=== PATIENT | male | born 1940 | race Caucasian/White ===

== ENCOUNTER 2020-04-08 06:21 | Day surgery (SDC) | payer MEDICARE ==
[2020-04-08] MEDS ORDERED: Sodium Chloride 0.9% 10 ML Syringe FLUSH PRN (07:30)
--- NOTE | 2020-04-08 09:39 | OR ---
DATE OF PROCEDURE: 04/08/2020 SURGEON: Taryn Reyes MD POSTOPERATIVE CARE: Postoperative care will be provided mainly at the [address] [place] [address] [facility] in conjunction with [facility] / [facility]. PREOPERATIVE DIAGNOSIS: Cataract, right eye. POSTOPERATIVE DIAGNOSIS: Cataract, right eye. PROCEDURE: Phacoemulsification with intraocular lens placement, right eye. ANESTHESIA: Topical and intracameral. ESTIMATED BLOOD LOSS: Minimal. COMPLICATIONS: None. PATHOLOGY SPECIMENS: None. SURGICAL FINDINGS: None. INDICATION FOR PROCEDURE: The patient is an 79-year-old male with history of a visually significant cataract in the right eye, which interfered with activities of daily living. This consisted of a nuclear sclerosis cataract. Following careful discussion of the risks, benefits and alternatives to cataract extraction with intraocular lens placement including blindness and , the patient elected to proceed, and informed, written consent was obtained prior to the procedure. DESCRIPTION OF THE PROCEDURE: The patient was previously identified, and a lincoln placed above the right eye. All sources, including the patient, indicated that the right eye was the correct eye. The patient was subsequently taken to the operating room where standard monitors were applied. The patient was then prepped and draped in the usual sterile fashion for ophthalmic surgery. Attention was first directed at the 12 o'clock position where a paracentesis port was fashioned. Shugar solution followed by Viscoat was instilled into the eye. Attention was then directed to the 8:30 position where a triplanar incision was made in a near-clear manner using a keratome. A continuous capsulorrhexis was then made using a combination of the cystotome and Utrata forceps. Hydrodissection was achieved using a balanced salt solution, and the lens rotated nicely. Phacoemulsification was then done using a modified [id number] technique without complication. Phaco time was 6.45 CDE. The remaining cortex was removed using the irrigation/aspiration handpiece. Provisc was then instilled into the eye. A Technis lens, model PCB00, at 25.0 Diopters was then placed in the capsular bag using an [place] injector. The remaining viscoelastic was removed using the irrigation/aspiration forceps. All wounds were then checked and found to be watertight. The lid speculum and drapes were removed. Maxitrol ointment was placed in the patient's right eye, and the eye was shielded. The patient tolerated the procedure well. The patient was instructed to follow up tomorrow. All needle and sponge counts were correct at the end of the procedure. Taryn Reyes MD /[id number]
== END 2020-04-08 08:41 | disposition home or self-care (01) ==
LOC: JP.SDS 06:21
PROVIDERS: ATTEND Ophthalmology
DX: E11.36 Type 2 diabetes mellitus with diabetic cataract (principal); I10 Essential (primary) hypertension

== ENCOUNTER 2020-04-22 06:17 | Day surgery (SDC) | payer MEDICARE ==
[2020-04-22] MEDS ORDERED: Sodium Chloride 0.9% 10 ML Syringe FLUSH PRN (07:00)
--- NOTE | 2020-04-22 11:22 | OR ---
DATE OF PROCEDURE: 04/22/2020 SURGEON: Taryn Reyes MD POSTOPERATIVE CARE: Postoperative care will be provided mainly at the [address] [place] [address] [facility] in conjunction with [facility] / [facility]. PREOPERATIVE DIAGNOSIS: Cataract, left eye. POSTOPERATIVE DIAGNOSIS: Cataract, left eye. PROCEDURE: Phacoemulsification with intraocular lens placement, left eye. ANESTHESIA: Topical and intracameral. ESTIMATED BLOOD LOSS: Minimal. COMPLICATIONS: None. PATHOLOGY SPECIMENS: None. SURGICAL FINDINGS: None. INDICATION FOR PROCEDURE: The patient is an 79-year-old male with history of a visually significant cataract in the left eye, which interfered with activities of daily living. This consisted of a nuclear sclerosis cataract. Following careful discussion of the risks, benefits and alternatives to cataract extraction with intraocular lens placement including blindness and , the patient elected to proceed, and informed, written consent was obtained prior to the procedure. DESCRIPTION OF THE PROCEDURE: The patient was previously identified, and a lincoln placed above the left eye. All sources, including the patient, indicated that the left eye was the correct eye. The patient was subsequently taken to the operating room where standard monitors were applied. The patient was then prepped and draped in the usual sterile fashion for ophthalmic surgery. Attention was first directed at the 12 o'clock position where a paracentesis port was fashioned. Shugar solution followed by Viscoat was instilled into the eye. Attention was then directed to the 8:30 position where a triplanar incision was made in a near-clear manner using a keratome. A continuous capsulorrhexis was then made using a combination of the cystotome and Utrata forceps. Hydrodissection was achieved using a balanced salt solution, and the lens rotated nicely. Phacoemulsification was then done using a modified [id number] technique without complication. Phaco time was 5.78 CDE. The remaining cortex was removed using the irrigation/aspiration handpiece. Provisc was then instilled into the eye. A Technis lens, model DCB00, at 24.5 diopters was then placed in the capsular bag using an [place] injector. The remaining viscoelastic was removed using the irrigation/aspiration forceps. All wounds were then checked and found to be watertight. The lid speculum and drapes were removed. Maxitrol ointment was placed in the patient's left eye, and the eye was shielded. The patient tolerated the procedure well. The patient was instructed to follow up tomorrow. All needle and sponge counts were correct at the end of the procedure. There were no surgical findings. Taryn Reyes MD /[id number]
== END 2020-04-22 08:32 | disposition home or self-care (01) ==
LOC: JP.SDS 06:17
PROVIDERS: ATTEND Ophthalmology
DX: H26.9 Unspecified cataract (principal)
CPT/HCPCS: 66984; V2632

== ENCOUNTER 2020-06-07 18:49 | Observation (INO) | payer MEDICARE ==
--- NOTE | 2020-06-07 19:31 | EDM.PDOC ---
ED HPI GENERAL MEDICAL PROBLEM - General Chief Complaint: Cardiovascular Problem Stated Complaint: LOW PULSE, MID BACK PAIN Time Seen by Provider: 06/07/20 19:30 Source of Information: Reports: Patient, Old Records, RN History Limitations: Reports: No Limitations - History of Present Illness INITIAL COMMENTS - FREE TEXT/NARRATIVE: 79 yo male was drinking a pop and developed pain between his shoulder blades. He tried a couple of different antacids at home without relief. Pain is not worse with movement or breathing. He noticed his HR is slower than normal. No nausea or SOB. No new medications. No black or bloody stools. No hx of the same. No relief with burping. Is already taking ASA daily. He thinks his normal HR is closer to 90/min. A review of his prior ER record shows a HR at that time of 85/min, but he was not on metoprolol then as he is now. Onset: Today, Sudden Onset Date: 06/07/20 Duration: Hour(s):, Constant Location: Reports: Back (mid) Quality: Reports: Ache Severity: Moderate Improves with: Reports: None Worsens with: Reports: None Context: Reports: Other (See HPI) Associated Symptoms: Denies: Chest Pain, Cough, Diaphoresis, Fever/Chills, Nausea/Vomiting, Shortness of Breath Treatments MONUMENT MASON: Reports: Other (see below) (See HPI) Posterior Back Pain Score (Numeric/FACES): 7 - Related Data Allergies Allergy/AdvReac Type Severity Reaction Status Date / Time No Known Allergies Allergy Verified 06/07/20 19:13 Home Meds: Home Meds Aspirin 81 mg PO DAILY 01/15/18 [History] Cetirizine HCl [Zyrtec] 10 mg PO BEDTIME PRN 01/15/18 [History] Lovastatin [Mevacor] 10 mg PO DAILY 01/15/18 [History] Multivitamin with Minerals [Multiple Vitamin] 1 tab PO DAILY 01/15/18 [History] lisinopriL [Prinivil] 10 mg PO DAILY 01/15/18 [History] metFORMIN HCl [Metformin HCl] 1,000 mg PO BID 01/15/18 [History] Albuterol/Ipratropium [Combivent Respimat] 1 puff IH Q4H PRN 04/06/20 [History] Levothyroxine Sodium [Euthyrox] 112 mcg PO DAILY 04/06/20 [History] glipiZIDE [Glucotrol XL] 2.5 mg PO BID 04/06/20 [History] Past Medical History HEENT History: Reports: Cataract, Impaired Vision, Other (See Below) Other HEENT History: wears glasses Cardiovascular History: Reports: High Cholesterol, Hypertension Gastrointestinal History: Reports: GERD Genitourinary History: Reports: Other (See Below) Other Genitourinary History: prostate CA Musculoskeletal History: Reports: Fracture Endocrine/Metabolic History: Reports: Diabetes, Type II, Hypothyroidism Oncologic (Cancer) History: Reports: Prostate Dermatologic History: Reports: Eczema - Infectious Disease History Infectious Disease History: Reports: Chicken Pox, Shingles - Past Surgical History HEENT Surgical History: Reports: Cataract Surgery, Tonsillectomy GI Surgical History: Reports: Colonoscopy Male Surgical History: Reports: Other (See Below) Other Male Surgeries/Procedures: enlarged prostate - "they froze it" Musculoskeletal Surgical History: Reports: Arthroscopic Knee Social & Family History - Family History Family Medical History: No Pertinent Family History - Tobacco Use Tobacco Use Status *Q: Never Tobacco User - Caffeine Use Caffeine Use: Reports: Coffee, Soda - Recreational Drug Use Recreational Drug Use: No ED ROS GENERAL - Review of Systems Review Of Systems: See Below Constitutional: Reports: No Symptoms HEENT: Reports: No Symptoms Respiratory: Reports: No Symptoms Cardiovascular: Reports: No Symptoms GI/Abdominal: Reports: No Symptoms : Reports: No Symptoms Musculoskeletal: Reports: Back Pain (mid thoracic) Skin: Reports: No Symptoms Neurological: Reports: No Symptoms ED EXAM, GENERAL - Physical Exam Exam: See Below Exam Limited By: No Limitations General Appearance: Alert, WD/WN, No Apparent Distress Eye Exam: Bilateral Eye: Normal Inspection Ears: Normal External Exam, Normal Canal, Hearing Grossly Normal, Normal TMs Ear Exam: Bilateral Ear: Auricle Normal, Canal Normal, TM normal Nose: Normal Inspection, No Blood Throat/Mouth: Normal Inspection, Normal Lips, Normal Oropharynx, Normal Voice, No Airway Compromise Head: Atraumatic, Normocephalic Neck: Normal Inspection Respiratory/Chest: No Respiratory Distress, Lungs Clear, Normal Breath Sounds, No Accessory Muscle Use, Chest Non-Tender Cardiovascular: Regular Rate, Rhythm, No Edema GI/Abdominal: Normal Bowel Sounds, Soft, Non-Tender, No Distention. No: Distended, Tender Back Exam: Normal Inspection. No: CVA Tenderness (R), CVA Tenderness (L), Paraspinal Tenderness (none), Vertebral Tenderness (none) Extremities: Normal Inspection, Normal Range of Motion, Non-Tender, No Pedal Edema Neurological: Alert, Oriented, CN II-XII Intact, Normal Cognition, No Motor /Sensory Deficits Psychiatric: Normal Affect, Normal Mood Skin Exam: Warm, Dry, Intact, Normal Color, No Rash #1 Interpretation EKG Date: 06/07/20 Time: 19:25 Rhythm: NSR Rate (Beats/Min): 59 [place]: Normal P-Wave: Present QRS: Normal ST-T: Normal QT: Normal Comparison: NA - No Prior EKG #2 Interpretation EKG Date: 06/07/20 Time: 20:15 Rhythm: NSR Rate (Beats/Min): 49 [place]: Normal P-Wave: Present QRS: Normal ST-T: Normal QT: Normal Comparison: Change From Previous EKG (Rate decrease only noted.) Course - Vital Signs Text/Narrative:: CXR-negative Raciel Otto called @ 0008h Last Recorded V/S: Last Vital Signs Temp 36.5 C 06/07/20 19:14 Pulse 54 L 06/07/20 23:00 Resp 13 06/07/20 23:00 BP 117/54 L 06/07/20 23:00 Pulse Ox 98 06/07/20 23:00 - Orders/Labs/Meds Orders: Active Orders 24 hr Category Date Time Status Cardiac Monitoring [RC] .As Directed Care 06/07/20 18:53 Active EKG Documentation Completion [RC] ASDIRECTED Care 06/07/20 19:20 Active EKG Documentation Completion [RC] ASDIRECTED Care 06/07/20 20:12 Active Oxygen Therapy Adult [Oxygen Therapy, ED] [RC] Care 06/07/20 20:12 Active ASDIRECTED Chest 2V [CR] Stat Exams 06/07/20 19:38 Taken Iopamidol [Isovue-300 (61%)] Med 06/07/20 22:15 Active 100 ml IV . DIRECTED Nitroglycerin [Nitrostat] Med 06/07/20 20:45 Active 0.4 mg SL Q5M PRN Sodium Chloride 0.9% [Normal Saline] 1,000 ml Med 06/07/20 20:15 Active IV ASDIRECTED Sodium Chloride 0.9% [Normal Saline] 80 ml Med 06/07/20 22:15 Active IV ASDIRECTED Sodium Chloride 0.9% [Saline Flush] Med 06/07/20 19:20 Active 10 ml FLUSH ASDIRECTED PRN Saline Lock Insert [OM.PC] Routine Oth 06/07/20 19:20 Ordered EKG 12 Lead [EK] Routine Ther 06/07/20 19:20 Ordered EKG 12 Lead [EK] Routine Ther 06/07/20 20:12 Ordered Medication Orders Sodium Chloride (Normal Saline) 1,000 mls @ 150 mls/hr IV ASDIRECTED JEYSON Last Admin: 06/07/20 20:13 Dose: 150 mls/hr Documented by: PANDA Sodium Chloride (Normal Saline) 80 mls @ 3 mls/sec IV ASDIRECTED [facility] Last Admin: 06/07/20 22:22 Dose: 3 mls/sec Documented by: MARCIO Iopamidol (Iopamidol 612 Mg/Ml 100 Ml Bottle) 100 ml IV . DIRECTED [facility] Last Admin: 06/07/20 22:22 Dose: 100 ml Documented by: MARCIO Nitroglycerin (Nitroglycerin 0.4 Mg Tab.Sl) 0.4 mg SL Q5M PRN PRN Reason: Chest Pain Last Admin: 06/07/20 21:20 Dose: 0.4 mg Documented by: Admin: 06/07/20 20:51 Dose: 0.4 mg Documented by: PANDA Sodium Chloride (Sodium Chloride 0.9% 10 Ml Syringe) 10 ml FLUSH ASDIRECTED PRN PRN Reason: Keep Vein Open Last Admin: 06/07/20 21:10 Dose: 10 ml Documented by: Admin: 06/07/20 19:47 Dose: 10 ml Documented by: PANDA Labs: Laboratory Tests 06/07/20 06/07/20 06/07/20 Range/Units 19:35 19:35 19:35 WBC 6.5 (4.5-11.0) K/uL RBC 4.62 (4.30-5.90) M/uL Hgb 13.1 (12.0-15.0) g/dL Hct 40.7 (40.0-54.0) % MCV 88 (80-98) fL MCH 28 (27-31) pg MCHC 32 (32-36) % Plt Count 268 (150-400) K/uL Sodium 142 (140-148) mmol/L Potassium 4.4 (3.6-5.2) mmol/L Chloride 103 (100-108) mmol/L Carbon Dioxide 27 (21-32) mmol/L Anion Gap 11.9 (5.0-14.0) mmol/L BUN 17 (7-18) mg/dL Creatinine 1.0 (0.8-1.3) mg/dL Est Cr Clr Drug Dosing 56.05 mL/min Estimated GFR (MDRD) > 60 (>60) Glucose 160 H (74-106) mg/dL Calcium 9.4 (8.5-10.1) mg/dL Total Bilirubin (0.2-1.0) mg/dL Direct Bilirubin (0.0-0.2) mg/dL Indirect Bilirubin AST (15-37) U/L ALT (12-78) U/L Alkaline Phosphatase (46-116) U/L Troponin I 0.027 (0.000-0.056) ng/mL C-Reactive Protein (0.0-0.3) mg/dL Total Protein (6.4-8.2) g/dL Albumin (3.4-5.0) g/dL Globulin (2.3-3.5) g/dL Albumin/Globulin Ratio (1.2-2.2) Lipase (73-393) U/L 06/07/20 06/07/20 06/07/20 Range/Units 19:35 19:35 21:26 WBC (4.5-11.0) K/uL RBC (4.30-5.90) M/uL Hgb (12.0-15.0) g/dL Hct (40.0-54.0) % MCV (80-98) fL MCH (27-31) pg MCHC (32-36) % Plt Count (150-400) K/uL Sodium (140-148) mmol/L Potassium (3.6-5.2) mmol/L Chloride (100-108) mmol/L Carbon Dioxide (21-32) mmol/L Anion Gap (5.0-14.0) mmol/L BUN (7-18) mg/dL Creatinine (0.8-1.3) mg/dL Est Cr Clr Drug Dosing mL/min Estimated GFR (MDRD) (>60) Glucose (74-106) mg/dL Calcium (8.5-10.1) mg/dL Total Bilirubin (0.2-1.0) mg/dL Direct Bilirubin (0.0-0.2) mg/dL Indirect Bilirubin AST (15-37) U/L ALT (12-78) U/L Alkaline Phosphatase (46-116) U/L Troponin I 0.027 (0.000-0.056) ng/mL C-Reactive Protein 0.69 H (0.0-0.3) mg/dL Total Protein (6.4-8.2) g/dL Albumin (3.4-5.0) g/dL Globulin (2.3-3.5) g/dL Albumin/Globulin Ratio (1.2-2.2) Lipase 69 L (73-393) U/L 06/07/20 Range/Units 23:30 WBC (4.5-11.0) K/uL RBC (4.30-5.90) M/uL Hgb (12.0-15.0) g/dL Hct (40.0-54.0) % MCV (80-98) fL MCH (27-31) pg MCHC (32-36) % Plt Count (150-400) K/uL Sodium (140-148) mmol/L Potassium (3.6-5.2) mmol/L Chloride (100-108) mmol/L Carbon Dioxide (21-32) mmol/L Anion Gap (5.0-14.0) mmol/L BUN (7-18) mg/dL Creatinine (0.8-1.3) mg/dL Est Cr Clr Drug Dosing mL/min Estimated GFR (MDRD) (>60) Glucose (74-106) mg/dL Calcium (8.5-10.1) mg/dL Total Bilirubin 0.2 (0.2-1.0) mg/dL Direct Bilirubin 0.05 (0.0-0.2) mg/dL Indirect Bilirubin TNP AST 21 (15-37) U/L ALT 27 (12-78) U/L Alkaline Phosphatase 105 (46-116) U/L Troponin I (0.000-0.056) ng/mL C-Reactive Protein (0.0-0.3) mg/dL Total Protein 6.7 (6.4-8.2) g/dL Albumin 3.6 (3.4-5.0) g/dL Globulin 3.1 (2.3-3.5) g/dL Albumin/Globulin Ratio 1.2 (1.2-2.2) Lipase (73-393) U/L Meds: Medications Generic Name Dose Route Start Last Admin Trade Name Jose Manuelq PRN Reason Stop Dose Admin Sodium Chloride 1,000 mls @ 150 mls/hr 06/07/20 20:15 06/07/20 20:13 Normal Saline IV 150 mls/hr ASDIRECTED JEYSON Administration Sodium Chloride 80 mls @ 3 mls/sec 06/07/20 22:15 06/07/20 22:22 Normal Saline IV 3 mls/sec ASDIRECTED JEYSON Administration Iopamidol 100 ml 06/07/20 22:15 06/07/20 22:22 Iopamidol 612 Mg/Ml 100 Ml Bottle IV 100 ml . DIRECTED JEYSON Administration Nitroglycerin 0.4 mg 06/07/20 20:45 06/07/20 21:20 Nitroglycerin 0.4 Mg Tab.Sl SL 0.4 mg Q5M PRN Administration Chest Pain Sodium Chloride 10 ml 06/07/20 19:20 06/07/20 21:10 Sodium Chloride 0.9% 10 Ml Syringe FLUSH 10 ml ASDIRECTED PRN Administration Keep Vein Open Discontinued Medications Generic Name Dose Route Start Last Admin Trade Name Galileo PRN Reason Stop Dose Admin Al Hydroxide/Mg Hydroxide 15 0 ml 06/07/20 19:38 06/07/20 19:50 ml/ Lidocaine HCl 15 ml PO 06/07/20 19:39 30 ml ONETIME ONE Administration Hydromorphone HCl 0.5 mg 06/07/20 22:05 06/07/20 22:10 Hydromorphone 0.5 Mg/0.5 Ml Syringe IVPUSH 06/07/20 22:06 0.5 mg ONETIME ONE Administration Ondansetron HCl 4 mg 06/07/20 21:04 06/07/20 21:09 Ondansetron 4 Mg/2 Ml Sdv IV 06/07/20 21:05 4 mg ONETIME ONE Administration Simethicone 160 mg 06/07/20 19:58 06/07/20 20:08 Simethicone 80 Mg Tab.Chew PO 06/07/20 19:59 160 mg ONETIME ONE Administration - Radiology Interpretation Free Text/Narrative:: CXR-neg CT chest with IV contrast- IMPRESSION: 1. Mild bibasilar discoid atelectasis. 2. 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 3. Coronary atherosclerosis with some prominent plaque noted at the proximal left anterior descending artery. Please note that all CT scans at this facility use dose modulation, iterative reconstruction, and/or weight-based dosing when appropriate to reduce radiation dose to as low as reasonably achievable. Dictated by Manuel Wilkinson MD @ Jun 07 2020 11:05PM CT Results Date: 06/07/20 - Re-Assessments/Exams Free Text/Narrative Re-Assessment/Exam: 06/07/20 20:06 Got some relief he thinks with the GI cocktail. Free Text/Narrative Re-Assessment/Exam: 06/07/20 20:14 Feeling a little clammy. Free Text/Narrative Re-Assessment/Exam: 06/07/20 21:01 Back pain gone after NTG x one 06/07/20 21:05 Now complains of nausea, will give Zofran IV 2105h 06/07/20 21:30 2130h, No change in pain with 2nd NTG, BP dropped to 107 this time whereas it did not change with the last dose. Departure - Departure Time of Disposition: 00:20 Disposition: Refer to Observation Condition: Fair Clinical Impression: Upper back pain, Nausea Referrals: Suri Maynard PA-C [Primary Care Provider] - Forms: ED Department Discharge Sepsis Event Note (ED) - Evaluation Sepsis Screening Result: No Definite Risk - Focused Exam Vital Signs: Vital Signs Temp Pulse Resp BP BP Pulse Ox 06/07/20 23:00 54 L 13 117/54 L 98 06/07/20 22:40 53 L 12 133/56 L 98 06/07/20 22:06 52 L 16 123/48 L 99 06/07/20 21:33 59 L 15 107/35 L 97 06/07/20 21:20 142/60 H 06/07/20 21:01 53 L 18 140/72 98 06/07/20 20:56 52 L 141/69 H 06/07/20 20:51 140/59 L 06/07/20 19:47 60 13 152/67 H 99 06/07/20 19:14 36.5 C 57 L 14 143/59 H 97 - My Orders Last 24 Hours: My Active Orders 06/07/20 18:53 Cardiac Monitoring [RC] .As Directed 06/07/20 19:20 EKG Documentation Completion [RC] ASDIRECTED Sodium Chloride 0.9% [Saline Flush] 10 ml FLUSH ASDIRECTED PRN Saline Lock Insert [OM.PC] Routine EKG 12 Lead [EK] Routine 06/07/20 19:38 Chest 2V [CR] Stat 06/07/20 20:12 EKG Documentation Completion [RC] ASDIRECTED Oxygen Therapy Adult [Oxygen Therapy, ED] [RC] ASDIRECTED EKG 12 Lead [EK] Routine 06/07/20 20:15 Sodium Chloride 0.9% [Normal Saline] 1,000 ml IV ASDIRECTED 06/07/20 20:45 Nitroglycerin [Nitrostat] 0.4 mg SL Q5M PRN 06/07/20 22:15 Iopamidol [Isovue-300 (61%)] 100 ml IV . DIRECTED Sodium Chloride 0.9% [Normal Saline] 80 ml IV ASDIRECTED - Assessment/Plan Last 24 Hours: My Active Orders 06/07/20 18:53 Cardiac Monitoring [RC] .As Directed 06/07/20 19:20 EKG Documentation Completion [RC] ASDIRECTED Sodium Chloride 0.9% [Saline Flush] 10 ml FLUSH ASDIRECTED PRN Saline Lock Insert [OM.PC] Routine EKG 12 Lead [EK] Routine 06/07/20 19:38 Chest 2V [CR] Stat 06/07/20 20:12 EKG Documentation Completion [RC] ASDIRECTED Oxygen Therapy Adult [Oxygen Therapy, ED] [RC] ASDIRECTED EKG 12 Lead [EK] Routine 06/07/20 20:15 Sodium Chloride 0.9% [Normal Saline] 1,000 ml IV ASDIRECTED 06/07/20 20:45 Nitroglycerin [Nitrostat] 0.4 mg SL Q5M PRN 06/07/20 22:15 Iopamidol [Isovue-300 (61%)] 100 ml IV . DIRECTED Sodium Chloride 0.9% [Normal Saline] 80 ml IV ASDIRECTED
[2020-06-07] MEDS ORDERED: Alum Hydrox/Mag Hydrox/Simeth 15 ML, Lidocaine 2% 15 ML PO ONE ×2 (19:38)
[2020-06-07] MEDS: Sodium Chloride 0.9% 10 ML Syringe FLUSH PRN ×2 (19:47→21:10)
[2020-06-07] MEDS ORDERED: Simethicone 80 MG Tab.Chew PO ONE (19:58)
[2020-06-07] MEDS ORDERED: Sodium Chloride 0.9% 1,000 ML IV SCH (20:15)
[2020-06-07] MEDS: Nitroglycerin 0.4 MG Tab.SL SL PRN ×2 (20:51→21:20)
[2020-06-07] MEDS ORDERED: Ondansetron 4 MG/2 ML SDV IV ONE (21:04)
[2020-06-07] MEDS ORDERED: HYDROmorphone 0.5 MG/0.5 ML Syringe IVPUSH ONE (22:05)
[2020-06-07] MEDS ORDERED: Iopamidol 612 MG/ML 100 ML Bottle IV SCH (22:15)
[2020-06-07] MEDS ORDERED: Sodium Chloride 0.9% 80 ML IV SCH (22:15)
--- NOTE | 2020-06-07 23:29 | CRLCT ---
INDICATION: Back pain through scapulas TECHNIQUE: Axial images were obtained from the thoracic inlet to the diaphragm. Reformats: Coronal and sagittal IV Contrast: 100 cc Isovue-300 COMPARISON: None. FINDINGS: Mediastinum: No pericardial effusion. Coronary atherosclerosis with prominent LAD plaque. Thoracic aorta is normal in caliber. Mild atherosclerotic calcification. Lungs and Pleural Space: No pleural effusion or pneumothorax. Basilar discoid atelectasis. Chest wall: No masses. Upper abdomen: Mild stenosis of the celiac artery with some poststenotic dilatation. Bones: Unremarkable for age. IMPRESSION: 1. Mild bibasilar discoid atelectasis. 2. 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 3. Coronary atherosclerosis with some prominent plaque noted at the proximal left anterior descending artery. Please note that all CT scans at this facility use dose modulation, iterative reconstruction, and/or weight-based dosing when appropriate to reduce radiation dose to as low as reasonably achievable. Dictated by Manuel Wilkinson MD @ Jun 07 2020 11:05PM Signed by Dr. Manuel Wilkinson @ Jun 07 2020 11:27PM
[2020-06-08] MEDS ORDERED: Cetirizine 10 MG Tab PO PRN (01:55)
[2020-06-08] MEDS ORDERED: Albuterol 0.083% 2.5 MG/3 ML Neb Soln NEB PRN (01:55)
[2020-06-08] MEDS ORDERED: Albuterol/Ipratropium 4 GM Inhalation Spray INH PRN (01:55)
[2020-06-08] MEDS ORDERED: oxyCODONE 5 MG Tab PO PRN (01:55)
[2020-06-08] MEDS ORDERED: Ondansetron 4 MG/2 ML SDV IV PRN (01:55)
[2020-06-08] MEDS ORDERED: LORazepam 2 MG/ML SDV IV PRN (01:55)
[2020-06-08] MEDS ORDERED: Docusate Sodium 100 MG Cap PO PRN (01:55)
[2020-06-08] MEDS ORDERED: Morphine 2 MG/ML SYRINGE IVPUSH PRN (01:55)
[2020-06-08] MEDS ORDERED: Ondansetron 4 MG Tab.DIS PO PRN (01:55)
[2020-06-08] MEDS ORDERED: Bisacodyl 5 MG Tab PO PRN (01:55)
[2020-06-08] MEDS ORDERED: Acetaminophen 325 MG Tab PO PRN (01:55)
--- NOTE | 2020-06-08 02:35 | PCM.HP.2 ---
H&P History of Present Illness - General Date of Service: 06/07/20 Admit Problem/Dx: Admission Diagnosis/Problem Admission Diagnosis/Problem Back pain Source of Information: Patient, Provider, RN History Limitations: Reports: No Limitations - History of Present Illness Initial Comments - Free Text/Narative: chief complaint: back pain radiates to chest. 79 yo male was drinking a pop and developed pain between his shoulder blades. He tried a couple of different antacids at home without relief. Pain is not worse with movement or breathing. He noticed his HR is slower than normal. No nausea or SOB. No new medications. No black or bloody stools. No hx of the same. No relief with burping. Is already taking ASA daily. He thinks his normal HR is closer to 90/min. A review of his prior ER record shows a HR at that time of 85/min, but he was not on metoprolol then as he is now. Onset: Today, Sudden at noon. Onset of Symptoms: Reports: Today Symptom Onset Date: 06/07/20 Symptom Onset Time: 12:00 Duration of Symptoms: Reports: Waxing/Waning Location: Reports: Chest Quality: Reports: Pressure Severity: Moderate (now resolved at time of admission) Improves with: Reports: Medication Worsens with: Reports: None Associated Symptoms: Reports: Chest Pain, Nausea/Vomiting Posterior Back Pain Score (Numeric/FACES): 7 - Related Data Allergies/Adverse Reactions: Allergies Allergy/AdvReac Type Severity Reaction Status Date / Time No Known Allergies Allergy Verified 06/08/20 02:09 Home Medications: Home Meds Aspirin 81 mg PO DAILY 01/15/18 [History] Cetirizine HCl [Zyrtec] 10 mg PO BEDTIME PRN 01/15/18 [History] Lovastatin [Mevacor] 10 mg PO DAILY 01/15/18 [History] Multivitamin with Minerals [Multiple Vitamin] 1 tab PO DAILY 01/15/18 [History] lisinopriL [Prinivil] 10 mg PO DAILY 01/15/18 [History] metFORMIN HCl [Metformin HCl] 1,000 mg PO BID 01/15/18 [History] Albuterol/Ipratropium [Combivent Respimat] 1 puff IH Q4H PRN 04/06/20 [History] Levothyroxine Sodium [Euthyrox] 112 mcg PO DAILY 04/06/20 [History] glipiZIDE [Glucotrol XL] 2.5 mg PO BID 04/06/20 [History] Past Medical History HEENT History: Reports: Cataract, Impaired Vision, Other (See Below) Other HEENT History: wears glasses Cardiovascular History: Reports: High Cholesterol, Hypertension Gastrointestinal History: Reports: GERD Genitourinary History: Reports: Other (See Below) Other Genitourinary History: prostate CA Musculoskeletal History: Reports: Fracture Neurological History: Reports: Headaches, Chronic Endocrine/Metabolic History: Reports: Diabetes, Type II, Hypothyroidism Oncologic (Cancer) History: Reports: Prostate Dermatologic History: Reports: Eczema - Infectious Disease History Infectious Disease History: Reports: Chicken Pox, Measles, Mumps, Novel Coronavirus, Shingles - Past Surgical History HEENT Surgical History: Reports: Cataract Surgery, Tonsillectomy GI Surgical History: Reports: Colonoscopy Male Surgical History: Reports: Other (See Below) Other Male Surgeries/Procedures: enlarged prostate - "they froze it" Musculoskeletal Surgical History: Reports: Arthroscopic Knee Social & Family History - Family History Family Medical History: No Pertinent Family History - Tobacco Use Tobacco Use Status *Q: Never Tobacco User - Caffeine Use Caffeine Use: Reports: Coffee - Recreational Drug Use Recreational Drug Use: No - Living Situation & Occupation Living situation: Reports: Occupation: Retired (lives with 3 blocks from the hospital.) H&P Review of Systems - Review of Systems: Review Of Systems: See Below General: Reports: No Symptoms, Other (symtoms have resolved with medication given in ER.) HEENT: Reports: Glasses Pulmonary: Reports: No Symptoms Cardiovascular: Reports: No Symptoms Gastrointestinal: Reports: No Symptoms Genitourinary: Reports: No Symptoms Musculoskeletal: Reports: Back Pain (upper back pain between the shoulder blades, now resolved.) Skin: Reports: No Symptoms Psychiatric: Reports: No Symptoms Neurological: Reports: No Symptoms Hematologic/Lymphatic: Reports: No Symptoms Immunologic: Reports: No Symptoms Exam - Exam Exam: See Below - Vital Signs Vital Signs: Last Vital Signs Temp 96.7 F L 06/08/20 02:00 Pulse 70 06/08/20 00:30 Resp 14 06/08/20 02:00 BP 140/65 06/08/20 02:00 Pulse Ox 95 06/08/20 02:00 Weight: 361 lb 8.929 oz - Exam General: Alert, Oriented, Cooperative, Other (pleasant, talkative male in no distress. denies any pain or discomfort) HEENT: PERRLA, Hearing Intact, Mucosa Moist & [place], Nares Patent, Normal Nasal Septum, Posterior Pharynx Clear, Conjunctiva Clear, EOMI, EACs Clear, TMs Clear Neck: Supple, Trachea Midline, 2 Lungs: Clear to Auscultation, Normal Respiratory Effort Cardiovascular: Regular Rate, Regular Rhythm, Normal S1, Normal S2 GI/Abdominal Exam: Normal Bowel Sounds, Soft, Non-Tender, No Organomegaly, No Distention, No Abnormal Bruit, No Mass, Pelvis Stable (Male) Exam: Deferred Rectal (Males) Exam: Deferred Back Exam: Normal Inspection, Full Range of Motion Extremities: Normal Inspection, Normal Range of Motion, Non-Tender, No Pedal Edema, Normal Capillary Refill Peripheral Pulses: 2+: Radial (L), Radial (R), Dorsalis Pedis (L), Dorsalis Pedis (R) Skin: Warm, Dry, Intact Neurological: Cranial Nerves Intact, Strength Equal Bilateral Neuro Extensive - Mental Status: Alert, Oriented x3, Normal Mood/Affect, Normal Cognition Neuro Extensive - Motor, Sensory, Reflexes: CN II-XII Intact, Normal Reflexes Psychiatric: Alert, Normal Affect, Normal Mood - Patient Data Lab Results Last 24 hrs: Laboratory Results - last 24 hr 06/07/20 06/07/20 06/07/20 Range/Units 19:35 19:35 19:35 WBC 6.5 (4.5-11.0) K/uL RBC 4.62 (4.30-5.90) M/uL Hgb 13.1 (12.0-15.0) g/dL Hct 40.7 (40.0-54.0) % MCV 88 (80-98) fL MCH 28 (27-31) pg MCHC 32 (32-36) % Plt Count 268 (150-400) K/uL Sodium 142 (140-148) mmol/L Potassium 4.4 (3.6-5.2) mmol/L Chloride 103 (100-108) mmol/L Carbon Dioxide 27 (21-32) mmol/L Anion Gap 11.9 (5.0-14.0) mmol/L BUN 17 (7-18) mg/dL Creatinine 1.0 (0.8-1.3) mg/dL Est Cr Clr Drug Dosing 56.05 mL/min Estimated GFR (MDRD) > 60 (>60) Glucose 160 H (74-106) mg/dL Calcium 9.4 (8.5-10.1) mg/dL Total Bilirubin (0.2-1.0) mg/dL Direct Bilirubin (0.0-0.2) mg/dL Indirect Bilirubin AST (15-37) U/L ALT (12-78) U/L Alkaline Phosphatase (46-116) U/L Troponin I 0.027 (0.000-0.056) ng/mL C-Reactive Protein (0.0-0.3) mg/dL Total Protein (6.4-8.2) g/dL Albumin (3.4-5.0) g/dL Globulin (2.3-3.5) g/dL Albumin/Globulin Ratio (1.2-2.2) Lipase (73-393) U/L TSH, Ultra Sensitive (0.358-3.740) uIU/mL Urine Color (YELLOW) Urine Appearance (CLEAR) Urine pH (5.0-8.0) Ur Specific [place] (1.008-1.030) Urine Protein (NEGATIVE) mg/dL Urine Glucose (UA) (NEGATIVE) mg/dL Urine Ketones (NEGATIVE) mg/dL Urine Occult Blood (NEGATIVE) Urine Nitrite (NEGATIVE) Urine Bilirubin (NEGATIVE) Urine Urobilinogen (0.2-1.0) EU/dL Ur Leukocyte Esterase (NEGATIVE) Urine RBC (0-5) Urine WBC (0-5) Ur Epithelial Cells Amorphous Sediment Urine Bacteria Urine Mucus 06/07/20 06/07/20 06/07/20 Range/Units 19:35 19:35 21:26 WBC (4.5-11.0) K/uL RBC (4.30-5.90) M/uL Hgb (12.0-15.0) g/dL Hct (40.0-54.0) % MCV (80-98) fL MCH (27-31) pg MCHC (32-36) % Plt Count (150-400) K/uL Sodium (140-148) mmol/L Potassium (3.6-5.2) mmol/L Chloride (100-108) mmol/L Carbon Dioxide (21-32) mmol/L Anion Gap (5.0-14.0) mmol/L BUN (7-18) mg/dL Creatinine (0.8-1.3) mg/dL Est Cr Clr Drug Dosing mL/min Estimated GFR (MDRD) (>60) Glucose (74-106) mg/dL Calcium (8.5-10.1) mg/dL Total Bilirubin (0.2-1.0) mg/dL Direct Bilirubin (0.0-0.2) mg/dL Indirect Bilirubin AST (15-37) U/L ALT (12-78) U/L Alkaline Phosphatase (46-116) U/L Troponin I 0.027 (0.000-0.056) ng/mL C-Reactive Protein 0.69 H (0.0-0.3) mg/dL Total Protein (6.4-8.2) g/dL Albumin (3.4-5.0) g/dL Globulin (2.3-3.5) g/dL Albumin/Globulin Ratio (1.2-2.2) Lipase 69 L (73-393) U/L TSH, Ultra Sensitive (0.358-3.740) uIU/mL Urine Color (YELLOW) Urine Appearance (CLEAR) Urine pH (5.0-8.0) Ur Specific [place] (1.008-1.030) Urine Protein (NEGATIVE) mg/dL Urine Glucose (UA) (NEGATIVE) mg/dL Urine Ketones (NEGATIVE) mg/dL Urine Occult Blood (NEGATIVE) Urine Nitrite (NEGATIVE) Urine Bilirubin (NEGATIVE) Urine Urobilinogen (0.2-1.0) EU/dL Ur Leukocyte Esterase (NEGATIVE) Urine RBC (0-5) Urine WBC (0-5) Ur Epithelial Cells Amorphous Sediment Urine Bacteria Urine Mucus 06/07/20 06/08/20 06/08/20 Range/Units 23:30 00:35 01:03 WBC (4.5-11.0) K/uL RBC (4.30-5.90) M/uL Hgb (12.0-15.0) g/dL Hct (40.0-54.0) % MCV (80-98) fL MCH (27-31) pg MCHC (32-36) % Plt Count (150-400) K/uL Sodium (140-148) mmol/L Potassium (3.6-5.2) mmol/L Chloride (100-108) mmol/L Carbon Dioxide (21-32) mmol/L Anion Gap (5.0-14.0) mmol/L BUN (7-18) mg/dL Creatinine (0.8-1.3) mg/dL Est Cr Clr Drug Dosing mL/min Estimated GFR (MDRD) (>60) Glucose (74-106) mg/dL Calcium (8.5-10.1) mg/dL Total Bilirubin 0.2 (0.2-1.0) mg/dL Direct Bilirubin 0.05 (0.0-0.2) mg/dL Indirect Bilirubin TNP AST 21 (15-37) U/L ALT 27 (12-78) U/L Alkaline Phosphatase 105 (46-116) U/L Troponin I (0.000-0.056) ng/mL C-Reactive Protein (0.0-0.3) mg/dL Total Protein 6.7 (6.4-8.2) g/dL Albumin 3.6 (3.4-5.0) g/dL Globulin 3.1 (2.3-3.5) g/dL Albumin/Globulin Ratio 1.2 (1.2-2.2) Lipase (73-393) U/L TSH, Ultra Sensitive 1.113 (0.358-3.740) uIU/mL Urine Color Yellow (YELLOW) Urine Appearance Clear (CLEAR) Urine pH 6.0 (5.0-8.0) Ur Specific [place] 1.015 (1.008-1.030) Urine Protein Negative (NEGATIVE) mg/dL Urine Glucose (UA) 500 H (NEGATIVE) mg/dL Urine Ketones Negative (NEGATIVE) mg/dL Urine Occult Blood Trace-intact H (NEGATIVE) Urine Nitrite Negative (NEGATIVE) Urine Bilirubin Negative (NEGATIVE) Urine Urobilinogen 1.0 (0.2-1.0) EU/dL Ur Leukocyte Esterase Negative (NEGATIVE) Urine RBC 0-5 (0-5) Urine WBC 0-5 (0-5) Ur Epithelial Cells Rare Amorphous Sediment Not seen Urine Bacteria Few Urine Mucus Not seen Result Diagrams: 06/07/20 19:35 06/07/20 19:35 Sepsis Event Note - Evaluation Sepsis Screening Result: No Definite Risk - Focused Exam Vital Signs: Vital Signs Temp Pulse Resp BP BP Pulse Ox 06/08/20 02:00 96.7 F L 14 140/65 95 06/08/20 00:30 70 14 140/63 98 06/08/20 00:00 58 L 14 129/48 L 97 06/07/20 23:30 50 L 126/43 L 06/07/20 23:00 54 L 13 117/54 L 98 06/07/20 22:40 53 L 12 133/56 L 98 06/07/20 22:06 52 L 16 123/48 L 99 06/07/20 21:33 59 L 15 107/35 L 97 06/07/20 21:20 142/60 H 06/07/20 21:01 53 L 18 140/72 98 06/07/20 20:56 52 L 141/69 H 06/07/20 20:51 140/59 L 06/07/20 19:47 60 13 152/67 H 99 06/07/20 19:14 97.7 F 57 L 14 143/59 H 97 - Problem List (1) Upper back pain SNOMED Code(s): 112063391 ICD Code: M54.9 - DORSALGIA, UNSPECIFIED Status: Acute Priority: High Current Visit: Yes (2) Type 2 diabetes mellitus SNOMED Code(s): 31019804 ICD Code: E11.9 - TYPE 2 DIABETES MELLITUS WITHOUT COMPLICATIONS Status: Chronic Priority: Low Current Visit: Yes Qualifiers: Diabetes mellitus long term acute care registered nurse insulin use: without longterm use Diabetes mellitus complication status: without complication Qualified Code(s): E11.9 - Type 2 diabetes mellitus without complications Problem List Initiated/Reviewed/Updated: Yes Orders Last 24hrs: Active Orders 24 hr Category Date Time Status Ambulate [RC] QID Care 06/08/20 01:55 Active Cardiac Monitoring [RC] .As Directed Care 06/07/20 18:53 Active Cardiac Monitoring [RC] CONTINUOUS Care 06/08/20 01:55 Active Intake and Output [RC] QSHIFT Care 06/08/20 01:55 Active Notify Provider Vital Signs [RC] ASDIRECTED Care 06/08/20 01:55 Active Oxygen Therapy Adult [Oxygen Therapy, ED] [RC] Care 06/07/20 20:12 Active ASDIRECTED Oxygen Therapy [RC] PRN Care 06/08/20 01:55 Active Pulse Oximetry [RC] PRN Care 06/08/20 01:55 Active RT Aerosol Therapy [RC] ASDIRECTED Care 06/08/20 01:55 Active RT Post Treatment Assessment [RC] Click to Edit Care 06/08/20 01:55 Active Up ad [place] [RC] ASDIRECTED Care 06/08/20 01:55 Active VTE/DVT Education [RC] Per Unit Routine Care 06/08/20 01:55 Active Vital Signs [RC] Q4H Care 06/08/20 01:55 Active Consistent Carbohydrate Diet [DIET] Diet 06/08/20 Breakfast Active Chest 2V [CR] Stat Exams 06/07/20 19:38 Taken BASIC METABOLIC PANEL,BMP [CHEM] AM Lab 06/08/20 05:11 Ordered CBC WITH AUTO DIFF [HEME] AM Lab 06/08/20 05:11 Ordered TROPONIN I [CHEM] AM Lab 06/08/20 05:11 Ordered Acetaminophen [TylenoL] Med 06/08/20 01:55 Active 650 mg PO Q4H PRN Albuterol [Proventil Neb Soln] Med 06/08/20 01:55 Active 2.5 mg NEB Q4H PRN Albuterol/Ipratropium [Combivent Respimat] Med 06/08/20 01:55 Active 0 gm INH Q4H PRN Aspirin Med 06/08/20 09:00 Active 81 mg PO DAILY Cetirizine [ZyrTEC] Med 06/08/20 01:55 Active 10 mg PO BEDTIME PRN Docusate Sodium [Colace] Med 06/08/20 01:55 Active 100 mg PO BID PRN LORazepam [Ativan] Med 06/08/20 01:55 Active 1 mg IV Q6H PRN Levothyroxine Med 06/08/20 07:30 Active 112 mcg PO ACBREAKFAST Lovastatin [Mevacor] Med 06/08/20 09:00 Active 10 mg PO DAILY Morphine Med 06/08/20 01:55 Active 2 mg IVPUSH Q2H PRN Nitroglycerin [Nitrostat] Med 06/07/20 20:45 Active 0.4 mg SL Q5M PRN Ondansetron [Zofran ODT] Med 06/08/20 01:55 Active 4 mg PO Q6H PRN Ondansetron [Zofran] Med 06/08/20 01:55 Active 4 mg IV Q4H PRN Sodium Chloride 0.9% [Normal Saline] 80 ml Med 06/07/20 22:15 Active IV ASDIRECTED bisacodyL [Dulcolax] Med 06/08/20 01:55 Active 5 mg PO DAILY PRN glipiZIDE [Glucotrol XL] Med 06/08/20 09:00 Pending 2.5 mg PO BID lisinopriL [Prinivil] Med 06/08/20 09:00 Active 10 mg PO DAILY oxyCODONE Med 06/08/20 01:55 Active 5 mg PO Q4H PRN Resuscitation Status Routine Resus Stat 06/08/20 01:20 Ordered EKG 12 Lead [EK] Routine Ther 06/07/20 19:20 Stop Req EKG 12 Lead [EK] Routine Ther 06/07/20 20:12 Stop Req Medication Orders Acetaminophen (Acetaminophen 325 Mg Tab) 650 mg PO Q4H PRN PRN Reason: Pain (Mild 1-3)/fever Albuterol (Albuterol 0.083% 2.5 Mg/3 Ml Neb Soln) 2.5 mg NEB Q4H PRN PRN Reason: Shortness Of Breath/wheezing Albuterol/Ipratropium (Albuterol/Ipratropium 4 Gm Inhalation [place]) 0 gm INH Q4H PRN PRN Reason: Shortness of Breath Aspirin (Aspirin 81 Mg Tab.Chew) 81 mg PO DAILY JEYSON Bisacodyl (Bisacodyl 5 Mg Tab) 5 mg PO DAILY PRN PRN Reason: Constipation Cetirizine HCl (Cetirizine 10 Mg Tab) 10 mg PO BEDTIME PRN PRN Reason: Allergies Docusate Sodium (Docusate Sodium 100 Mg Cap) 100 mg PO BID PRN PRN Reason: Constipation Glipizide (Glipizide 5 Mg Tab.Er) 2.5 mg PO BID [facility] Sodium Chloride (Normal Saline) 80 mls @ 3 mls/sec IV ASDIRECTED JEYSON Last Admin: 06/07/20 22:22 Dose: 3 mls/sec Documented by: MARCIO Levothyroxine Sodium (Levothyroxine 112 Mcg Tab) 112 mcg PO ACBREAKFAST [facility] Lisinopril (Lisinopril 10 Mg Tab) 10 mg PO DAILY [facility] Lorazepam (Lorazepam 2 Mg/Ml Sdv) 1 mg IV Q6H PRN PRN Reason: Nausea/Vomiting Lovastatin (Lovastatin 20 Mg Tab) 10 mg PO DAILY [facility] Morphine Sulfate (Morphine 2 Mg/Ml Syringe) 2 mg IVPUSH Q2H PRN PRN Reason: Pain (severe 7-10) Nitroglycerin (Nitroglycerin 0.4 Mg Tab.Sl) 0.4 mg SL Q5M PRN PRN Reason: Chest Pain Last Admin: 06/07/20 21:20 Dose: 0.4 mg Documented by: Admin: 06/07/20 20:51 Dose: 0.4 mg Documented by: PANDA Ondansetron HCl (Ondansetron 4 Mg Tab.Dis) 4 mg PO Q6H PRN PRN Reason: Nausea able to take PO Ondansetron HCl (Ondansetron 4 Mg/2 Ml Sdv) 4 mg IV Q4H PRN PRN Reason: Nausea/Vomiting Oxycodone HCl (Oxycodone 5 Mg Tab) 5 mg PO Q4H PRN PRN Reason: Pain (moderate 4-6) Assessment/Plan Comment:: ASSESSMENT AND PLAN: UPPER BACK PAIN AND DIABETES TYPE 2 Back pain upper with intermittent nausea. CT of chest, Chest xray are negative. Labs within normal range except blood glucose elevated. Mr. Baldwin ER work up didn't reveal any life threatening events, and at this time Mr. Baldwin reports all symptoms have resolved and he is feeling great. Advise admission to hospital to monitor overnight. He agrees with plan of care. -admit observation status to ICU Med-Surg overflow. -IV Normal Saline at 125 ml/hr for one liter then saline lock. -IV Morphine 2 mg every 2 hours prn pain -Percocet 5mg po every 4 hours prn pain -Telemetry -pulse oximetry -am labs repeat Troponin, CBC, BMP Diabetes Type 2 -reports follow low sugar diet and takes his medications as prescribed. has been Diabetic for over 30 years. -Continue oral medications -consistent carb diet -Blood glucose testing before meals and at bedtime MAINTENANCE ISSUES -DVT prophylaxis; ambulate -GI prophylaxis; not indicated -[place] catheter; not indicated -Nutrition -consistent carb diet -Nicotine dependence; not required CODE STATUS-FULL ADMISSION STATUS-this patient will be admitted to observation status, expect no more than a one night hospital stay for evaluation and management of problems as outlined above. DISPOSITION-anticipate discharge to home after the hospital stay. PRIMARY CARE PROVIDER- Allison Maynard, [facility] HOSPITALIST- Dr. Olmedo - Mortality Measure Prognosis:: Good
[2020-06-08] MEDS ORDERED: LEVOTHYROXINE 112 MCG PO SCH (07:30)
--- NOTE | 2020-06-08 08:57 | CR ---
CHEST: 2 view CLINICAL HISTORY:Back pain, bradycardia COMPARISON:None FINDINGS: The heart size, pulmonary vascularity and hilar structures are normal. No infiltrate effusion or pneumothorax is seen. IMPRESSION: No acute cardiopulmonary process.
[2020-06-08] MEDS ORDERED: glipiZIDE 5 MG Tab.ER PO SCH (09:00)
[2020-06-08] MEDS ORDERED: LOVASTATIN 10 MG PO SCH (09:00)
[2020-06-08] MEDS ORDERED: Aspirin 81 MG EC **PTOM PO SCH (09:00)
[2020-06-08] MEDS ORDERED: Aspirin 81 MG Tab.Chew PO SCH (09:00)
[2020-06-08] MEDS ORDERED: GLIPIZIDE 5 MG PO SCH (09:00)
[2020-06-08] MEDS ORDERED: LISINOPRIL 10 MG PO SCH (09:00)
--- NOTE | 2020-06-08 10:21 | PCM.DCSUM1 ---
Discharge Summary - Hospital Course Brief History: Mr. Baldwin is an 79-year-old gentleman who was admitted through the emergency department with mid back and epigastric abdominal pain associated with nausea. - Discharge Data Discharge Date: 06/08/20 Discharge Disposition: Home, Self-Care 01 Condition: Good - Referral to Home Health Primary Care Physician: Suri Maynard PA-C - Discharge Diagnosis/Problem(s) (1) Upper back pain SNOMED Code(s): 359470223 ICD Code: M54.9 - DORSALGIA, UNSPECIFIED Status: Acute Priority: High Current Visit: Yes (2) Nausea SNOMED Code(s): 743990121 ICD Code: R11.0 - NAUSEA Status: Acute Current Visit: Yes (3) Type 2 diabetes mellitus SNOMED Code(s): 17263996 ICD Code: E11.9 - TYPE 2 DIABETES MELLITUS WITHOUT COMPLICATIONS Status: Chronic Priority: Low Current Visit: Yes 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 Baldwin is an 79-year-old gentleman who was admitted to observation status through the emergency department with epigastric pain mid back pain and nausea. He was feeling well through the day yesterday in the late afternoon developed pain in his mid to upper back associated with some nausea and then epigastric pain. He did take some antacids at home without significant relief and then presented to the emergency department because of his symptoms. Chest x-ray was unremarkable and EKG showed no acute ST segment changes CT scan of the chest was obtained which did document some coronary artery atherosclerosis but no other significant abnormalities. Troponin level was within normal range. He was admitted to the hospital and serial troponin levels were obtained that remain normal. He denies any other recent symptoms of chest pain or pressure and does remain fairly active walking on almost a daily basis. Diabetes was monitored through his hospital stay and he was treated with sliding scale Humalog. Pain resolved while in the emergency department and did not recur during his hospital stay. On the morning of discharge she tolerated a regular meal without difficulty and was up and moving about without significant symptoms. He will be placed on Protonix twice daily for 2 weeks and then once daily thereafter. Outpatient exercise Myoview scan study will be scheduled as well as a follow-up appointment with his primary care provider. Activity will be as tolerated and he will resume his usual diabetic diet. - Patient Instructions Diet: Diabetic Diet Activity: As Tolerated Other/Special Instructions: Please schedule follow-up appointment with primary care provider within 1 week. Please arrange for exercise Myoview study prior to seeing primary care. - Discharge Plan *PRESCRIPTION DRUG MONITORING PROGRAM REVIEWED*: Not Applicable *COPY OF PRESCRIPTION DRUG MONITORING REPORT IN PATIENT [place]: Not Applicable Prescriptions/Med Rec: Pantoprazole Sodium [Protonix] 40 mg PO BID #60 tablet. Home Medications: Home Meds Aspirin 81 mg PO DAILY 01/15/18 [History] Cetirizine HCl [Zyrtec] 10 mg PO BEDTIME PRN 01/15/18 [History] Lovastatin [Mevacor] 10 mg PO DAILY 01/15/18 [History] Multivitamin with Minerals [Multiple Vitamin] 1 tab PO DAILY 01/15/18 [History] lisinopriL [Prinivil] 10 mg PO DAILY 01/15/18 [History] metFORMIN HCl [Metformin HCl] 1,000 mg PO BID 01/15/18 [History] Albuterol/Ipratropium [Combivent Respimat] 1 puff IH Q4H PRN 04/06/20 [History] Levothyroxine Sodium [Euthyrox] 112 mcg PO DAILY 04/06/20 [History] Pantoprazole Sodium [Protonix] 40 mg PO BID #60 tablet. 06/08/20 [Rx] glipiZIDE [Glucotrol] 2.5 mg PO BID 06/08/20 [History] Referrals: Suri Maynard PA-C [Primary Care Provider] - 06/15/20 11:00 am (Please arrive 15 minutes early to register for your appointment.) - Discharge Summary/Plan Comment DC Time >30 min.: No - Patient Data Vitals - Most Recent: Last Vital Signs Temp 98.2 F 06/08/20 10:00 Pulse 102 H 06/08/20 10:00 Resp 12 06/08/20 10:00 BP 124/67 06/08/20 10:00 Pulse Ox 94 L 06/08/20 10:00 Weight - Most Recent: 361 lb 8.929 oz I&O - Last 24 hours: Intake & Output 06/07/20 06/08/20 06/08/20 22:59 06:59 14:59 Intake Total 400 Output Total 450 575 Balance -450 -175 Lab Results - Last 24 hrs: Laboratory Results - last 24 hr 06/07/20 06/07/20 06/07/20 Range/Units 19:35 19:35 19:35 WBC 6.5 (4.5-11.0) K/uL RBC 4.62 (4.30-5.90) M/uL Hgb 13.1 (12.0-15.0) g/dL Hct 40.7 (40.0-54.0) % MCV 88 (80-98) fL MCH 28 (27-31) pg MCHC 32 (32-36) % Plt Count 268 (150-400) K/uL Neut % (Auto) (36-66) % Lymph % (Auto) (24-44) % [place] % (Auto) (2-6) % Eos % (Auto) (2-4) % Baso % (Auto) (0-1) % Sodium 142 (140-148) mmol/L Potassium 4.4 (3.6-5.2) mmol/L Chloride 103 (100-108) mmol/L Carbon Dioxide 27 (21-32) mmol/L Anion Gap 11.9 (5.0-14.0) mmol/L BUN 17 (7-18) mg/dL Creatinine 1.0 (0.8-1.3) mg/dL Est Cr Clr Drug Dosing 56.05 mL/min Estimated GFR (MDRD) > 60 (>60) Glucose 160 H (74-106) mg/dL Calcium 9.4 (8.5-10.1) mg/dL Total Bilirubin (0.2-1.0) mg/dL Direct Bilirubin (0.0-0.2) mg/dL Indirect Bilirubin AST (15-37) U/L ALT (12-78) U/L Alkaline Phosphatase (46-116) U/L Troponin I 0.027 (0.000-0.056) ng/mL C-Reactive Protein (0.0-0.3) mg/dL Total Protein (6.4-8.2) g/dL Albumin (3.4-5.0) g/dL Globulin (2.3-3.5) g/dL Albumin/Globulin Ratio (1.2-2.2) Lipase (73-393) U/L TSH, Ultra Sensitive (0.358-3.740) uIU/mL Urine Color (YELLOW) Urine Appearance (CLEAR) Urine pH (5.0-8.0) Ur Specific [place] (1.008-1.030) Urine Protein (NEGATIVE) mg/dL Urine Glucose (UA) (NEGATIVE) mg/dL Urine Ketones (NEGATIVE) mg/dL Urine Occult Blood (NEGATIVE) Urine Nitrite (NEGATIVE) Urine Bilirubin (NEGATIVE) Urine Urobilinogen (0.2-1.0) EU/dL Ur Leukocyte Esterase (NEGATIVE) Urine RBC (0-5) Urine WBC (0-5) Ur Epithelial Cells Amorphous Sediment Urine Bacteria Urine Mucus 06/07/20 06/07/20 06/07/20 Range/Units 19:35 19:35 21:26 WBC (4.5-11.0) K/uL RBC (4.30-5.90) M/uL Hgb (12.0-15.0) g/dL Hct (40.0-54.0) % MCV (80-98) fL MCH (27-31) pg MCHC (32-36) % Plt Count (150-400) K/uL Neut % (Auto) (36-66) % Lymph % (Auto) (24-44) % [place] % (Auto) (2-6) % Eos % (Auto) (2-4) % Baso % (Auto) (0-1) % Sodium (140-148) mmol/L Potassium (3.6-5.2) mmol/L Chloride (100-108) mmol/L Carbon Dioxide (21-32) mmol/L Anion Gap (5.0-14.0) mmol/L BUN (7-18) mg/dL Creatinine (0.8-1.3) mg/dL Est Cr Clr Drug Dosing mL/min Estimated GFR (MDRD) (>60) Glucose (74-106) mg/dL Calcium (8.5-10.1) mg/dL Total Bilirubin (0.2-1.0) mg/dL Direct Bilirubin (0.0-0.2) mg/dL Indirect Bilirubin AST (15-37) U/L ALT (12-78) U/L Alkaline Phosphatase (46-116) U/L Troponin I 0.027 (0.000-0.056) ng/mL C-Reactive Protein 0.69 H (0.0-0.3) mg/dL Total Protein (6.4-8.2) g/dL Albumin (3.4-5.0) g/dL Globulin (2.3-3.5) g/dL Albumin/Globulin Ratio (1.2-2.2) Lipase 69 L (73-393) U/L TSH, Ultra Sensitive (0.358-3.740) uIU/mL Urine Color (YELLOW) Urine Appearance (CLEAR) Urine pH (5.0-8.0) Ur Specific [place] (1.008-1.030) Urine Protein (NEGATIVE) mg/dL Urine Glucose (UA) (NEGATIVE) mg/dL Urine Ketones (NEGATIVE) mg/dL Urine Occult Blood (NEGATIVE) Urine Nitrite (NEGATIVE) Urine Bilirubin (NEGATIVE) Urine Urobilinogen (0.2-1.0) EU/dL Ur Leukocyte Esterase (NEGATIVE) Urine RBC (0-5) Urine WBC (0-5) Ur Epithelial Cells Amorphous Sediment Urine Bacteria Urine Mucus 06/07/20 06/08/20 06/08/20 Range/Units 23:30 00:35 01:03 WBC (4.5-11.0) K/uL RBC (4.30-5.90) M/uL Hgb (12.0-15.0) g/dL Hct (40.0-54.0) % MCV (80-98) fL MCH (27-31) pg MCHC (32-36) % Plt Count (150-400) K/uL Neut % (Auto) (36-66) % Lymph % (Auto) (24-44) % [place] % (Auto) (2-6) % Eos % (Auto) (2-4) % Baso % (Auto) (0-1) % Sodium (140-148) mmol/L Potassium (3.6-5.2) mmol/L Chloride (100-108) mmol/L Carbon Dioxide (21-32) mmol/L Anion Gap (5.0-14.0) mmol/L BUN (7-18) mg/dL Creatinine (0.8-1.3) mg/dL Est Cr Clr Drug Dosing mL/min Estimated GFR (MDRD) (>60) Glucose (74-106) mg/dL Calcium (8.5-10.1) mg/dL Total Bilirubin 0.2 (0.2-1.0) mg/dL Direct Bilirubin 0.05 (0.0-0.2) mg/dL Indirect Bilirubin TNP AST 21 (15-37) U/L ALT 27 (12-78) U/L Alkaline Phosphatase 105 (46-116) U/L Troponin I (0.000-0.056) ng/mL C-Reactive Protein (0.0-0.3) mg/dL Total Protein 6.7 (6.4-8.2) g/dL Albumin 3.6 (3.4-5.0) g/dL Globulin 3.1 (2.3-3.5) g/dL Albumin/Globulin Ratio 1.2 (1.2-2.2) Lipase (73-393) U/L TSH, Ultra Sensitive 1.113 (0.358-3.740) uIU/mL Urine Color Yellow (YELLOW) Urine Appearance Clear (CLEAR) Urine pH 6.0 (5.0-8.0) Ur Specific [place] 1.015 (1.008-1.030) Urine Protein Negative (NEGATIVE) mg/dL Urine Glucose (UA) 500 H (NEGATIVE) mg/dL Urine Ketones Negative (NEGATIVE) mg/dL Urine Occult Blood Trace-intact H (NEGATIVE) Urine Nitrite Negative (NEGATIVE) Urine Bilirubin Negative (NEGATIVE) Urine Urobilinogen 1.0 (0.2-1.0) EU/dL Ur Leukocyte Esterase Negative (NEGATIVE) Urine RBC 0-5 (0-5) Urine WBC 0-5 (0-5) Ur Epithelial Cells Rare Amorphous Sediment Not seen Urine Bacteria Few Urine Mucus Not seen 06/08/20 06/08/20 Range/Units 04:15 04:15 WBC 9.8 (4.5-11.0) K/uL RBC 4.40 (4.30-5.90) M/uL Hgb 12.8 (12.0-15.0) g/dL Hct 38.5 L (40.0-54.0) % MCV 88 (80-98) fL MCH 29 (27-31) pg MCHC 33 (32-36) % Plt Count 246 (150-400) K/uL Neut % (Auto) 70 H (36-66) % Lymph % (Auto) 19 L (24-44) % [place] % (Auto) 10 H (2-6) % Eos % (Auto) 0 L (2-4) % Baso % (Auto) 0 (0-1) % Sodium 142 (140-148) mmol/L Potassium 4.1 (3.6-5.2) mmol/L Chloride 104 (100-108) mmol/L Carbon Dioxide 28 (21-32) mmol/L Anion Gap 10.2 (5.0-14.0) mmol/L BUN 17 (7-18) mg/dL Creatinine 0.9 (0.8-1.3) mg/dL Est Cr Clr Drug Dosing 64.37 mL/min Estimated GFR (MDRD) > 60 (>60) Glucose 131 H (74-106) mg/dL Calcium 9.1 (8.5-10.1) mg/dL Total Bilirubin (0.2-1.0) mg/dL Direct Bilirubin (0.0-0.2) mg/dL Indirect Bilirubin AST (15-37) U/L ALT (12-78) U/L Alkaline Phosphatase (46-116) U/L Troponin I 0.026 (0.000-0.056) ng/mL C-Reactive Protein (0.0-0.3) mg/dL Total Protein (6.4-8.2) g/dL Albumin (3.4-5.0) g/dL Globulin (2.3-3.5) g/dL Albumin/Globulin Ratio (1.2-2.2) Lipase (73-393) U/L TSH, Ultra Sensitive (0.358-3.740) uIU/mL Urine Color (YELLOW) Urine Appearance (CLEAR) Urine pH (5.0-8.0) Ur Specific [place] (1.008-1.030) Urine Protein (NEGATIVE) mg/dL Urine Glucose (UA) (NEGATIVE) mg/dL Urine Ketones (NEGATIVE) mg/dL Urine Occult Blood (NEGATIVE) Urine Nitrite (NEGATIVE) Urine Bilirubin (NEGATIVE) Urine Urobilinogen (0.2-1.0) EU/dL Ur Leukocyte Esterase (NEGATIVE) Urine RBC (0-5) Urine WBC (0-5) Ur Epithelial Cells Amorphous Sediment Urine Bacteria Urine Mucus Med Orders - Current: Current Medications Acetaminophen (Acetaminophen 325 Mg Tab) 650 mg PO Q4H PRN PRN Reason: Pain (Mild 1-3)/fever Albuterol (Albuterol 0.083% 2.5 Mg/3 Ml Neb Soln) 2.5 mg NEB Q4H PRN PRN Reason: Shortness Of Breath/wheezing Albuterol/Ipratropium (Albuterol/Ipratropium 4 Gm Inhalation [place]) 0 gm INH Q4H PRN PRN Reason: Shortness of Breath Aspirin (Aspirin 81 Mg Ec Ptom) 81 mg PO DAILY [facility] Last Admin: 06/08/20 08:11 Dose: 81 mg Documented by: Bisacodyl (Bisacodyl 5 Mg Tab) 5 mg PO DAILY PRN PRN Reason: Constipation Cetirizine HCl (Cetirizine 10 Mg Tab) 10 mg PO BEDTIME PRN PRN Reason: Allergies Docusate Sodium (Docusate Sodium 100 Mg Cap) 100 mg PO BID PRN PRN Reason: Constipation Glipizide (Glipizide 5 Mg Ptom) 2.5 mg PO BID [facility] Last Admin: 06/08/20 08:12 Dose: 2.5 mg Documented by: Levothyroxine Sodium (Levothyroxine 112 Mcg Ptom) 112 mcg PO ACBREAKFAST [facility] Last Admin: 06/08/20 08:10 Dose: 112 mcg Documented by: Lisinopril (Lisinopril 10 Mg Ptom) 10 mg PO DAILY [facility] Last Admin: 06/08/20 08:12 Dose: 10 mg Documented by: Lorazepam (Lorazepam 2 Mg/Ml Sdv) 1 mg IV Q6H PRN PRN Reason: Nausea/Vomiting Morphine Sulfate (Morphine 2 Mg/Ml Syringe) 2 mg IVPUSH Q2H PRN PRN Reason: Pain (severe 7-10) Nitroglycerin (Nitroglycerin 0.4 Mg Tab.Sl) 0.4 mg SL Q5M PRN PRN Reason: Chest Pain Last Admin: 06/07/20 21:20 Dose: 0.4 mg Documented by: Ondansetron HCl (Ondansetron 4 Mg Tab.Dis) 4 mg PO Q6H PRN PRN Reason: Nausea able to take PO Ondansetron HCl (Ondansetron 4 Mg/2 Ml Sdv) 4 mg IV Q4H PRN PRN Reason: Nausea/Vomiting Oxycodone HCl (Oxycodone 5 Mg Tab) 5 mg PO Q4H PRN PRN Reason: Pain (moderate 4-6) Lovastatin 10mg (Ptom) 0 each PO DAILY [facility] Last Admin: 06/08/20 08:13 Dose: 1 each Documented by: Discontinued Medications Al Hydroxide/Mg Hydroxide 15 (ml/ Lidocaine HCl 15 ml) 0 ml PO ONETIME ONE Stop: 06/07/20 19:39 Last Admin: 06/07/20 19:50 Dose: 30 ml Documented by: Hydromorphone HCl (Hydromorphone 0.5 Mg/0.5 Ml Syringe) 0.5 mg IVPUSH ONETIME ONE Stop: 06/07/20 22:06 Last Admin: 06/07/20 22:10 Dose: 0.5 mg Documented by: Sodium Chloride (Normal Saline) 1,000 mls @ 150 mls/hr IV ASDIRECTED [facility] Last Admin: 06/07/20 20:13 Dose: 150 mls/hr Documented by: Sodium Chloride (Normal Saline) 80 mls @ 3 mls/sec IV ASDIRECTED [facility] Last Admin: 06/07/20 22:22 Dose: 3 mls/sec Documented by: Iopamidol (Iopamidol 612 Mg/Ml 100 Ml Bottle) 100 ml IV . DIRECTED [facility] Last Admin: 06/07/20 22:22 Dose: 100 ml Documented by: Ondansetron HCl (Ondansetron 4 Mg/2 Ml Sdv) 4 mg IV ONETIME ONE Stop: 06/07/20 21:05 Last Admin: 06/07/20 21:09 Dose: 4 mg Documented by: Simethicone (Simethicone 80 Mg Tab.Chew) 160 mg PO ONETIME ONE Stop: 06/07/20 19:59 Last Admin: 06/07/20 20:08 Dose: 160 mg Documented by: Sodium Chloride (Sodium Chloride 0.9% 10 Ml Syringe) 10 ml FLUSH ASDIRECTED PRN PRN Reason: Keep Vein Open Last Admin: 06/07/20 21:10 Dose: 10 ml Documented by: - Exam General: Reports: Alert, Oriented, Cooperative, No Acute Distress Lungs: Reports: Clear to Auscultation, Normal Respiratory Effort Cardiovascular: Reports: Regular Rate, Regular Rhythm, No Murmurs GI/Abdominal Exam: Soft, Non-Tender, No Organomegaly, No Distention Extremities: Non-Tender, No Pedal Edema
== END 2020-06-08 10:35 | disposition home or self-care (01) ==
LOC: JP.ED 18:49 → JP.ICU 06-08 01:18
PROVIDERS: ADMIT Hospitalist; ATTEND Hospitalist
DX: M54.6 Pain in thoracic spine (principal); E11.9 Type 2 diabetes mellitus without complications; R10.13 Epigastric pain; J98.11 Atelectasis; I77.4 Celiac artery compression syndrome; R11.0 Nausea; I25.10 Atherosclerotic heart disease of native coronary artery without angina pectoris; E03.9 Hypothyroidism, unspecified; E78.00 Pure hypercholesterolemia, unspecified; I10 Essential (primary) hypertension; Z86.16 Personal history of COVID-19; Z79.82 Long term (current) use of aspirin; Z79.84 Long term (current) use of oral hypoglycemic drugs; Z79.899 Other long term (current) drug therapy; Z79.890 Hormone replacement therapy; Z85.46 Personal history of malignant neoplasm of prostate; Z98.890 Other specified postprocedural states
CPT/HCPCS: 36415; 71046; 71260; 80048; 80076; 81001; 83690; 84443; 84484; 85025; 85027; 86140; 93005; 99284; A9270; J1170; J2405; J7030; Q9967

== ENCOUNTER 2020-06-09 17:12 | Inpatient (IN) | payer MEDICARE ==
[2020-06-09] MEDS ORDERED: Sodium Chloride 0.9% 10 ML Syringe FLUSH PRN (17:17)
[2020-06-09] MEDS ORDERED: HYDROmorphone 0.5 MG/0.5 ML Syringe IVPUSH ONE (17:19)
[2020-06-09] MEDS ORDERED: Ondansetron 4 MG/2 ML SDV IV ONE (17:24)
--- NOTE | 2020-06-09 17:24 | EDM.PDOC ---
ED HPI GENERAL MEDICAL PROBLEM - General Chief Complaint: Abdominal Pain Stated Complaint: FROM CLINIC, SAID THEY CALLED WITH REPORT Time Seen by Provider: 06/09/20 17:20 Source of Information: Reports: Patient, Old Records, Provider History Limitations: Reports: No Limitations - History of Present Illness INITIAL COMMENTS - FREE TEXT/NARRATIVE: 79 yo male was seen here Sunday evening for pain between his shoulder blades and also later developed some epigastric pain. His CXR, CT chest, and lab work work including EKG x 2 didn't reveal any definite pathology. He was observed in the hospital overnight and his sx's completely resolved. He was asked to f/u in the clinic today and there they noted that he was tachycardic, but not febrile. His pain was now epigastric and RUQ and an US showed thickened GB wall with fluid. Patient reports bloating today with nausea and vomiting. Rocephin 1 gm IM was given in the clinic. He tells me now that his pain was not completely gone when he went home and has moved more to the RUQ since then. He has not had a fever. He is not aware of his heart beating fast. Thinks he noticed constipation on after getting home from the hospital that responded to a second dose of a laxative/stool softener. Onset: Gradual Onset Date: 06/07/20 Duration: Day(s):, Getting Worse Location: Reports: Abdomen Quality: Reports: Ache Severity: Moderate Improves with: Reports: Rest Worsens with: Reports: Movement Context: Reports: Other (See HPI) Associated Symptoms: Reports: Nausea/Vomiting. 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 below) (Rocephin IM) Right Upper Abdomen Pain Score (Numeric/FACES): 4 - Related Data Allergies Allergy/AdvReac Type Severity Reaction Status Date / Time No Known Allergies Allergy Verified 06/09/20 17:42 Home Meds: Home Meds Aspirin 81 mg PO DAILY 01/15/18 [History] Cetirizine HCl [Zyrtec] 10 mg PO BEDTIME PRN 01/15/18 [History] Lovastatin [Mevacor] 10 mg PO DAILY 01/15/18 [History] Multivitamin with Minerals [Multiple Vitamin] 1 tab PO DAILY 01/15/18 [History] lisinopriL [Prinivil] 10 mg PO DAILY 01/15/18 [History] metFORMIN HCl [Metformin HCl] 1,000 mg PO BID 01/15/18 [History] Albuterol/Ipratropium [Combivent Respimat] 1 puff IH Q4H PRN 04/06/20 [History] Levothyroxine Sodium [Euthyrox] 112 mcg PO DAILY 04/06/20 [History] Pantoprazole Sodium [Protonix] 40 mg PO BID #60 tablet. 06/08/20 [Rx] glipiZIDE [Glucotrol] 2.5 mg PO BID 06/08/20 [History] Past Medical History HEENT History: Reports: Cataract, Impaired Vision, Other (See Below) Other HEENT History: wears glasses Cardiovascular History: Reports: High Cholesterol, Hypertension Gastrointestinal History: Reports: GERD Genitourinary History: Reports: Other (See Below) Other Genitourinary History: prostate CA Musculoskeletal History: Reports: Fracture Neurological History: Reports: Headaches, Chronic Endocrine/Metabolic History: Reports: Diabetes, Type II, Hypothyroidism Oncologic (Cancer) History: Reports: Prostate Dermatologic History: Reports: Eczema - Infectious Disease History Infectious Disease History: Reports: Chicken Pox, Measles, Mumps, Novel Coronavirus, Shingles - Past Surgical History HEENT Surgical History: Reports: Cataract Surgery, Tonsillectomy GI Surgical History: Reports: Colonoscopy Male Surgical History: Reports: Other (See Below) Other Male Surgeries/Procedures: enlarged prostate - "they froze it" Musculoskeletal Surgical History: Reports: Arthroscopic Knee Social & Family History - Family History Family Medical History: No Pertinent Family History - Caffeine Use Caffeine Use: Reports: Coffee - Living Situation & Occupation Living situation: Reports: Occupation: Retired (lives with 3 blocks from the hospital.) ED ROS GENERAL - Review of Systems Review Of Systems: See Below Constitutional: Reports: No Symptoms HEENT: Reports: No Symptoms Respiratory: Reports: No Symptoms Cardiovascular: Reports: No Symptoms GI/Abdominal: Reports: Abdominal Pain, Constipation, Distension (feels a little bloated), Nausea, Vomiting. Denies: Black Stool, Bloody Stool, Diarrhea, Flatus, Hematemesis, Hematochezia, Melena Musculoskeletal: Reports: No Symptoms Skin: Reports: No Symptoms Neurological: Reports: No Symptoms Psychiatric: Reports: No Symptoms ED EXAM, GI/ABD - Physical Exam Exam: See Below Exam Limited By: No Limitations General Appearance: Alert, WD/WN, No Apparent Distress Eyes: Bilateral: Normal Appearance Ears: Normal External Exam, Normal Canal, Hearing Grossly Normal Nose: Normal Inspection, No Blood Throat/Mouth: Normal Inspection, Normal Lips, Normal Oropharynx, Normal Voice, No Airway Compromise Head: Atraumatic, Normocephalic Neck: Normal Inspection Respiratory/Chest: No Respiratory Distress, Lungs Clear, Normal Breath Sounds, No Accessory Muscle Use Cardiovascular: Regular Rate, Rhythm, No Edema, Tachycardia GI/Abdominal Exam: Soft, No Distention, Tender (RUQ), Other (increased pain with coughing). No: Non-Tender, Distended, Rigid, Rebound Back Exam: Normal Inspection. No: CVA Tenderness (R), CVA Tenderness (L) Extremities: Normal Inspection, Normal Range of Motion, Non-Tender, No Pedal Edema Neurological: Alert, Oriented, CN II-XII Intact, Normal Cognition, No Motor/Sensory Deficits Psychiatric: Normal Affect, Normal Mood Skin Exam: Warm, Dry, Intact, Normal Color, No Rash Course - Vital Signs Text/Narrative:: Dr. Abbott and Raciel Otto both aware @ 1750h Last Recorded V/S: Last Vital Signs Temp 36.8 C 06/09/20 17:41 Pulse 119 H 06/09/20 17:41 Resp 16 06/09/20 17:41 BP 155/80 H 06/09/20 17:41 Pulse Ox 97 06/09/20 17:41 - Orders/Labs/Meds Orders: Active Orders 24 hr Category Date Time Status COMPREHENSIVE METABOLIC PN,CMP [CHEM] Stat Lab 06/09/20 17:28 Received CRP [C-REACTIVE PROTEIN] [CHEM] Stat Lab 06/09/20 17:28 Received LACTIC ACID [CHEM] Stat Lab 06/09/20 17:28 Received LIPASE [CHEM] Stat Lab 06/09/20 17:28 Received Sodium Chloride 0.9% [Saline Flush] Med 06/09/20 17:17 Active 10 ml FLUSH ASDIRECTED PRN Saline Lock Insert [OM.PC] Routine Oth 06/09/20 17:17 Ordered Medication Orders Sodium Chloride (Sodium Chloride 0.9% 10 Ml Syringe) 10 ml FLUSH ASDIRECTED PRN PRN Reason: Keep Vein Open Labs: Laboratory Tests 06/09/20 Range/Units 17:28 WBC 17.4 H (4.5-11.0) K/uL RBC 5.09 (4.30-5.90) M/uL Hgb 14.3 (12.0-15.0) g/dL Hct 44.1 (40.0-54.0) % MCV 87 (80-98) fL MCH 28 (27-31) pg MCHC 32 (32-36) % Plt Count 317 (150-400) K/uL Meds: Medications Generic Name Dose Route Start Last Admin Trade Name Freq PRN Reason Stop Dose Admin Sodium Chloride 10 ml 06/09/20 17:17 Sodium Chloride 0.9% 10 Ml Syringe FLUSH ASDIRECTED PRN Keep Vein Open Discontinued Medications Generic Name Dose Route Start Last Admin Trade Name Freq PRN Reason Stop Dose Admin Hydromorphone HCl 0.5 mg 06/09/20 17:19 Hydromorphone 0.5 Mg/0.5 Ml Syringe IVPUSH 06/09/20 17:20 ONETIME ONE Ondansetron HCl 4 mg 06/09/20 17:24 Ondansetron 4 Mg/2 Ml Sdv IV 06/09/20 17:25 ONETIME ONE Departure - Departure Time of Disposition: 18:00 Disposition: Admitted As Inpatient 64 Condition: Fair Clinical Impression: Acute cholecystitis - Discharge Information *PRESCRIPTION DRUG MONITORING PROGRAM REVIEWED*: Not Applicable *COPY OF PRESCRIPTION DRUG MONITORING REPORT IN PATIENT [place]: Not Applicable Referrals: Suri Maynard PA-C [Primary Care Provider] - Forms: ED Department Discharge Sepsis Event Note (ED) - Focused Exam Vital Signs: Vital Signs Temp Pulse Resp BP Pulse Ox 06/09/20 17:41 36.8 C 119 H 16 155/80 H 97 06/09/20 17:28 36.8 C 119 H 16 155/80 H 97 - My Orders Last 24 Hours: My Active Orders 06/09/20 17:17 Sodium Chloride 0.9% [Saline Flush] 10 ml FLUSH ASDIRECTED PRN Saline Lock Insert [OM.PC] Routine 06/09/20 17:28 COMPREHENSIVE METABOLIC PN,CMP [CHEM] Stat CRP [C-REACTIVE PROTEIN] [CHEM] Stat LACTIC ACID [CHEM] Stat LIPASE [CHEM] Stat - Assessment/Plan Last 24 Hours: My Active Orders 06/09/20 17:17 Sodium Chloride 0.9% [Saline Flush] 10 ml FLUSH ASDIRECTED PRN Saline Lock Insert [OM.PC] Routine 06/09/20 17:28 COMPREHENSIVE METABOLIC PN,CMP [CHEM] Stat CRP [C-REACTIVE PROTEIN] [CHEM] Stat LACTIC ACID [CHEM] Stat LIPASE [CHEM] Stat
[2020-06-09] MEDS ORDERED: metroNIDAZOLE/Normal Saline 500 MG in Premix Bag 1 BAG IV ONE (17:52)
[2020-06-09] MEDS ORDERED: Acetaminophen 325 MG Tab PO PRN (19:19)
[2020-06-09] MEDS ORDERED: Docusate Sodium 100 MG Cap PO PRN (19:19)
[2020-06-09] MEDS ORDERED: Bisacodyl 5 MG Tab PO PRN (19:19)
[2020-06-09] MEDS ORDERED: Ondansetron 4 MG Tab.DIS PO PRN (19:19)
[2020-06-09] MEDS ORDERED: Sodium Chloride 0.9% 1,000 ML IV SCH (19:19)
[2020-06-09] MEDS ORDERED: Pantoprazole 40 MG Vial IV SCH (19:19)
[2020-06-09] MEDS ORDERED: Albuterol 0.083% 2.5 MG/3 ML Neb Soln NEB PRN (19:19)
--- NOTE | 2020-06-09 19:45 | PCM.HP.2 ---
H&P History of Present Illness - General Date of Service: 06/09/20 Admit Problem/Dx: Admission Diagnosis/Problem Admission Diagnosis/Problem Acute cholecystitis Source of Information: Patient, Provider, RN History Limitations: Reports: No Limitations - History of Present Illness Initial Comments - Free Text/Narative: chief complaint: acute cholecystitis 79 yo male was seen here Sunday evening for pain between his shoulder blades and also later developed some epigastric pain. His CXR, CT chest, and lab work work including EKG x 2 didn't reveal any definite pathology. He was observed in the hospital overnight and his sx's completely resolved. He was asked to f/u in the clinic today and there they noted that he was tachycardic, but not febrile. His pain was now epigastric and RUQ and an US showed thickened GB wall with fluid. Patient reports bloating today with nausea and vomiting. Rocephin 1 gm IM was given in the clinic. Onset of Symptoms: Reports: Gradual Symptom Onset Date: 06/05/20 Duration of Symptoms: Reports: Getting Worse, Waxing/Waning Location: Reports: Abdomen Quality: Reports: Same as Previous Episode Severity: Moderate (pain now resolved after IV Dilaudid) Improves with: Reports: Medication Worsens with: Reports: Eating Associated Symptoms: Reports: Loss of Appetite, Malaise, Nausea/Vomiting Right Upper Abdomen Pain Score (Numeric/FACES): 4 - Related Data Allergies/Adverse Reactions: Allergies Allergy/AdvReac Type Severity Reaction Status Date / Time No Known Allergies Allergy Verified 06/09/20 17:42 Home Medications: Home Meds Aspirin 81 mg PO DAILY 01/15/18 [History] Cetirizine HCl [Zyrtec] 10 mg PO BEDTIME PRN 01/15/18 [History] Lovastatin [Mevacor] 10 mg PO DAILY 01/15/18 [History] Multivitamin with Minerals [Multiple Vitamin] 1 tab PO DAILY 01/15/18 [History] lisinopriL [Prinivil] 10 mg PO DAILY 01/15/18 [History] metFORMIN HCl [Metformin HCl] 1,000 mg PO BID 01/15/18 [History] Albuterol/Ipratropium [Combivent Respimat] 1 puff IH Q4H PRN 04/06/20 [History] Levothyroxine Sodium [Euthyrox] 112 mcg PO DAILY 04/06/20 [History] Pantoprazole Sodium [Protonix] 40 mg PO BID #60 tablet. 06/08/20 [Rx] glipiZIDE [Glucotrol] 2.5 mg PO BID 06/08/20 [History] Past Medical History HEENT History: Reports: Cataract, Impaired Vision, Other (See Below) Other HEENT History: wears glasses Cardiovascular History: Reports: High Cholesterol, Hypertension Gastrointestinal History: Reports: GERD Genitourinary History: Reports: Other (See Below) Other Genitourinary History: prostate CA Musculoskeletal History: Reports: Fracture Neurological History: Reports: Headaches, Chronic Endocrine/Metabolic History: Reports: Diabetes, Type II, Hypothyroidism Oncologic (Cancer) History: Reports: Prostate Dermatologic History: Reports: Eczema - Infectious Disease History Infectious Disease History: Reports: Chicken Pox, Measles, Mumps, Novel Coronavirus, Shingles - Past Surgical History HEENT Surgical History: Reports: Cataract Surgery, Tonsillectomy GI Surgical History: Reports: Colonoscopy Male Surgical History: Reports: Other (See Below) Other Male Surgeries/Procedures: enlarged prostate - "they froze it" Musculoskeletal Surgical History: Reports: Arthroscopic Knee Social & Family History - Family History Family Medical History: No Pertinent Family History - Tobacco Use Tobacco Use Status *Q: Never Tobacco User Second Hand Smoke Exposure: No - Caffeine Use Caffeine Use: Reports: Coffee, Soda - Recreational Drug Use Recreational Drug Use: No - Living Situation & Occupation Living situation: Reports: Occupation: Retired (lives with Dodie at [facility] - [address] [place] [facility] [id number]) H&P Review of Systems - Review of Systems: Review Of Systems: See Below General: Reports: Malaise, Decreased Appetite, Other (abdominal pain) HEENT: Reports: No Symptoms Pulmonary: Reports: No Symptoms Cardiovascular: Reports: Other (feels heart is beating faster than normal) Gastrointestinal: Reports: Abdominal Pain, Anorexia, Constipation, Decreased Ap petite, Nausea, Vomiting Genitourinary: Reports: Incontinence (wears a pad for leaking) Musculoskeletal: Reports: Back Pain Skin: Reports: Rash (right ankle) Psychiatric: Reports: No Symptoms Neurological: Reports: No Symptoms Hematologic/Lymphatic: Reports: No Symptoms Immunologic: Reports: No Symptoms Exam - Exam Exam: See Below - Vital Signs Vital Signs: Last Vital Signs Temp 98.7 F 06/09/20 19:19 Pulse 103 H 06/09/20 19:19 Resp 16 06/09/20 19:19 BP 122/68 06/09/20 19:19 Pulse Ox 95 06/09/20 19:19 Weight: 73 lb 8 oz - Exam Quality Assessment: DVT Prophylaxis General: Alert, Oriented, Cooperative, Mild Distress HEENT: PERRLA, Hearing Intact, Mucosa Moist & [place], Nares Patent, Normal Nasal Septum, Posterior Pharynx Clear, Conjunctiva Clear, EOMI, EACs Clear, TMs Clear Neck: Supple, Trachea Midline, 2 Lungs: Clear to Auscultation, Normal Respiratory Effort Cardiovascular: Regular Rhythm, Normal S1, Normal S2, Tachycardia GI/Abdominal Exam: Normal Bowel Sounds, Soft, Guarding (Byers sign positive), Tender (right upper quadrant + Byers sign) (Male) Exam: Deferred Rectal (Males) Exam: Deferred Back Exam: Normal Inspection, Full Range of Motion Extremities: Normal Inspection, Normal Range of Motion, Non-Tender, No Pedal Edema, Normal Capillary Refill Peripheral Pulses: 2+: Radial (L), Radial (R), Dorsalis Pedis (L), Dorsalis Ped is (R) Skin: Warm, Dry, Intact, Other (dry discolored rash noted to right ankle) Neurological: Reflexes Equal Bilateral, Strength Equal Bilateral Neuro Extensive - Motor, Sensory, Reflexes: CN II-XII Intact, Normal Gait, Norm al Reflexes Psychiatric: Alert, Normal Affect, Normal Mood - Patient Data Lab Results Last 24 hrs: Laboratory Results - last 24 hr 06/09/20 06/09/20 06/09/20 Range/Units 17:28 17:28 17:28 WBC 17.4 H (4.5-11.0) K/uL RBC 5.09 (4.30-5.90) M/uL Hgb 14.3 (12.0-15.0) g/dL Hct 44.1 (40.0-54.0) % MCV 87 (80-98) fL MCH 28 (27-31) pg MCHC 32 (32-36) % Plt Count 317 (150-400) K/uL Sodium 139 L (140-148) mmol/L Potassium 3.8 (3.6-5.2) mmol/L Chloride 99 L (100-108) mmol/L Carbon Dioxide 28 (21-32) mmol/L Anion Gap 15.8 H (5.0-14.0) mmol/L BUN 19 H (7-18) mg/dL Creatinine 1.4 H D (0.8-1.3) mg/dL Est Cr Clr Drug Dosing 40.04 mL/min Estimated GFR (MDRD) 49 L (>60) Glucose 186 H (74-106) mg/dL Lactic Acid 2.1 H (0.4-2.0) mmol/L Calcium 9.2 (8.5-10.1) mg/dL Total Bilirubin 0.5 D (0.2-1.0) mg/dL AST 10 L (15-37) U/L ALT 19 (12-78) U/L Alkaline Phosphatase 105 (46-116) U/L C-Reactive Protein (0.0-0.3) mg/dL Total Protein 7.4 (6.4-8.2) g/dL Albumin 3.5 (3.4-5.0) g/dL Globulin 3.9 H (2.3-3.5) g/dL Albumin/Globulin Ratio 0.9 L (1.2-2.2) Lipase 30 L (73-393) U/L / Range/Units 17:28 WBC (4.5-11.0) K/uL RBC (4.30-5.90) M/uL Hgb (12.0-15.0) g/dL Hct (40.0-54.0) % MCV (80-98) fL MCH (27-31) pg MCHC (32-36) % Plt Count (150-400) K/uL Sodium (140-148) mmol/L Potassium (3.6-5.2) mmol/L Chloride (100-108) mmol/L Carbon Dioxide (21-32) mmol/L Anion Gap (5.0-14.0) mmol/L BUN (7-18) mg/dL Creatinine (0.8-1.3) mg/dL Est Cr Clr Drug Dosing mL/min Estimated GFR (MDRD) (>60) Glucose (74-106) mg/dL Lactic Acid (0.4-2.0) mmol/L Calcium (8.5-10.1) mg/dL Total Bilirubin (0.2-1.0) mg/dL AST (15-37) U/L ALT (12-78) U/L Alkaline Phosphatase (46-116) U/L C-Reactive Protein 20.46 H (0.0-0.3) mg/dL Total Protein (6.4-8.2) g/dL Albumin (3.4-5.0) g/dL Globulin (2.3-3.5) g/dL Albumin/Globulin Ratio (1.2-2.2) Lipase (73-393) U/L Result Diagrams: 06/09/20 17:28 06/09/20 17:28 Sepsis Event Note - Evaluation Sepsis Screening Result: No Definite Risk - Focused Exam Vital Signs: Vital Signs Temp Pulse Resp BP Pulse Ox 06/09/20 19:19 98.7 F 103 H 16 122/68 95 06/09/20 18:47 108 H 115/62 94 L 06/09/20 17:41 98.2 F 119 H 16 155/80 H 97 06/09/20 17:28 98.2 F 119 H 16 155/80 H 97 - Problem List (1) Acute cholecystitis SNOMED Code(s): 08181945 ICD Code: K81.0 - ACUTE CHOLECYSTITIS Status: Acute Priority: High Current Visit: Yes (2) Essential hypertension SNOMED Code(s): 34685773 ICD Code: I10 - ESSENTIAL (PRIMARY) HYPERTENSION Status: Chronic Priority: Low Current Visit: No (3) Type 2 diabetes mellitus SNOMED Code(s): 05978430 ICD Code: E11.9 - TYPE 2 DIABETES MELLITUS WITHOUT COMPLICATIONS Status: Chronic Priority: Low Current Visit: Yes Qualifiers: Diabetes mellitus emt intermediate insulin use: without residential use Diabetes mellitus complication status: without complication Qualified Code(s): E11.9 - Type 2 diabetes mellitus without complications Problem List Initiated/Reviewed/Updated: Yes Orders Last 24hrs: Active Orders 24 hr Category Date Time Status Cardiac Monitoring [RC] CONTINUOUS Care 06/09/20 19:19 Active Diabetes Education [RC] Click to Edit Care 06/09/20 19:19 Active Intake and Output [RC] QSHIFT Care 06/09/20 19:19 Active Notify Provider Consults [RC] ASDIRECTED Care 06/09/20 19:19 Active Notify Provider Vital Signs [RC] ASDIRECTED Care 06/09/20 19:19 Active Notify Provider [RC] PRN Care 06/09/20 19:19 Active Oxygen Therapy [RC] PRN Care 06/09/20 19:19 Active Pulse Oximetry [RC] CONTINUOUS Care 06/09/20 19:19 Active RT Aerosol Therapy [RC] ASDIRECTED Care 06/09/20 19:19 Active Up With Assistance [RC] ASDIRECTED Care 06/09/20 19:19 Active VTE/DVT Education [RC] Per Unit Routine Care 06/09/20 19:19 Active Vital Signs [RC] Q4H Care 06/09/20 19:19 Active Consult to Physician [CONS] Urgent Cons 06/09/20 19:19 Ordered Clear Liquid Diet [DIET] Diet 06/09/20 Dinner Active Nothing per Oral After Midnight Diet [DIET] Diet 06/09/20 Breakfast Active BASIC METABOLIC PANEL,BMP [CHEM] AM Lab 06/10/20 05:11 Ordered CBC WITH AUTO DIFF [HEME] AM Lab 06/10/20 05:11 Ordered GLUCOSE POC LAB TO COLLECT JPM [POC] QIDACANDBED Lab 06/09/20 21:00 Ordered LACTIC ACID [CHEM] Routine Lab 06/09/20 22:10 Ordered Acetaminophen [TylenoL] Med 06/09/20 19:19 Active 650 mg PO Q4H PRN Albuterol [Proventil Neb Soln] Med 06/09/20 19:19 Active 2.5 mg NEB Q4H PRN Ampicillin/Sulbactam Na [Unasyn] 3 gm Med 06/09/20 20:00 Active Sodium Chloride 0.9% [Normal Saline] 100 ml IV Q6H Docusate Sodium [Colace] Med 06/09/20 19:19 Active 100 mg PO BID PRN Insulin Lispro [HumaLOG] Med 06/09/20 20:00 Active See Protocol SUBCUT QIDACANDBED Lactated Ringers [Ringers, Lactated] 1,000 ml Med 06/09/20 19:19 Ordered IV ASDIRECTED Ondansetron [Zofran ODT] Med 06/09/20 19:19 Ordered 4 mg PO Q6H PRN Pantoprazole [ProTONIX IV] Med 06/09/20 19:19 Ordered 40 mg IV DAILY Sodium Chloride 0.9% [Normal Saline] 1,000 ml Med 06/09/20 19:19 Ordered IV ASDIRECTED Sodium Chloride 0.9% [Saline Flush] Med 06/09/20 17:17 Active 10 ml FLUSH ASDIRECTED PRN bisacodyL [Dulcolax] Med 06/09/20 19:19 Active 5 mg PO DAILY PRN diphenhydrAMINE [Benadryl] Med 06/09/20 21:00 Active 25 mg PO BEDTIME oxyCODONE Med 06/09/20 19:19 Ordered 5 mg PO Q4H PRN Saline Lock Insert [OM.PC] Routine Oth 06/09/20 17:17 Ordered Sequential Compression Device [OM.PC] Per Unit Routine Oth 06/09/20 19:19 Ordered Resuscitation Status Routine Resus Stat 06/09/20 18:53 Ordered Medication Orders Acetaminophen (Acetaminophen 325 Mg Tab) 650 mg PO Q4H PRN PRN Reason: Pain (Mild 1-3)/fever Albuterol (Albuterol 0.083% 2.5 Mg/3 Ml Neb Soln) 2.5 mg NEB Q4H PRN PRN Reason: Shortness Of Breath/wheezing Bisacodyl (Bisacodyl 5 Mg Tab) 5 mg PO DAILY PRN PRN Reason: Constipation Diphenhydramine HCl (Diphenhydramine 25 Mg Cap) 25 mg PO BEDTIME JEYSON Docusate Sodium (Docusate Sodium 100 Mg Cap) 100 mg PO BID PRN PRN Reason: Constipation Ampicillin Sodium/Sulbactam (Sodium 3 gm/ Sodium Chloride) 100 mls @ 200 mls/hr IV Q6H [facility] Lactated Ringer's (Ringers, Lactated) 1,000 mls @ 100 mls/hr IV ASDIRECTED [facility] Sodium Chloride (Normal Saline) 1,000 mls @ 250 mls/hr IV ASDIRECTED [facility] Insulin Human Lispro (Insulin Lispro 100 Unit/Ml 3 Ml Kwikpen) 0 unit SUBCUT QIDACANDBED [facility]; Protocol Ondansetron HCl (Ondansetron 4 Mg Tab.Dis) 4 mg PO Q6H PRN PRN Reason: Nausea able to take PO Oxycodone HCl (Oxycodone 5 Mg Tab) 5 mg PO Q4H PRN PRN Reason: Pain (moderate 4-6) Pantoprazole Sodium (Pantoprazole 40 Mg Vial) 40 mg IV DAILY JEYSON Sodium Chloride (Sodium Chloride 0.9% 10 Ml Syringe) 10 ml FLUSH ASDIRECTED PRN PRN Reason: Keep Vein Open Assessment/Plan Comment:: ASSESSMENT AND PLAN : Acute Cholecystitis This is a 79 year old male present to the ER from the Clinic with acute cholecystitis. Mr. Baldwin reports he has been sick for about 5 days. He was in the hospital on 06/07/2020 with similar concerns. He was discharge to home- pain free and feeling well, while at home he experienced intermittent back pain, he tried to eat today became nauseated and vomited. He went to the Clinic where he had a ultrasound which showed acute cholecystitis. He was given Rocephin 1 gram IM in clinic and referred to the ER and consulted to Dr. Abbott, who will do surgery in am. Acute Cholecystitis with early sepsis: vital signs 98.2-119-109 resp rate 16 B/P 115/62 O2 sat 94% ER workup shows WBC 17.4 hgb 14.3 hct 44.1 plt 78, Chemistry Na+ 139. K+ 3.8, anion gap 15.8, BUN 19, Cr 1.4 (baseline 0.9), GFR 49, glucose 186, CRP. 20.46, lactic acid 2.1 Acute Ciera -Admit to [address] [place] [address] for further monitoring- consulted with Internal Medicine Hospitalist for direction of care. -IV Normal Saline fluid bolus 1 liter- give at rate of 250ml/hr over 4 hours, 2nd liter Lactated Ringers 100ml/hr. -IV Antibiotic; Unasyn 3 gm IV every 6 hours -oxygen to keep saturations greater than 95% -Advise to notify nurses of any chest pain or other symptoms -blood cultures x2 pending -And a.m. labs: CBC, BMP -clear liquids now, NPO after midnight -medication for pain or nausea -repeat lab lactic acid recheck at 10 pm and 0400 Diabetes Type 2 -not insulin dependent -hold Metformin -Insulin short acting low dose sliding scale coverage -Blood glucose testing before meals and at bedtime Hypertension -continue outpatient therapy Maintenance issues -Nutrition: clear liquids, NPO after midnight -[place] catheter -not indicated at this time -DVT: SCD -GI-PPI CODE STATUS: FULL ADMISSION STATUS-this patient will be admitted to observation status, expect no more than a one night hospital stay for evaluation and management of problems as outlined above. DISPOSITION-anticipate discharge to home after the hospital stay. PRIMARY CARE PROVIDER-Dr. Allison Maynard, [facility] - Mortality Measure Prognosis:: Good
[2020-06-09] MEDS: Ampicillin/Sulbactam Na 3 GM in Sodium Chloride 0.9% 100 ML IV SCH (19:57)
[2020-06-09] MEDS: diphenhydrAMINE 25 MG Cap PO SCH (21:10)
[2020-06-09] MEDS: Insulin Lispro 100 Unit/ML 3 ML KwikPen SUBCUT SCH (21:20)
[2020-06-09] MEDS: Lactated Ringers 1,000 ML IV SCH (23:59)
[2020-06-10] MEDS: Ampicillin/Sulbactam Na 3 GM in Sodium Chloride 0.9% 100 ML IV SCH ×4 (02:19→22:05)
[2020-06-10 04:25] LABS: CORONAVIRUS COVID-19 NAA NEGATIVE (NEGATIVE)
[2020-06-10] MEDS: oxyCODONE 5 MG Tab PO PRN ×3 (06:10→17:49)
[2020-06-10] MEDS ORDERED: Propofol 200 MG/20 ML SDV ONE ×2 (07:42→12:30)
[2020-06-10] MEDS ORDERED: fentaNYL 100 MCG/2 ML SDV ONE ×2 (07:42→14:24)
[2020-06-10] MEDS ORDERED: Midazolam 1 MG/ML 2 ML SDV ONE (07:42)
[2020-06-10] MEDS: Insulin Lispro 100 Unit/ML 3 ML KwikPen SUBCUT SCH ×4 (07:52→22:07)
[2020-06-10] MEDS ORDERED: Lidocaine 1% with EPINEPHrine 1:100,000 50 ML MDV ONE (08:43)
[2020-06-10] MEDS ORDERED: Bupivacaine 0.5% 50 ML MDV ONE (08:43)
--- NOTE | 2020-06-10 10:27 | PCM.PN ---
- General Info Date of Service: 06/10/20 Subjective Update: Mr. Baldwin has been stable since admission last night. There has been improvement in white count and his heart rate has come down to normal range with improvement in blood pressure as well. There was a very slight elevation in lactic acid which has normalized. Is feeling improved with less abdominal pain and no nausea at the present time. Functional Status: Reports: Ambulating, Urinating - Review of Systems General: Reports: No Symptoms Pulmonary: Reports: No Symptoms Cardiovascular: Reports: No Symptoms Gastrointestinal: Reports: Abdominal Pain, Nausea. Denies: Diarrhea, Difficulty Swallowing, Hematochezia, Melena, Vomiting Genitourinary: Reports: No Symptoms - Patient Data Vitals - Most Recent: Last Vital Signs Temp 98.6 F 06/10/20 07:00 Pulse 98 06/10/20 07:00 Resp 18 06/10/20 07:00 BP 138/61 06/10/20 07:00 Pulse Ox 94 L 06/10/20 07:48 Weight - Most Recent: 164 lb 3.2 oz I&O - Last 24 Hours: Intake & Output 06/09/20 06/10/20 06/10/20 22:59 06:59 14:59 Intake Total 150 1330 100 Balance 150 1330 100 Lab Results Last 24 Hours: Laboratory Results - last 24 hr 06/09/20 06/09/20 06/09/20 Range/Units 17:28 17:28 17:28 WBC 17.4 H (4.5-11.0) K/uL RBC 5.09 (4.30-5.90) M/uL Hgb 14.3 (12.0-15.0) g/dL Hct 44.1 (40.0-54.0) % MCV 87 (80-98) fL MCH 28 (27-31) pg MCHC 32 (32-36) % Plt Count 317 (150-400) K/uL Neut % (Auto) (36-66) % Lymph % (Auto) (24-44) % Fannin % (Auto) (2-6) % Eos % (Auto) (2-4) % Baso % (Auto) (0-1) % Sodium 139 L (140-148) mmol/L Potassium 3.8 (3.6-5.2) mmol/L Chloride 99 L (100-108) mmol/L Carbon Dioxide 28 (21-32) mmol/L Anion Gap 15.8 H (5.0-14.0) mmol/L BUN 19 H (7-18) mg/dL Creatinine 1.4 H D (0.8-1.3) mg/dL Est Cr Clr Drug Dosing 40.04 mL/min Estimated GFR (MDRD) 49 L (>60) Glucose 186 H (74-106) mg/dL POC Glucose (74-106) MG/DL Lactic Acid 2.1 H (0.4-2.0) mmol/L Calcium 9.2 (8.5-10.1) mg/dL Total Bilirubin 0.5 D (0.2-1.0) mg/dL AST 10 L (15-37) U/L ALT 19 (12-78) U/L Alkaline Phosphatase 105 (46-116) U/L C-Reactive Protein (0.0-0.3) mg/dL Total Protein 7.4 (6.4-8.2) g/dL Albumin 3.5 (3.4-5.0) g/dL Globulin 3.9 H (2.3-3.5) g/dL Albumin/Globulin Ratio 0.9 L (1.2-2.2) Lipase 30 L (73-393) U/L Influenza Type A RNA (NEGATIVE) RSV RNA (INAAT) (NEGATIVE) Influenza Type B RNA (NEGATIVE) SARS-CoV-2 RNA (MIKHAIL) (NEGATIVE) 06/09/20 06/09/20 06/09/20 Range/Units 17:28 20:56 21:55 WBC (4.5-11.0) K/uL RBC (4.30-5.90) M/uL Hgb (12.0-15.0) g/dL Hct (40.0-54.0) % MCV (80-98) fL MCH (27-31) pg MCHC (32-36) % Plt Count (150-400) K/uL Neut % (Auto) (36-66) % Lymph % (Auto) (24-44) % Fannin % (Auto) (2-6) % Eos % (Auto) (2-4) % Baso % (Auto) (0-1) % Sodium (140-148) mmol/L Potassium (3.6-5.2) mmol/L Chloride (100-108) mmol/L Carbon Dioxide (21-32) mmol/L Anion Gap (5.0-14.0) mmol/L BUN (7-18) mg/dL Creatinine (0.8-1.3) mg/dL Est Cr Clr Drug Dosing mL/min Estimated GFR (MDRD) (>60) Glucose (74-106) mg/dL POC Glucose 234 H (74-106) MG/DL Lactic Acid 1.0 (0.4-2.0) mmol/L Calcium (8.5-10.1) mg/dL Total Bilirubin (0.2-1.0) mg/dL AST (15-37) U/L ALT (12-78) U/L Alkaline Phosphatase (46-116) U/L C-Reactive Protein 20.46 H (0.0-0.3) mg/dL Total Protein (6.4-8.2) g/dL Albumin (3.4-5.0) g/dL Globulin (2.3-3.5) g/dL Albumin/Globulin Ratio (1.2-2.2) Lipase (73-393) U/L Influenza Type A RNA (NEGATIVE) RSV RNA (INAAT) (NEGATIVE) Influenza Type B RNA (NEGATIVE) SARS-CoV-2 RNA (MIKHAIL) (NEGATIVE) 06/10/20 06/10/20 06/10/20 Range/Units 03:33 04:24 04:24 WBC 14.1 H (4.5-11.0) K/uL RBC 4.42 (4.30-5.90) M/uL Hgb 12.9 (12.0-15.0) g/dL Hct 38.3 L (40.0-54.0) % MCV 87 (80-98) fL MCH 29 (27-31) pg MCHC 34 (32-36) % Plt Count 257 (150-400) K/uL Neut % (Auto) 82 H (36-66) % Lymph % (Auto) 8 L (24-44) % Fannin % (Auto) 10 H (2-6) % Eos % (Auto) 0 L (2-4) % Baso % (Auto) 0 (0-1) % Sodium 140 (140-148) mmol/L Potassium 4.2 (3.6-5.2) mmol/L Chloride 101 (100-108) mmol/L Carbon Dioxide 27 (21-32) mmol/L Anion Gap 11.8 (5.0-14.0) mmol/L BUN 13 (7-18) mg/dL Creatinine 1.1 (0.8-1.3) mg/dL Est Cr Clr Drug Dosing 24.84 mL/min Estimated GFR (MDRD) > 60 (>60) Glucose 186 H (74-106) mg/dL POC Glucose (74-106) MG/DL Lactic Acid (0.4-2.0) mmol/L Calcium 9.1 (8.5-10.1) mg/dL Total Bilirubin (0.2-1.0) mg/dL AST (15-37) U/L ALT (12-78) U/L Alkaline Phosphatase (46-116) U/L C-Reactive Protein (0.0-0.3) mg/dL Total Protein (6.4-8.2) g/dL Albumin (3.4-5.0) g/dL Globulin (2.3-3.5) g/dL Albumin/Globulin Ratio (1.2-2.2) Lipase (73-393) U/L Influenza Type A RNA Negative (NEGATIVE) RSV RNA (INAAT) Negative (NEGATIVE) Influenza Type B RNA Negative (NEGATIVE) SARS-CoV-2 RNA (MIKHAIL) Negative (NEGATIVE) 06/10/20 Range/Units 07:30 WBC (4.5-11.0) K/uL RBC (4.30-5.90) M/uL Hgb (12.0-15.0) g/dL Hct (40.0-54.0) % MCV (80-98) fL MCH (27-31) pg MCHC (32-36) % Plt Count (150-400) K/uL Neut % (Auto) (36-66) % Lymph % (Auto) (24-44) % Fannin % (Auto) (2-6) % Eos % (Auto) (2-4) % Baso % (Auto) (0-1) % Sodium (140-148) mmol/L Potassium (3.6-5.2) mmol/L Chloride (100-108) mmol/L Carbon Dioxide (21-32) mmol/L Anion Gap (5.0-14.0) mmol/L BUN (7-18) mg/dL Creatinine (0.8-1.3) mg/dL Est Cr Clr Drug Dosing mL/min Estimated GFR (MDRD) (>60) Glucose (74-106) mg/dL POC Glucose 196 H (74-106) MG/DL Lactic Acid (0.4-2.0) mmol/L Calcium (8.5-10.1) mg/dL Total Bilirubin (0.2-1.0) mg/dL AST (15-37) U/L ALT (12-78) U/L Alkaline Phosphatase (46-116) U/L C-Reactive Protein (0.0-0.3) mg/dL Total Protein (6.4-8.2) g/dL Albumin (3.4-5.0) g/dL Globulin (2.3-3.5) g/dL Albumin/Globulin Ratio (1.2-2.2) Lipase (73-393) U/L Influenza Type A RNA (NEGATIVE) RSV RNA (INAAT) (NEGATIVE) Influenza Type B RNA (NEGATIVE) SARS-CoV-2 RNA (MIKHAIL) (NEGATIVE) Med Orders - Current: Current Medications Acetaminophen (Acetaminophen 325 Mg Tab) 650 mg PO Q4H PRN PRN Reason: Pain (Mild 1-3)/fever Albuterol (Albuterol 0.083% 2.5 Mg/3 Ml Neb Soln) 2.5 mg NEB Q4H PRN PRN Reason: Shortness Of Breath/wheezing Bisacodyl (Bisacodyl 5 Mg Tab) 5 mg PO DAILY PRN PRN Reason: Constipation Ropivacaine 37 ml/Dexamethasone 8 mg/Epinephrine HCl 0.4 mg/ Sodium Chloride 40.6 ml 0 ml NERVRT ASDIRECTED [facility] Diphenhydramine HCl (Diphenhydramine 25 Mg Cap) 25 mg PO BEDTIME [facility] Last Admin: 06/09/20 21:10 Dose: 25 mg Documented by: Docusate Sodium (Docusate Sodium 100 Mg Cap) 100 mg PO BID PRN PRN Reason: Constipation Ampicillin Sodium/Sulbactam (Sodium 3 gm/ Sodium Chloride) 100 mls @ 200 mls/hr IV Q6H [facility] Last Admin: 06/10/20 07:52 Dose: 200 mls/hr Documented by: Lactated Ringer's (Ringers, Lactated) 1,000 mls @ 100 mls/hr IV ASDIRECTED [facility] Last Admin: 06/09/20 23:59 Dose: 100 mls/hr Documented by: Sodium Chloride (Normal Saline) 1,000 mls @ 250 mls/hr IV ASDIRECTED [facility] Last Admin: 06/09/20 19:56 Dose: 250 mls/hr Documented by: Insulin Human Lispro (Insulin Lispro 100 Unit/Ml 3 Ml Kwikpen) 0 unit SUBCUT QIDACANDBED [facility]; Protocol Last Admin: 06/10/20 07:52 Dose: 1 unit Documented by: Ondansetron HCl (Ondansetron 4 Mg Tab.Dis) 4 mg PO Q6H PRN PRN Reason: Nausea able to take PO Oxycodone HCl (Oxycodone 5 Mg Tab) 5 mg PO Q4H PRN PRN Reason: Pain (moderate 4-6) Last Admin: 06/10/20 06:10 Dose: 5 mg Documented by: Pantoprazole Sodium (Pantoprazole 40 Mg Vial) 40 mg IV BEDTIME [facility] Sodium Chloride (Sodium Chloride 0.9% 10 Ml Syringe) 10 ml FLUSH ASDIRECTED PRN PRN Reason: Keep Vein Open Discontinued Medications Bupivacaine HCl (Bupivacaine 0.5% 50 Ml Mdv) Confirm Administered Dose 50 ml .ROUTE .STK-MED ONE Stop: 06/10/20 08:44 Fentanyl (Fentanyl 100 Mcg/2 Ml Sdv) Confirm Administered Dose 100 mcg .ROUTE .STK-MED ONE Stop: 06/10/20 07:43 Hydromorphone HCl (Hydromorphone 0.5 Mg/0.5 Ml Syringe) 0.5 mg IVPUSH ONETIME ONE Stop: 06/09/20 17:20 Last Admin: 06/09/20 18:11 Dose: 0.5 mg Documented by: Metronidazole 500 mg/ Premix 100 mls @ 100 mls/hr IV ONETIME ONE Stop: 06/09/20 18:51 Last Admin: 06/09/20 18:12 Dose: 100 mls/hr Documented by: Lidocaine/Epinephrine (Lidocaine 1% With Epinephrine 1:100,000 50 Ml Mdv) Confirm Administered Dose 50 ml .ROUTE .STK-MED ONE Stop: 06/10/20 08:44 Midazolam HCl (Midazolam 1 Mg/Ml 2 Ml Sdv) Confirm Administered Dose 2 mg .ROUTE .STK-MED ONE Stop: 06/10/20 07:43 Ondansetron HCl (Ondansetron 4 Mg/2 Ml Sdv) 4 mg IV ONETIME ONE Stop: 06/09/20 17:25 Last Admin: 06/09/20 18:10 Dose: 4 mg Documented by: Pantoprazole Sodium (Pantoprazole 40 Mg Vial) 40 mg IV DAILY [facility] Last Admin: 06/09/20 21:10 Dose: 40 mg Documented by: Propofol (Propofol 200 Mg/20 Ml Sdv) Confirm Administered Dose 200 mg .ROUTE .STK-MED ONE Stop: 06/10/20 07:43 - Exam General: Alert, Oriented, Cooperative, Mild Distress Lungs: Clear to Auscultation, Normal Respiratory Effort Cardiovascular: Regular Rate, Regular Rhythm, No Murmurs GI/Abdominal Exam: Soft, No Organomegaly, No Distention, Tender. No: Guarding, Rigid, Rebound Extremities: Non-Tender, No Pedal Edema - Patient Data Lab Results Last 24 hrs: Laboratory Results - last 24 hr 06/09/20 06/09/20 06/09/20 Range/Units 17:28 17:28 17:28 WBC 17.4 H (4.5-11.0) K/uL RBC 5.09 (4.30-5.90) M/uL Hgb 14.3 (12.0-15.0) g/dL Hct 44.1 (40.0-54.0) % MCV 87 (80-98) fL MCH 28 (27-31) pg MCHC 32 (32-36) % Plt Count 317 (150-400) K/uL Neut % (Auto) (36-66) % Lymph % (Auto) (24-44) % Fannin % (Auto) (2-6) % Eos % (Auto) (2-4) % Baso % (Auto) (0-1) % Sodium 139 L (140-148) mmol/L Potassium 3.8 (3.6-5.2) mmol/L Chloride 99 L (100-108) mmol/L Carbon Dioxide 28 (21-32) mmol/L Anion Gap 15.8 H (5.0-14.0) mmol/L BUN 19 H (7-18) mg/dL Creatinine 1.4 H D (0.8-1.3) mg/dL Est Cr Clr Drug Dosing 40.04 mL/min Estimated GFR (MDRD) 49 L (>60) Glucose 186 H (74-106) mg/dL POC Glucose (74-106) MG/DL Lactic Acid 2.1 H (0.4-2.0) mmol/L Calcium 9.2 (8.5-10.1) mg/dL Total Bilirubin 0.5 D (0.2-1.0) mg/dL AST 10 L (15-37) U/L ALT 19 (12-78) U/L Alkaline Phosphatase 105 (46-116) U/L C-Reactive Protein (0.0-0.3) mg/dL Total Protein 7.4 (6.4-8.2) g/dL Albumin 3.5 (3.4-5.0) g/dL Globulin 3.9 H (2.3-3.5) g/dL Albumin/Globulin Ratio 0.9 L (1.2-2.2) Lipase 30 L (73-393) U/L Influenza Type A RNA (NEGATIVE) RSV RNA (INAAT) (NEGATIVE) Influenza Type B RNA (NEGATIVE) SARS-CoV-2 RNA (MIKHAIL) (NEGATIVE) 06/09/20 06/09/20 06/09/20 Range/Units 17:28 20:56 21:55 WBC (4.5-11.0) K/uL RBC (4.30-5.90) M/uL Hgb (12.0-15.0) g/dL Hct (40.0-54.0) % MCV (80-98) fL MCH (27-31) pg MCHC (32-36) % Plt Count (150-400) K/uL Neut % (Auto) (36-66) % Lymph % (Auto) (24-44) % Fannin % (Auto) (2-6) % Eos % (Auto) (2-4) % Baso % (Auto) (0-1) % Sodium (140-148) mmol/L Potassium (3.6-5.2) mmol/L Chloride (100-108) mmol/L Carbon Dioxide (21-32) mmol/L Anion Gap (5.0-14.0) mmol/L BUN (7-18) mg/dL Creatinine (0.8-1.3) mg/dL Est Cr Clr Drug Dosing mL/min Estimated GFR (MDRD) (>60) Glucose (74-106) mg/dL POC Glucose 234 H (74-106) MG/DL Lactic Acid 1.0 (0.4-2.0) mmol/L Calcium (8.5-10.1) mg/dL Total Bilirubin (0.2-1.0) mg/dL AST (15-37) U/L ALT (12-78) U/L Alkaline Phosphatase (46-116) U/L C-Reactive Protein 20.46 H (0.0-0.3) mg/dL Total Protein (6.4-8.2) g/dL Albumin (3.4-5.0) g/dL Globulin (2.3-3.5) g/dL Albumin/Globulin Ratio (1.2-2.2) Lipase (73-393) U/L Influenza Type A RNA (NEGATIVE) RSV RNA (INAAT) (NEGATIVE) Influenza Type B RNA (NEGATIVE) SARS-CoV-2 RNA (MIKHAIL) (NEGATIVE) 06/10/20 06/10/20 06/10/20 Range/Units 03:33 04:24 04:24 WBC 14.1 H (4.5-11.0) K/uL RBC 4.42 (4.30-5.90) M/uL Hgb 12.9 (12.0-15.0) g/dL Hct 38.3 L (40.0-54.0) % MCV 87 (80-98) fL MCH 29 (27-31) pg MCHC 34 (32-36) % Plt Count 257 (150-400) K/uL Neut % (Auto) 82 H (36-66) % Lymph % (Auto) 8 L (24-44) % Fannin % (Auto) 10 H (2-6) % Eos % (Auto) 0 L (2-4) % Baso % (Auto) 0 (0-1) % Sodium 140 (140-148) mmol/L Potassium 4.2 (3.6-5.2) mmol/L Chloride 101 (100-108) mmol/L Carbon Dioxide 27 (21-32) mmol/L Anion Gap 11.8 (5.0-14.0) mmol/L BUN 13 (7-18) mg/dL Creatinine 1.1 (0.8-1.3) mg/dL Est Cr Clr Drug Dosing 24.84 mL/min Estimated GFR (MDRD) > 60 (>60) Glucose 186 H (74-106) mg/dL POC Glucose (74-106) MG/DL Lactic Acid (0.4-2.0) mmol/L Calcium 9.1 (8.5-10.1) mg/dL Total Bilirubin (0.2-1.0) mg/dL AST (15-37) U/L ALT (12-78) U/L Alkaline Phosphatase (46-116) U/L C-Reactive Protein (0.0-0.3) mg/dL Total Protein (6.4-8.2) g/dL Albumin (3.4-5.0) g/dL Globulin (2.3-3.5) g/dL Albumin/Globulin Ratio (1.2-2.2) Lipase (73-393) U/L Influenza Type A RNA Negative (NEGATIVE) RSV RNA (INAAT) Negative (NEGATIVE) Influenza Type B RNA Negative (NEGATIVE) SARS-CoV-2 RNA (MIKHAIL) Negative (NEGATIVE) 06/10/20 Range/Units 07:30 WBC (4.5-11.0) K/uL RBC (4.30-5.90) M/uL Hgb (12.0-15.0) g/dL Hct (40.0-54.0) % MCV (80-98) fL MCH (27-31) pg MCHC (32-36) % Plt Count (150-400) K/uL Neut % (Auto) (36-66) % Lymph % (Auto) (24-44) % Fannin % (Auto) (2-6) % Eos % (Auto) (2-4) % Baso % (Auto) (0-1) % Sodium (140-148) mmol/L Potassium (3.6-5.2) mmol/L Chloride (100-108) mmol/L Carbon Dioxide (21-32) mmol/L Anion Gap (5.0-14.0) mmol/L BUN (7-18) mg/dL Creatinine (0.8-1.3) mg/dL Est Cr Clr Drug Dosing mL/min Estimated GFR (MDRD) (>60) Glucose (74-106) mg/dL POC Glucose 196 H (74-106) MG/DL Lactic Acid (0.4-2.0) mmol/L Calcium (8.5-10.1) mg/dL Total Bilirubin (0.2-1.0) mg/dL AST (15-37) U/L ALT (12-78) U/L Alkaline Phosphatase (46-116) U/L C-Reactive Protein (0.0-0.3) mg/dL Total Protein (6.4-8.2) g/dL Albumin (3.4-5.0) g/dL Globulin (2.3-3.5) g/dL Albumin/Globulin Ratio (1.2-2.2) Lipase (73-393) U/L Influenza Type A RNA (NEGATIVE) RSV RNA (INAAT) (NEGATIVE) Influenza Type B RNA (NEGATIVE) SARS-CoV-2 RNA (MIKHAIL) (NEGATIVE) Result Diagrams: 06/10/20 04:24 06/10/20 04:24 Sepsis Event Note - Evaluation Sepsis Screening Result: Sepsis Risk - Focused Exam Vital Signs: Vital Signs Temp Pulse Resp BP Pulse Ox 06/10/20 07:48 94 L 06/10/20 07:00 98.6 F 98 18 138/61 96 06/10/20 02:22 100.4 F 102 H 16 131/61 93 L 06/10/20 01:00 92 L 06/09/20 23:56 99.3 F 95 16 137/64 99 - Problem List Review Problem List Initiated/Reviewed/Updated: Yes - My Orders Last 24 Hours: My Active Orders 06/11/20 05:00 BASIC METABOLIC PANEL,BMP [CHEM] Timed CBC WITH AUTO DIFF [HEME] Timed - Plan Plan:: ASSESSMENT AND PLAN Acute Cholecystitis-. That he had developed early sepsis and significant infection on admission. He has been more stable since admission following IV f luids and IV antibiotic therapy -IV Lactated Ringers 100ml/hr. -IV Antibiotic; Unasyn 3 gm IV every 6 hours -oxygen to keep saturations greater than 95% -blood cultures x2 pending -And a.m. labs: CBC, BMP -NPO -medication for pain or nausea -Consult Dr. Cervantes for surgical management Diabetes Type 2 -not insulin dependent -hold Metformin -Insulin short acting low dose sliding scale coverage -Blood glucose testing before meals and at bedtime Hypertension -continue outpatient therapy Maintenance issues -Nutrition-NPO -Rutherford catheter -not indicated at this time -DVT: SCD -GI-PPI CODE STATUS: FULL ADMISSION STATUS-this patient will be admitted to observation status, expect no more than a one night hospital stay for evaluation and management of problems as outlined above. DISPOSITION-anticipate discharge to home after the hospital stay. PRIMARY CARE PROVIDER-Dr. Allison Maynard, [facility]
[2020-06-10] MEDS: Lactated Ringers 1,000 ML IV SCH (11:31)
[2020-06-10] MEDS ORDERED: Rocuronium 50 MG/5 ML Vial ONE (12:30)
[2020-06-10] MEDS ORDERED: Neostigmine Methylsulfate 1 MG/ML 5 ML Syringe ONE (12:30)
[2020-06-10] MEDS ORDERED: Succinylcholine 200 MG/10 ML MDV ONE (12:30)
[2020-06-10] MEDS ORDERED: Glycopyrrolate 0.2 MG/ML 5 ML MDV ONE (12:30)
[2020-06-10] MEDS ORDERED: Ondansetron 4 MG/2 ML SDV ONE (12:30)
[2020-06-10] MEDS ORDERED: Dexamethasone 4 MG/ML SDV ONE (12:30)
[2020-06-10] MEDS ORDERED: Sodium Chloride 0.9% 10 ML ONE (14:14)
[2020-06-10] MEDS ORDERED: ePHEDrine 50 MG/ML SDV ONE (14:14)
[2020-06-10] MEDS ORDERED: Lactated Ringers 1,000 ML ONE (14:42)
[2020-06-10] MEDS ORDERED: metFORMIN 500 MG Tab PO SCH (20:13)
[2020-06-10] MEDS ORDERED: Cetirizine 10 MG Tab PO PRN (20:18)
[2020-06-10] MEDS ORDERED: Albuterol/Ipratropium 4 GM Inhalation Spray INH PRN (20:19)
[2020-06-10] MEDS ORDERED: glipiZIDE 5 MG Tab PO SCH (21:00)
[2020-06-10] MEDS ORDERED: Pantoprazole 40 MG Vial IV SCH (21:00)
[2020-06-10] MEDS: diphenhydrAMINE 25 MG Cap PO SCH (22:15)
[2020-06-11] MEDS: oxyCODONE 5 MG Tab PO PRN ×4 (00:34→20:59)
[2020-06-11] MEDS: Ampicillin/Sulbactam Na 3 GM in Sodium Chloride 0.9% 100 ML IV SCH ×4 (02:54→20:59)
--- NOTE | 2020-06-11 07:29 | OR ---
DATE OF PROCEDURE: 06/10/2020 SURGEON: Stephan Cervantes MD PROCEDURE: 1. Transversus abdominis plane block bilaterally. 2. Rectus sheath block, bilaterally. COMPLICATION: None. RISKS: Risks, benefits, alternatives, limitations, including, but not limited to, infection, bleeding, injury to abdominal structures were explained to the patient, who wished to proceed. PROCEDURE IN DETAIL: The patient was placed in the supine position. Using a 13 megahertz ultrasound probe, the left rectus sheath was addressed first. This was then accessed using a 21-gauge needle and 20% solution was injected. This was performed on the right side and then on bilateral rectus sheath, all under ultrasound guidance. With respect to the rectus sheath, this was injected in the inferior aspect, and no time during any of the 4 injections was perineum entered. The patient tolerated the procedure well. Stephan Cervantes MD /[id number]
[2020-06-11] MEDS ORDERED: Pantoprazole 40 MG **PTOM PO SCH (07:30)
[2020-06-11] MEDS: Insulin Lispro 100 Unit/ML 3 ML KwikPen SUBCUT SCH ×4 (07:45→21:08)
[2020-06-11] MEDS ORDERED: GLIPIZIDE 5 MG PO SCH (08:00)
[2020-06-11] MEDS ORDERED: METFORMIN 1000MG **PTOM PO SCH (08:00)
[2020-06-11] MEDS ORDERED: MULTIVITAMINS PO SCH (09:00)
[2020-06-11] MEDS ORDERED: Aspirin 81 MG EC **PTOM PO SCH (09:00)
[2020-06-11] MEDS ORDERED: LISINOPRIL 10 MG PO SCH (09:00)
--- NOTE | 2020-06-11 10:58 | PN ---
DATE OF SERVICE: 06/11/2020 SUBJECTIVE: The patient is doing significantly better today. Pain is well controlled. No nausea, vomiting, shortness of breath, or chest pain. OBJECTIVE: VITAL SIGNS: Stable. He is afebrile per nursing report. CARDIOVASCULAR: Regular rhythm and rate. RESPIRATORY: Lungs are clear to auscultation bilaterally. SKIN: Incisions healing well. Drain output is serosanguineous. ASSESSMENT: Status post laparoscopic cholecystectomy. PLAN: We will continue antibiotics at this time. Anticipate discharge in the next 24 to 48 hours. Stephan Cervantes MD /[id number]
[2020-06-11] MEDS: Levothyroxine 112 MCG Tab PO SCH (11:46)
--- NOTE | 2020-06-11 13:42 | OR ---
DATE OF PROCEDURE: 06/10/2020 SURGEON: Stephan Cervantes MD PROCEDURE: Laparoscopic cholecystectomy. FINDINGS: Necrotic, infected gallbladder consistent with cholelithiasis and cholecystitis. PREOPERATIVE DIAGNOSIS: Gallbladder disease with cholelithiasis and cholecystitis. POSTOPERATIVE DIAGNOSIS: Gallbladder disease with cholelithiasis and cholecystitis. RISKS: Risks, benefits, alternatives, and limitations including, but not limited to, infection, bleeding, injury to cystic duct, common bile duct, leaks, open surgery, sepsis, hematoma, seroma, and other risks not listed here were explained to the patient who wished to proceed. PROCEDURE IN DETAIL: The patient was placed in supine position. A supraumbilical curvilinear incision was made. A Veress needle was used to enter the abdomen without abnormality. A drop test was performed without abnormality. The abdomen was subsequently insufflated. An additional 10 and two 5 mm ports were entered under direct visualization. The gallbladder was found to be wrapped with omentum. After wrapping this, the gallbladder itself and associated wall were noted to be necrotic. There was a fluid collection around this. This would be cultured. Using blunt dissection, the inflammatory tissue was fully and carefully removed. Eventually, a single pulsatile structure was noted entering the gallbladder and a single non-pulsatile structure entering the gallbladder. These were subsequently stapled and clips respectively. The remaining 1/3rd of the gallbladder was removed off the gallbladder bed without difficulty. In fact, the gallbladder itself was essentially not attached to the liver anymore due to necrosis. This was delivered through the superior port. The gallbladder bed was then irrigated and bleeding was addressed with electrocautery. Due to the necrotic and probable infected nature of the gallbladder, a single 10 flat Wellington-Valerio drain was placed in the gallbladder fossa. The air was removed. The wounds were closed with 3-0 Vicryl and 4-0 Vicryl in interrupted running fashion. The patient tolerated the procedure well. Stephan Cervantes MD /[id number]
--- NOTE | 2020-06-11 13:49 | PCM.PN ---
- General Info Date of Service: 06/11/20 Subjective Update: Mr. Baldwin has been stable since surgery yesterday. Reports abdominal wall pain as would be expected following recent surgical procedure. He has tolerated diet thus far and has remained afebrile as well as hemodynamically stable. White blood cell count does remain elevated. Functional Status: Reports: Tolerating Diet, Ambulating, Urinating - Review of Systems General: Reports: No Symptoms Pulmonary: Reports: No Symptoms Cardiovascular: Reports: No Symptoms Gastrointestinal: Reports: Abdominal Pain. Denies: Difficulty Swallowing, Hematochezia, Melena, Nausea, Vomiting Genitourinary: Reports: No Symptoms - Patient Data Vitals - Most Recent: Last Vital Signs Temp 96.5 F L 06/11/20 07:00 Pulse 87 06/11/20 11:00 Resp 16 06/11/20 02:55 BP 149/69 H 06/11/20 11:00 Pulse Ox 94 L 06/11/20 11:00 Weight - Most Recent: 164 lb 3.205 oz I&O - Last 24 Hours: Intake & Output 06/10/20 06/11/20 06/11/20 22:59 06:59 14:59 Intake Total 160 800 Output Total 325 730 Balance -165 70 Lab Results Last 24 Hours: Laboratory Results - last 24 hr 06/10/20 06/10/20 06/11/20 Range/Units 16:30 20:56 04:34 WBC (4.5-11.0) K/uL RBC (4.30-5.90) M/uL Hgb (12.0-15.0) g/dL Hct (40.0-54.0) % MCV (80-98) fL MCH (27-31) pg MCHC (32-36) % Plt Count (150-400) K/uL Neut % (Auto) (36-66) % Lymph % (Auto) (24-44) % Gregg % (Auto) (2-6) % Eos % (Auto) (2-4) % Baso % (Auto) (0-1) % Sodium (140-148) mmol/L Potassium (3.6-5.2) mmol/L Chloride (100-108) mmol/L Carbon Dioxide (21-32) mmol/L Anion Gap (5.0-14.0) mmol/L BUN (7-18) mg/dL Creatinine (0.8-1.3) mg/dL Est Cr Clr Drug Dosing mL/min Estimated GFR (MDRD) (>60) Glucose (74-106) mg/dL POC Glucose 238 H 310 H (74-106) MG/DL Calcium (8.5-10.1) mg/dL Total Bilirubin 0.4 (0.2-1.0) mg/dL Direct Bilirubin 0.14 (0.0-0.2) mg/dL Indirect Bilirubin 0.26 AST 61 H D (15-37) U/L ALT 65 D (12-78) U/L Alkaline Phosphatase 101 (46-116) U/L Total Protein 6.4 (6.4-8.2) g/dL Albumin 2.6 L (3.4-5.0) g/dL Globulin 3.8 H (2.3-3.5) g/dL Albumin/Globulin Ratio 0.7 L (1.2-2.2) 06/11/20 06/11/20 06/11/20 Range/Units 04:44 04:44 07:22 WBC 16.5 H (4.5-11.0) K/uL RBC 4.21 L (4.30-5.90) M/uL Hgb 12.3 (12.0-15.0) g/dL Hct 36.3 L (40.0-54.0) % MCV 86 (80-98) fL MCH 29 (27-31) pg MCHC 34 (32-36) % Plt Count 281 (150-400) K/uL Neut % (Auto) 90 H (36-66) % Lymph % (Auto) 5 L (24-44) % Gregg % (Auto) 5 (2-6) % Eos % (Auto) 0 L (2-4) % Baso % (Auto) 0 (0-1) % Sodium 140 (140-148) mmol/L Potassium 4.6 (3.6-5.2) mmol/L Chloride 101 (100-108) mmol/L Carbon Dioxide 28 (21-32) mmol/L Anion Gap 11.1 (5.0-14.0) mmol/L BUN 12 (7-18) mg/dL Creatinine 1.0 (0.8-1.3) mg/dL Est Cr Clr Drug Dosing 57.00 mL/min Estimated GFR (MDRD) > 60 (>60) Glucose 246 H (74-106) mg/dL POC Glucose 219 H (74-106) MG/DL Calcium 9.5 (8.5-10.1) mg/dL Total Bilirubin (0.2-1.0) mg/dL Direct Bilirubin (0.0-0.2) mg/dL Indirect Bilirubin AST (15-37) U/L ALT (12-78) U/L Alkaline Phosphatase (46-116) U/L Total Protein (6.4-8.2) g/dL Albumin (3.4-5.0) g/dL Globulin (2.3-3.5) g/dL Albumin/Globulin Ratio (1.2-2.2) 06/11/20 Range/Units 11:25 WBC (4.5-11.0) K/uL RBC (4.30-5.90) M/uL Hgb (12.0-15.0) g/dL Hct (40.0-54.0) % MCV (80-98) fL MCH (27-31) pg MCHC (32-36) % Plt Count (150-400) K/uL Neut % (Auto) (36-66) % Lymph % (Auto) (24-44) % Gregg % (Auto) (2-6) % Eos % (Auto) (2-4) % Baso % (Auto) (0-1) % Sodium (140-148) mmol/L Potassium (3.6-5.2) mmol/L Chloride (100-108) mmol/L Carbon Dioxide (21-32) mmol/L Anion Gap (5.0-14.0) mmol/L BUN (7-18) mg/dL Creatinine (0.8-1.3) mg/dL Est Cr Clr Drug Dosing mL/min Estimated GFR (MDRD) (>60) Glucose (74-106) mg/dL POC Glucose 327 H (74-106) MG/DL Calcium (8.5-10.1) mg/dL Total Bilirubin (0.2-1.0) mg/dL Direct Bilirubin (0.0-0.2) mg/dL Indirect Bilirubin AST (15-37) U/L ALT (12-78) U/L Alkaline Phosphatase (46-116) U/L Total Protein (6.4-8.2) g/dL Albumin (3.4-5.0) g/dL Globulin (2.3-3.5) g/dL Albumin/Globulin Ratio (1.2-2.2) [place] Results Last 24 Hours: Microbiology 06/10/20 14:18 Gram Stain - Final Gallbladder Wound Culture - Preliminary Gram Positive Rods Anaerobic Culture - Preliminary NO GROWTH AFTER 1 DAY 06/09/20 21:55 Aerobic Blood Culture - Preliminary Blood - Venous NO GROWTH AFTER 1 DAY Anaerobic Blood Culture - Preliminary NO GROWTH AFTER 1 DAY 06/09/20 22:06 Aerobic Blood Culture - Preliminary Blood - Venous - Lab Draw NO GROWTH AFTER 1 DAY Anaerobic Blood Culture - Preliminary NO GROWTH AFTER 1 DAY Med Orders - Current: Current Medications Acetaminophen (Acetaminophen 325 Mg Tab) 650 mg PO Q4H PRN PRN Reason: Pain (Mild 1-3)/fever Albuterol (Albuterol 0.083% 2.5 Mg/3 Ml Neb Soln) 2.5 mg NEB Q4H PRN PRN Reason: Shortness Of Breath/wheezing Last Admin: 06/10/20 11:30 Dose: 2.5 mg Documented by: Albuterol/Ipratropium (Albuterol/Ipratropium 4 Gm Inhalation Capron) 0 gm INH Q4H PRN PRN Reason: Dyspnea Aspirin (Aspirin 81 Mg Tab.Ec) 81 mg PO DAILY JEYSON Bisacodyl (Bisacodyl 5 Mg Tab) 5 mg PO DAILY PRN PRN Reason: Constipation Cetirizine HCl (Cetirizine 10 Mg Tab) 10 mg PO BEDTIME PRN PRN Reason: Allergies Last Admin: 06/10/20 22:15 Dose: 10 mg Documented by: Diphenhydramine HCl (Diphenhydramine 25 Mg Cap) 25 mg PO BEDTIME JEYSON Last Admin: 06/10/20 22:15 Dose: 25 mg Documented by: Docusate Sodium (Docusate Sodium 100 Mg Cap) 100 mg PO BID PRN PRN Reason: Constipation Glipizide (Glipizide 5 Mg Tab) 2.5 mg PO BIDAC [facility]YS[facility] Ampicillin Sodium/Sulbactam (Sodium 3 gm/ Sodium Chloride) 100 mls @ 200 mls/hr IV Q6H JEYSON Last Admin: 06/11/20 13:16 Dose: 200 mls/hr Documented by: Insulin Human Lispro (Insulin Lispro 100 Unit/Ml 3 Ml Kwikpen) 0 unit SUBCUT QIDACANDBED [facility]; Protocol Last Admin: 06/11/20 11:37 Dose: 4 unit Documented by: Levothyroxine Sodium (Levothyroxine 112 Mcg Tab) 112 mcg PO ACBREAKFAST [facility] Last Admin: 06/11/20 11:46 Dose: 112 mcg Documented by: Lisinopril (Lisinopril 10 Mg Tab) 10 mg PO DAILY [facility] Lovastatin (Lovastatin 20 Mg Tab) 10 mg PO DAILY [facility] Last Admin: 06/11/20 11:35 Dose: Not Given Documented by: Metformin HCl (Metformin 500 Mg Tab) 1,000 mg PO BIDMEALS [facility] Multivitamins/Minerals (Multivitamins With Iron/Calcium/Folic Acid/Minerals Tab) 1 tab PO DAILY [facility] Ondansetron HCl (Ondansetron 4 Mg Tab.Dis) 4 mg PO Q6H PRN PRN Reason: Nausea able to take PO Oxycodone HCl (Oxycodone 5 Mg Tab) 5 mg PO Q4H PRN PRN Reason: Pain (moderate 4-6) Last Admin: 06/11/20 11:40 Dose: 5 mg Documented by: Pantoprazole Sodium (Pantoprazole 40 Mg Tab.Cr) 40 mg PO BIDAC [facility] Sodium Chloride (Sodium Chloride 0.9% 10 Ml Syringe) 10 ml FLUSH ASDIRECTED PRN PRN Reason: Keep Vein Open Discontinued Medications Aspirin (Aspirin 81 Mg Ec Ptom) 81 mg PO DAILY [facility] Last Admin: 06/11/20 08:42 Dose: 81 mg Documented by: Bupivacaine HCl (Bupivacaine 0.5% 50 Ml Mdv) Confirm Administered Dose 50 ml .ROUTE .STK-MED ONE Stop: 06/10/20 08:44 Ropivacaine 37 ml/Dexamethasone 8 mg/Epinephrine HCl 0.4 mg/ Sodium Chloride 40.6 ml 0 ml NERVRT ASDIRECTED [facility] Last Admin: 06/10/20 13:42 Dose: 80 syringe Documented by: Dexamethasone (Dexamethasone 4 Mg/Ml Sdv) Confirm Administered Dose 4 mg .ROUTE .STK-MED ONE Stop: 06/10/20 12:31 Ephedrine Sulfate (Ephedrine 50 Mg/Ml Sdv) Confirm Administered Dose 50 mg .ROUTE .STK-MED ONE Stop: 06/10/20 14:15 Fentanyl (Fentanyl 100 Mcg/2 Ml Sdv) Confirm Administered Dose 100 mcg .ROUTE .[facility] ONE Stop: 06/10/20 07:43 Fentanyl (Fentanyl 100 Mcg/2 Ml Sdv) Confirm Administered Dose 100 mcg .ROUTE .[facility] ONE Stop: 06/10/20 14:25 Glipizide (Glipizide 5 Mg Tab) 2.5 mg PO BIDAC [facility] Last Admin: 06/10/20 22:15 Dose: 2.5 mg Documented by: Glipizide (Glipizide 5 Mg Ptom) 2.5 mg PO BIDAC [facility] Last Admin: 06/11/20 08:41 Dose: 2.5 mg Documented by: Glycopyrrolate (Glycopyrrolate 0.2 Mg/Ml 5 Ml Mdv) Confirm Administered Dose 1 [address] .[address] .[facility] ONE Stop: 06/10/20 12:31 Hydromorphone HCl (Hydromorphone 0.5 Mg/0.5 Ml Syringe) 0.5 mg IVPUSH ONETIME ONE Stop: 06/09/20 17:20 Last Admin: 06/09/20 18:11 Dose: 0.5 mg Documented by: Metronidazole 500 mg/ Premix 100 mls @ 100 mls/hr IV ONETIME ONE Stop: 06/09/20 18:51 Last Admin: 06/09/20 18:12 Dose: 100 mls/hr Documented by: Lactated Ringer's (Ringers, Lactated) 1,000 mls [facility] Last Admin: 06/10/20 11:31 Dose: 100 mls/hr Documented by: Sodium Chloride (Normal Saline) 1,000 mls @ 250 mls/hr IV ASDIRECTED [facility] Last Admin: 06/09/20 19:56 Dose: 250 mls/hr Documented by: Sodium Chloride (Normal Saline) Confirm Administered Dose 10 mls @ as directed .ROUTE .[facility] ONE Stop: 06/10/20 14:15 Lactated Ringer's (Ringers, Lactated) Confirm Administered Dose 1,000 mls @ as directed .ROUTE .[facility] ONE Stop: 06/10/20 14:43 Lidocaine/Epinephrine (Lidocaine 1% With Epinephrine 1:100,000 50 Ml Mdv) Confirm Administered Dose 50 ml .ROUTE .STK-MED ONE Stop: 06/10/20 08:44 Lisinopril (Lisinopril 10 Mg Ptom) 10 mg PO DAILY [facility] Last Admin: 06/11/20 08:39 Dose: 10 mg Documented by: Metformin HCl (Metformin 500 Mg Tab) 1,000 mg PO BIDMEALS [facility] Last Admin: 06/10/20 22:14 Dose: 1,000 mg Documented by: Midazolam HCl (Midazolam 1 Mg/Ml 2 Ml Sdv) Confirm Administered Dose 2 mg .ROUTE .STK-MED ONE Stop: 06/10/20 07:43 Multivitamins/Minerals (Multivitamins Ptom) 1 tab PO DAILY [facility] Last Admin: 06/11/20 08:42 Dose: 1 tab Documented by: Neostigmine Methylsulfate (Neostigmine Methylsulfate 1 Mg/Ml 5 Ml Syringe) Confirm Administered Dose 5 mg .ROUTE .STK-MED ONE Stop: 06/10/20 12:31 Ondansetron HCl (Ondansetron 4 Mg/2 Ml Sdv) 4 mg IV ONETIME ONE Stop: 06/09/20 17:25 Last Admin: 06/09/20 18:10 Dose: 4 mg Documented by: Ondansetron HCl (Ondansetron 4 Mg/2 Ml Sdv) Confirm Administered Dose 4 mg .ROUTE .STK-MED ONE Stop: 06/10/20 12:31 Pantoprazole Sodium (Pantoprazole 40 Mg Vial) 40 mg IV DAILY [facility] Last Admin: 06/09/20 21:10 Dose: 40 mg Documented by: Pantoprazole Sodium (Pantoprazole 40 Mg Vial) 40 mg IV BEDTIME [facility] Last Admin: 06/10/20 22:20 Dose: Not Given Documented by: Pantoprazole Sodium (Pantoprazole 40 Mg Ptom) 40 mg PO BIDAC [facility] Last Admin: 06/11/20 08:43 Dose: 40 mg Documented by: Metformin 1000mg (Ptom) 0 each PO BIDMEALS [facility] Last Admin: 06/11/20 08:43 Dose: 1 each Documented by: Propofol (Propofol 200 Mg/20 Ml Sdv) Confirm Administered Dose 200 mg .ROUTE .STK-MED ONE Stop: 06/10/20 07:43 Propofol (Propofol 200 Mg/20 Ml Sdv) Confirm Administered Dose 200 mg .ROUTE .S TK-MED ONE Stop: 06/10/20 12:31 Rocuronium [place] (Rocuronium 50 Mg/5 Ml Vial) Confirm Administered Dose 50 mg .ROUTE .STK-MED ONE Stop: 06/10/20 12:31 Succinylcholine Chloride (Succinylcholine 200 Mg/10 Ml Mdv) Confirm Administered Dose 200 mg .ROUTE .STK-MED ONE Stop: 06/10/20 12:31 - Exam Quality Assessment: DVT Prophylaxis General: Alert, Oriented, Cooperative, Mild Distress Lungs: Clear to Auscultation, Normal Respiratory Effort Cardiovascular: Regular Rate, Regular Rhythm, No Murmurs GI/Abdominal Exam: Soft, No Organomegaly, Tender. No: Distended, Guarding, Rigid, Rebound Extremities: Non-Tender, No Pedal Edema - Patient Data Lab Results Last 24 hrs: Laboratory Results - last 24 hr 06/10/20 06/10/20 06/11/20 Range/Units 16:30 20:56 04:34 WBC (4.5-11.0) K/uL RBC (4.30-5.90) M/uL Hgb (12.0-15.0) g/dL Hct (40.0-54.0) % MCV (80-98) fL MCH (27-31) pg MCHC (32-36) % Plt Count (150-400) K/uL Neut % (Auto) (36-66) % Lymph % (Auto) (24-44) % Gregg % (Auto) (2-6) % Eos % (Auto) (2-4) % Baso % (Auto) (0-1) % Sodium (140-148) mmol/L Potassium (3.6-5.2) mmol/L Chloride (100-108) mmol/L Carbon Dioxide (21-32) mmol/L Anion Gap (5.0-14.0) mmol/L BUN (7-18) mg/dL Creatinine (0.8-1.3) mg/dL Est Cr Clr Drug Dosing mL/min Estimated GFR (MDRD) (>60) Glucose (74-106) mg/dL POC Glucose 238 H 310 H (74-106) MG/DL Calcium (8.5-10.1) mg/dL Total Bilirubin 0.4 (0.2-1.0) mg/dL Direct Bilirubin 0.14 (0.0-0.2) mg/dL Indirect Bilirubin 0.26 AST 61 H D (15-37) U/L ALT 65 D (12-78) U/L Alkaline Phosphatase 101 (46-116) U/L Total Protein 6.4 (6.4-8.2) g/dL Albumin 2.6 L (3.4-5.0) g/dL Globulin 3.8 H (2.3-3.5) g/dL Albumin/Globulin Ratio 0.7 L (1.2-2.2) 06/11/20 06/11/20 06/11/20 Range/Units 04:44 04:44 07:22 WBC 16.5 H (4.5-11.0) K/uL RBC 4.21 L (4.30-5.90) M/uL Hgb 12.3 (12.0-15.0) g/dL Hct 36.3 L (40.0-54.0) % MCV 86 (80-98) fL MCH 29 (27-31) pg MCHC 34 (32-36) % Plt Count 281 (150-400) K/uL Neut % (Auto) 90 H (36-66) % Lymph % (Auto) 5 L (24-44) % Gregg % (Auto) 5 (2-6) % Eos % (Auto) 0 L (2-4) % Baso % (Auto) 0 (0-1) % Sodium 140 (140-148) mmol/L Potassium 4.6 (3.6-5.2) mmol/L Chloride 101 (100-108) mmol/L Carbon Dioxide 28 (21-32) mmol/L Anion Gap 11.1 (5.0-14.0) mmol/L BUN 12 (7-18) mg/dL Creatinine 1.0 (0.8-1.3) mg/dL Est Cr Clr Drug Dosing 57.00 mL/min Estimated GFR (MDRD) > 60 (>60) Glucose 246 H (74-106) mg/dL POC Glucose 219 H (74-106) MG/DL Calcium 9.5 (8.5-10.1) mg/dL Total Bilirubin (0.2-1.0) mg/dL Direct Bilirubin (0.0-0.2) mg/dL Indirect Bilirubin AST (15-37) U/L ALT (12-78) U/L Alkaline Phosphatase (46-116) U/L Total Protein (6.4-8.2) g/dL Albumin (3.4-5.0) g/dL Globulin (2.3-3.5) g/dL Albumin/Globulin Ratio (1.2-2.2) 06/11/20 Range/Units 11:25 WBC (4.5-11.0) K/uL RBC (4.30-5.90) M/uL Hgb (12.0-15.0) g/dL Hct (40.0-54.0) % MCV (80-98) fL MCH (27-31) pg MCHC (32-36) % Plt Count (150-400) K/uL Neut % (Auto) (36-66) % Lymph % (Auto) (24-44) % Gregg % (Auto) (2-6) % Eos % (Auto) (2-4) % Baso % (Auto) (0-1) % Sodium (140-148) mmol/L Potassium (3.6-5.2) mmol/L Chloride (100-108) mmol/L Carbon Dioxide (21-32) mmol/L Anion Gap (5.0-14.0) mmol/L BUN (7-18) mg/dL Creatinine (0.8-1.3) mg/dL Est Cr Clr Drug Dosing mL/min Estimated GFR (MDRD) (>60) Glucose (74-106) mg/dL POC Glucose 327 H (74-106) MG/DL Calcium (8.5-10.1) mg/dL Total Bilirubin (0.2-1.0) mg/dL Direct Bilirubin (0.0-0.2) mg/dL Indirect Bilirubin AST (15-37) U/L ALT (12-78) U/L Alkaline Phosphatase (46-116) U/L Total Protein (6.4-8.2) g/dL Albumin (3.4-5.0) g/dL Globulin (2.3-3.5) g/dL Albumin/Globulin Ratio (1.2-2.2) Result Diagrams: 06/11/20 04:44 06/11/20 04:44 [place] Results Last 24 hrs: Microbiology 06/10/20 14:18 Gram Stain - Final Gallbladder Wound Culture - Preliminary Gram Positive Rods Anaerobic Culture - Preliminary NO GROWTH AFTER 1 DAY 06/09/20 21:55 Aerobic Blood Culture - Preliminary Blood - Venous NO GROWTH AFTER 1 DAY Anaerobic Blood Culture - Preliminary NO GROWTH AFTER 1 DAY 06/09/20 22:06 Aerobic Blood Culture - Preliminary Blood - Venous - Lab Draw NO GROWTH AFTER 1 DAY Anaerobic Blood Culture - Preliminary NO GROWTH AFTER 1 DAY Sepsis Event Note - Evaluation Sepsis Screening Result: No Definite Risk - Focused Exam Vital Signs: Vital Signs Temp Pulse Resp BP BP Pulse Ox 06/11/20 11:00 87 149/69 H 94 L 06/11/20 08:39 150/79 H 06/11/20 07:00 96.5 F L 81 150/79 H 95 06/11/20 02:55 97.5 F 76 16 134/68 95 - Problem List Review Problem List Initiated/Reviewed/Updated: Yes - My Orders Last 24 Hours: My Active Orders 06/11/20 13:45 Convert IV to Saline Lock [OM.PC] Routine 06/12/20 05:00 CBC WITH AUTO DIFF [HEME] Timed COMPREHENSIVE METABOLIC PN,CMP [CHEM] Timed - Plan Plan:: ASSESSMENT AND PLAN Acute Cholecystitis-stable since surgery yesterday -Saline lock IV -IV Antibiotic; Unasyn 3 gm IV every 6 hours -oxygen to keep saturations greater than 95% -blood cultures x2 pending -And a.m. labs: CBC, CMP -Soft diet -medication for pain or nausea -Surgical follow-up per Dr. Cervantes Diabetes Type 2 -not insulin dependent -Resume Metformin -Insulin short acting low dose sliding scale coverage -Blood glucose testing before meals and at bedtime Hypertension -continue outpatient therapy Maintenance issues -Nutrition-regular diet -[place] catheter -not indicated at this time -DVT: SCD -GI-PPI CODE STATUS: FULL ADMISSION STATUS-this patient will be admitted to observation status, expect no more than a one night hospital stay for evaluation and management of problems as outlined above. DISPOSITION-anticipate discharge to home after the hospital stay. PRIMARY CARE PROVIDER-Dr. Allison Maynard, [facility]
[2020-06-11] MEDS: glipiZIDE 5 MG Tab PO SCH (16:37)
[2020-06-11] MEDS: metFORMIN 500 MG Tab PO SCH (16:37)
[2020-06-11] MEDS: Pantoprazole 40 MG Tab.CR PO SCH (16:37)
[2020-06-11] MEDS: diphenhydrAMINE 25 MG Cap PO SCH (21:00)
[2020-06-12] MEDS: Ampicillin/Sulbactam Na 3 GM in Sodium Chloride 0.9% 100 ML IV SCH ×4 (01:52→19:20)
[2020-06-12] MEDS: Pantoprazole 40 MG Tab.CR PO SCH ×2 (07:38→16:36)
[2020-06-12] MEDS: Levothyroxine 112 MCG Tab PO SCH (07:38)
[2020-06-12] MEDS: metFORMIN 500 MG Tab PO SCH ×2 (07:39→16:35)
[2020-06-12] MEDS: glipiZIDE 5 MG Tab PO SCH ×2 (07:39→16:36)
[2020-06-12] MEDS: Insulin Lispro 100 Unit/ML 3 ML KwikPen SUBCUT SCH ×4 (07:40→21:14)
[2020-06-12] MEDS: Aspirin 81 MG Tab.EC PO SCH (08:34)
[2020-06-12] MEDS: Lisinopril 10 MG Tab PO SCH (08:35)
[2020-06-12] MEDS: Multivitamins with Iron/Calcium/Folic Acid/Minerals Tab PO SCH (08:36)
--- NOTE | 2020-06-12 11:25 | PCM.PN ---
- General Info Date of Service: 06/12/20 Subjective Update: Mr. Baldwin has improved since yesterday appetite and overall strength are better. Pain has improved and white blood cell count has almost normalized. Functional Status: Reports: Tolerating Diet, Ambulating, Urinating - Review of Systems General: Reports: No Symptoms Pulmonary: Reports: No Symptoms Cardiovascular: Reports: No Symptoms Gastrointestinal: Reports: Abdominal Pain. Denies: Diarrhea, Difficulty Swallowing, Hematochezia, Melena, Nausea, Vomiting Genitourinary: Reports: No Symptoms - Patient Data Vitals - Most Recent: Last Vital Signs Temp 96.4 F L 06/12/20 07:22 Pulse 94 06/12/20 07:22 Resp 18 06/12/20 07:22 BP 149/83 H 06/12/20 08:35 Pulse Ox 87 L 06/12/20 07:22 Weight - Most Recent: 164 lb 3.205 oz I&O - Last 24 Hours: Intake & Output 06/11/20 06/12/20 06/12/20 22:59 06:59 14:59 Intake Total 1130 200 Output Total 20 Balance 1130 180 Lab Results Last 24 Hours: Laboratory Results - last 24 hr 06/11/20 06/11/20 06/11/20 Range/Units 11:25 16:30 21:00 WBC (4.5-11.0) K/uL RBC (4.30-5.90) M/uL Hgb (12.0-15.0) g/dL Hct (40.0-54.0) % MCV (80-98) fL MCH (27-31) pg MCHC (32-36) % Plt Count (150-400) K/uL Neut % (Auto) (36-66) % Lymph % (Auto) (24-44) % [place] % (Auto) (2-6) % Eos % (Auto) (2-4) % Baso % (Auto) (0-1) % Sodium (140-148) mmol/L Potassium (3.6-5.2) mmol/L Chloride (100-108) mmol/L Carbon Dioxide (21-32) mmol/L Anion Gap (5.0-14.0) mmol/L BUN (7-18) mg/dL Creatinine (0.8-1.3) mg/dL Est Cr Clr Drug Dosing mL/min Estimated GFR (MDRD) (>60) Glucose (74-106) mg/dL POC Glucose 327 H 228 H 117 H (74-106) MG/DL Calcium (8.5-10.1) mg/dL Total Bilirubin (0.2-1.0) mg/dL AST (15-37) U/L ALT (12-78) U/L Alkaline Phosphatase (46-116) U/L Total Protein (6.4-8.2) g/dL Albumin (3.4-5.0) g/dL Globulin (2.3-3.5) g/dL Albumin/Globulin Ratio (1.2-2.2) 06/12/20 06/12/20 06/12/20 Range/Units 04:15 04:15 07:30 WBC 12.4 H (4.5-11.0) K/uL RBC 4.08 L (4.30-5.90) M/uL Hgb 11.8 L (12.0-15.0) g/dL Hct 35.8 L (40.0-54.0) % MCV 88 (80-98) fL MCH 29 (27-31) pg MCHC 33 (32-36) % Plt Count 310 (150-400) K/uL Neut % (Auto) 78 H (36-66) % Lymph % (Auto) 14 L (24-44) % [place] % (Auto) 7 H (2-6) % Eos % (Auto) 1 L (2-4) % Baso % (Auto) 0 (0-1) % Sodium 143 (140-148) mmol/L Potassium 3.8 (3.6-5.2) mmol/L Chloride 104 (100-108) mmol/L Carbon Dioxide 29 (21-32) mmol/L Anion Gap 9.8 (5.0-14.0) mmol/L BUN 17 (7-18) mg/dL Creatinine 1.1 (0.8-1.3) mg/dL Est Cr Clr Drug Dosing 51.82 mL/min Estimated GFR (MDRD) > 60 (>60) Glucose 169 H (74-106) mg/dL POC Glucose 150 H (74-106) MG/DL Calcium 9.1 (8.5-10.1) mg/dL Total Bilirubin 0.3 (0.2-1.0) mg/dL AST 35 (15-37) U/L ALT 60 (12-78) U/L Alkaline Phosphatase 99 (46-116) U/L Total Protein 6.1 L (6.4-8.2) g/dL Albumin 2.5 L (3.4-5.0) g/dL Globulin 3.6 H (2.3-3.5) g/dL Albumin/Globulin Ratio 0.7 L (1.2-2.2) [place] Results Last 24 Hours: Microbiology 06/10/20 14:18 Gram Stain - Final Gallbladder Wound Culture - Preliminary Gram Positive Rods Anaerobic Culture - Preliminary 06/09/20 21:55 Aerobic Blood Culture - Preliminary Blood - Venous NO GROWTH AFTER 2 DAYS Anaerobic Blood Culture - Preliminary NO GROWTH AFTER 2 DAYS 06/09/20 22:06 Aerobic Blood Culture - Preliminary Blood - Venous - Lab Draw NO GROWTH AFTER 2 DAYS Anaerobic Blood Culture - Preliminary NO GROWTH AFTER 2 DAYS Med Orders - Current: Current Medications Acetaminophen (Acetaminophen 325 Mg Tab) 650 mg PO Q4H PRN PRN Reason: Pain (Mild 1-3)/fever Albuterol (Albuterol 0.083% 2.5 Mg/3 Ml Neb Soln) 2.5 mg NEB Q4H PRN PRN Reason: Shortness Of Breath/wheezing Last Admin: 06/10/20 11:30 Dose: 2.5 mg Documented by: Albuterol/Ipratropium (Albuterol/Ipratropium 4 Gm Inhalation [place]) 0 gm INH Q4H PRN PRN Reason: Dyspnea Aspirin (Aspirin 81 Mg Tab.Ec) 81 mg PO DAILY [facility] Last Admin: 06/12/20 08:34 Dose: 81 mg Documented by: Bisacodyl (Bisacodyl 5 Mg Tab) 5 mg PO DAILY PRN PRN Reason: Constipation Last Admin: 06/11/20 21:17 Dose: 5 mg Documented by: Cetirizine HCl (Cetirizine 10 Mg Tab) 10 mg PO BEDTIME PRN PRN Reason: Allergies Last Admin: 06/10/20 22:15 Dose: 10 mg Documented by: Diphenhydramine HCl (Diphenhydramine 25 Mg Cap) 25 mg PO BEDTIME [place] Last Admin: 06/11/20 21:00 Dose: 25 mg Documented by: Docusate Sodium (Docusate Sodium 100 Mg Cap) 100 mg PO BID PRN PRN Reason: Constipation Last Admin: 06/11/20 21:17 Dose: 100 mg Documented by: Glipizide (Glipizide 5 Mg Tab) 2.5 mg PO BIDAC [facility] Last Admin: 06/12/20 07:39 Dose: 2.5 mg Documented by: Ampicillin Sodium/Sulbactam (Sodium 3 gm/ Sodium Chloride) 100 mls @ 200 mls/hr IV Q6H [facility] Last Admin: 06/12/20 07:38 Dose: 200 mls/hr Documented by: Insulin Human Lispro (Insulin Lispro 100 Unit/Ml 3 Ml Kwikpen) 0 unit SUBCUT QIDACANDBED [facility]; Protocol Last Admin: 06/12/20 07:40 Dose: 1 unit Documented by: Levothyroxine Sodium (Levothyroxine 112 Mcg Tab) 112 mcg PO ACBREAKFAST [facility] Last Admin: 06/12/20 07:38 Dose: 112 mcg Documented by: Lisinopril (Lisinopril 10 Mg Tab) 10 mg PO DAILY [facility] Last Admin: 06/12/20 08:35 Dose: 10 mg Documented by: Lovastatin (Lovastatin 20 Mg Tab) 10 mg PO DAILY [facility] Last Admin: 06/12/20 08:34 Dose: 10 mg Documented by: Metformin HCl (Metformin 500 Mg Tab) 1,000 mg PO BIDMEALS [facility] Last Admin: 06/12/20 07:39 Dose: 1,000 mg Documented by: Multivitamins/Minerals (Multivitamins With Iron/Calcium/Folic Acid/Minerals Tab) 1 tab PO DAILY [facility] Last Admin: 06/12/20 08:36 Dose: 1 tab Documented by: Ondansetron HCl (Ondansetron 4 Mg Tab.Dis) 4 mg PO Q6H PRN PRN Reason: Nausea able to take PO Oxycodone HCl (Oxycodone 5 Mg Tab) 5 mg PO Q4H PRN PRN Reason: Pain (moderate 4-6) Last Admin: 06/11/20 20:59 Dose: 5 mg Documented by: Pantoprazole Sodium (Pantoprazole 40 Mg Tab.Cr) 40 mg PO BIDAC [facility] Last Admin: 06/12/20 07:38 Dose: 40 mg Documented by: Sodium Chloride (Sodium Chloride 0.9% 10 Ml Syringe) 10 ml FLUSH ASDIRECTED PRN PRN Reason: Keep Vein Open Discontinued Medications Aspirin (Aspirin 81 Mg Ec Ptom) 81 mg PO DAILY [facility] Last Admin: 06/11/20 08:42 Dose: 81 mg Documented by: Bupivacaine HCl (Bupivacaine 0.5% 50 Ml Mdv) Confirm Administered Dose 50 ml .ROUTE .STK-MED ONE Stop: 06/10/20 08:44 Ropivacaine 37 ml/Dexamethasone 8 mg/Epinephrine HCl 0.4 mg/ Sodium Chloride 40.6 ml 0 ml NERVRT ASDIRECTED [facility] Last Admin: 06/10/20 13:42 Dose: 80 syringe Documented by: Dexamethasone (Dexamethasone 4 Mg/Ml Sdv) Confirm Administered Dose 4 mg .ROUTE .STK-MED ONE Stop: 06/10/20 12:31 Ephedrine Sulfate (Ephedrine 50 Mg/Ml Sdv) Confirm Administered Dose 50 mg .ROUTE .STK-MED ONE Stop: 06/10/20 14:15 Fentanyl (Fentanyl 100 Mcg/2 Ml Sdv) Confirm Administered Dose 100 mcg .ROUTE .STK-MED ONE Stop: 06/10/20 07:43 Fentanyl (Fentanyl 100 Mcg/2 Ml Sdv) Confirm Administered Dose 100 mcg .ROUTE .STK-MED ONE Stop: 06/10/20 14:25 Glipizide (Glipizide 5 Mg Tab) 2.5 mg PO BIDAC [facility] Last Admin: 06/10/20 22:15 Dose: 2.5 mg Documented by: Glipizide (Glipizide 5 Mg Ptom) 2.5 mg PO BIDAC [facility] Last Admin: 06/11/20 08:41 Dose: 2.5 mg Documented by: Glycopyrrolate (Glycopyrrolate 0.2 Mg/Ml 5 Ml Mdv) Confirm Administered Dose 1 mg .ROUTE .STK-MED ONE Stop: 06/10/20 12:31 Hydromorphone HCl (Hydromorphone 0.5 Mg/0.5 Ml Syringe) 0.5 mg IVPUSH ONETIME ONE Stop: 06/09/20 17:20 Last Admin: 06/09/20 18:11 Dose: 0.5 mg Documented by: Metronidazole 500 mg/ Premix 100 mls @ 100 mls/hr IV ONETIME ONE Stop: 06/09/20 18:51 Last Admin: 06/09/20 18:12 Dose: 100 mls/hr Documented by: Lactated Ringer's (Ringers, Lactated) 1,000 mls @ 100 mls/hr IV ASDIRECTED [facility] Last Admin: 06/10/20 11:31 Dose: 100 mls/hr Documented by: Sodium Chloride (Normal Saline) 1,000 mls @ 250 mls/hr IV ASDIRECTED [facility] Last Admin: 06/09/20 19:56 Dose: 250 mls/hr Documented by: Sodium Chloride (Normal Saline) Confirm Administered Dose 10 mls @ as directed .ROUTE .STK-MED ONE Stop: 06/10/20 14:15 Lactated Ringer's (Ringers, Lactated) Confirm Administered Dose 1,000 mls @ as directed .ROUTE .[facility] ONE Stop: 06/10/20 14:43 Lidocaine/Epinephrine (Lidocaine 1% With Epinephrine 1:100,000 50 Ml Mdv) Confirm Administered Dose 50 ml .ROUTE .[facility] ONE Stop: 06/10/20 08:44 Lisinopril (Lisinopril 10 Mg Ptom) 10 mg PO DAILY [facility] Last Admin: 06/11/20 08:39 Dose: 10 mg Documented by: Metformin HCl (Metformin 500 Mg Tab) 1,000 mg PO BIDMEALS [facility] Last Admin: 06/10/20 22:14 Dose: 1,000 mg Documented by: Midazolam HCl (Midazolam 1 Mg/Ml 2 Ml Sdv) Confirm Administered Dose 2 mg .ROUTE .[facility] ONE Stop: 06/10/20 07:43 Multivitamins/Minerals (Multivitamins Ptom) 1 tab PO DAILY [facility] Last Admin: 06/11/20 08:42 Dose: 1 tab Documented by: Neostigmine Methylsulfate (Neostigmine Methylsulfate 1 Mg/Ml 5 Ml Syringe) Confirm Administered Dose 5 mg .ROUTE .STK-MED ONE Stop: 06/10/20 12:31 Ondansetron HCl (Ondansetron 4 Mg/2 Ml Sdv) 4 mg IV ONETIME ONE Stop: 06/09/20 17:25 Last Admin: 06/09/20 18:10 Dose: 4 mg Documented by: Ondansetron HCl (Ondansetron 4 Mg/2 Ml Sdv) Confirm Administered Dose 4 mg .ROUTE .STK-MED ONE Stop: 06/10/20 12:31 Pantoprazole Sodium (Pantoprazole 40 Mg Vial) 40 mg IV DAILY [facility] Last Admin: 06/09/20 21:10 Dose: 40 mg Documented by: Pantoprazole Sodium (Pantoprazole 40 Mg Vial) 40 mg IV BEDTIME [facility] Last Admin: 06/10/20 22:20 Dose: Not Given Documented by: Pantoprazole Sodium (Pantoprazole 40 Mg Ptom) 40 mg PO BIDAC [facility] Last Admin: 06/11/20 08:43 Dose: 40 mg Documented by: Metformin 1000mg (Ptom) 0 each PO BIDMEALS [facility] Last Admin: 06/11/20 08:43 Dose: 1 each Documented by: Propofol (Propofol 200 Mg/20 Ml Sdv) Confirm Administered Dose 200 mg .ROUTE .STK-MED ONE Stop: 06/10/20 07:43 Propofol (Propofol 200 Mg/20 Ml Sdv) Confirm Administered Dose 200 mg .ROUTE .STK-MED ONE Stop: 06/10/20 12:31 Rocuronium [place] (Rocuronium 50 Mg/5 Ml Vial) Confirm Administered Dose 50 mg .ROUTE .STK-MED ONE Stop: 06/10/20 12:31 Succinylcholine Chloride (Succinylcholine 200 Mg/10 Ml Mdv) Confirm Administered Dose 200 mg .ROUTE .STK-MED ONE Stop: 06/10/20 12:31 - Exam Quality Assessment: DVT Prophylaxis General: Alert, Oriented, Cooperative, No Acute Distress Lungs: Clear to Auscultation, Normal Respiratory Effort Cardiovascular: Regular Rate, Regular Rhythm, No Murmurs GI/Abdominal Exam: Soft, No Organomegaly, Tender. No: Distended, Guarding, Rigid, Rebound Extremities: Non-Tender, No Pedal Edema - Patient Data Lab Results Last 24 hrs: Laboratory Results - last 24 hr 06/11/20 06/11/20 06/11/20 Range/Units 11:25 16:30 21:00 WBC (4.5-11.0) K/uL RBC (4.30-5.90) M/uL Hgb (12.0-15.0) g/dL Hct (40.0-54.0) % MCV (80-98) fL MCH (27-31) pg MCHC (32-36) % Plt Count (150-400) K/uL Neut % (Auto) (36-66) % Lymph % (Auto) (24-44) % [place] % (Auto) (2-6) % Eos % (Auto) (2-4) % Baso % (Auto) (0-1) % Sodium (140-148) mmol/L Potassium (3.6-5.2) mmol/L Chloride (100-108) mmol/L Carbon Dioxide (21-32) mmol/L Anion Gap (5.0-14.0) mmol/L BUN (7-18) mg/dL Creatinine (0.8-1.3) mg/dL Est Cr Clr Drug Dosing mL/min Estimated GFR (MDRD) (>60) Glucose (74-106) mg/dL POC Glucose 327 H 228 H 117 H (74-106) MG/DL Calcium (8.5-10.1) mg/dL Total Bilirubin (0.2-1.0) mg/dL AST (15-37) U/L ALT (12-78) U/L Alkaline Phosphatase (46-116) U/L Total Protein (6.4-8.2) g/dL Albumin (3.4-5.0) g/dL Globulin (2.3-3.5) g/dL Albumin/Globulin Ratio (1.2-2.2) 06/12/20 06/12/20 06/12/20 Range/Units 04:15 04:15 07:30 WBC 12.4 H (4.5-11.0) K/uL RBC 4.08 L (4.30-5.90) M/uL Hgb 11.8 L (12.0-15.0) g/dL Hct 35.8 L (40.0-54.0) % MCV 88 (80-98) fL MCH 29 (27-31) pg MCHC 33 (32-36) % Plt Count 310 (150-400) K/uL Neut % (Auto) 78 H (36-66) % Lymph % (Auto) 14 L (24-44) % [place] % (Auto) 7 H (2-6) % Eos % (Auto) 1 L (2-4) % Baso % (Auto) 0 (0-1) % Sodium 143 (140-148) mmol/L Potassium 3.8 (3.6-5.2) mmol/L Chloride 104 (100-108) mmol/L Carbon Dioxide 29 (21-32) mmol/L Anion Gap 9.8 (5.0-14.0) mmol/L BUN 17 (7-18) mg/dL Creatinine 1.1 (0.8-1.3) mg/dL Est Cr Clr Drug Dosing 51.82 mL/min Estimated GFR (MDRD) > 60 (>60) Glucose 169 H (74-106) mg/dL POC Glucose 150 H (74-106) MG/DL Calcium 9.1 (8.5-10.1) mg/dL Total Bilirubin 0.3 (0.2-1.0) mg/dL AST 35 (15-37) U/L ALT 60 (12-78) U/L Alkaline Phosphatase 99 (46-116) U/L Total Protein 6.1 L (6.4-8.2) g/dL Albumin 2.5 L (3.4-5.0) g/dL Globulin 3.6 H (2.3-3.5) g/dL Albumin/Globulin Ratio 0.7 L (1.2-2.2) Result Diagrams: 06/12/20 04:15 06/12/20 04:15 [place] Results Last 24 hrs: Microbiology 06/10/20 14:18 Gram Stain - Final Gallbladder Wound Culture - Preliminary Gram Positive Rods Anaerobic Culture - Preliminary 06/09/20 21:55 Aerobic Blood Culture - Preliminary Blood - Venous NO GROWTH AFTER 2 DAYS Anaerobic Blood Culture - Preliminary NO GROWTH AFTER 2 DAYS 06/09/20 22:06 Aerobic Blood Culture - Preliminary Blood - Venous - Lab Draw NO GROWTH AFTER 2 DAYS Anaerobic Blood Culture - Preliminary NO GROWTH AFTER 2 DAYS Sepsis Event Note - Evaluation Sepsis Screening Result: Sepsis Risk - Focused Exam Vital Signs: Vital Signs Temp Pulse Resp BP BP Pulse Ox 06/12/20 08:35 149/83 H 06/12/20 07:22 96.4 F L 94 18 149/83 H 87 L 06/12/20 01:55 96.6 F L 88 16 132/72 94 L - Problem List Review Problem List Initiated/Reviewed/Updated: Yes - My Orders Last 24 Hours: My Active Orders 06/11/20 13:45 Convert IV to Saline Lock [OM.PC] Routine 06/13/20 05:00 CBC WITH AUTO DIFF [HEME] Timed - Plan Plan:: ASSESSMENT AND PLAN Acute Cholecystitis-stable since surgery 2 days ago. Strength and appetite have improved. Blood cell count only modestly elevated -Saline lock IV -IV Antibiotic; Unasyn 3 gm IV every 6 hours -oxygen to keep saturations greater than 95% -blood cultures x2 pending -And a.m. labs: CBC, CMP -Soft diet -medication for pain or nausea -Surgical follow-up per Dr. Cervantes Diabetes Type 2 -not insulin dependent -Resume Metformin -Insulin short acting low dose sliding scale coverage -Blood glucose testing before meals and at bedtime Hypertension -continue outpatient therapy Maintenance issues -Nutrition-regular diet -[place] catheter -not indicated at this time -DVT: SCD -GI-PPI CODE STATUS: FULL ADMISSION STATUS-this patient will be admitted to observation status, expect no more than a one night hospital stay for evaluation and management of problems as outlined above. DISPOSITION-anticipate discharge to home after the hospital stay. PRIMARY CARE PROVIDER-Dr. Allison Maynard, [facility]
[2020-06-12] MEDS: diphenhydrAMINE 25 MG Cap PO SCH (21:15)
[2020-06-13] MEDS: Ampicillin/Sulbactam Na 3 GM in Sodium Chloride 0.9% 100 ML IV SCH ×2 (02:50→07:48)
[2020-06-13] MEDS: Pantoprazole 40 MG Tab.CR PO SCH (07:49)
[2020-06-13] MEDS: Levothyroxine 112 MCG Tab PO SCH (07:49)
[2020-06-13] MEDS: metFORMIN 500 MG Tab PO SCH (07:49)
[2020-06-13] MEDS: glipiZIDE 5 MG Tab PO SCH (07:50)
[2020-06-13] MEDS: Insulin Lispro 100 Unit/ML 3 ML KwikPen SUBCUT SCH (07:50)
[2020-06-13] MEDS: Lisinopril 10 MG Tab PO SCH (08:43)
[2020-06-13] MEDS: Aspirin 81 MG Tab.EC PO SCH (08:43)
[2020-06-13] MEDS: Multivitamins with Iron/Calcium/Folic Acid/Minerals Tab PO SCH (08:43)
--- NOTE | 2020-06-13 10:21 | PCM.DCSUM1 ---
Discharge Summary - Hospital Course Brief History: Mr. Baldwin is an 79-year-old gentleman who was admitted through the emergency department with nausea and right upper quadrant abdominal pain secondary to acute cholecystitis. - Discharge Data Discharge Date: 06/13/20 Discharge Disposition: Home, Self-Care 01 Condition: Fair - Referral to Home Health Primary Care Physician: Suri Maynard PA-C - Discharge Diagnosis/Problem(s) (1) Nausea SNOMED Code(s): 990440428 ICD Code: R11.0 - NAUSEA Status: Acute Current Visit: No (2) Acute cholecystitis SNOMED Code(s): 74970980 ICD Code: K81.0 - ACUTE CHOLECYSTITIS Status: Acute Priority: High Current Visit: Yes (3) Type 2 diabetes mellitus SNOMED Code(s): 23115473 ICD Code: E11.9 - TYPE 2 DIABETES MELLITUS WITHOUT COMPLICATIONS Status: Chronic Priority: Low Current Visit: Yes Qualifiers: Diabetes mellitus assisted insulin use: without assisted use Diabetes mellitus complication status: without complication Qualified Code(s): E11.9 - Type 2 diabetes mellitus without complications - Patient Summary/Data Consults: Consultations 06/09/20 19:19 Consult to Physician [CONS] Urgent Consulting Provider: Jake Abbott Courtesy Call Completed to Consulting Physician: Yes Reason for Consult: acute cholecystitis Person Notified: Dr. Jake Abbott Date Notified: 06/09/20 Time Notified: 17:50 Special Instructions: surgery in am Hospital Course: Mr. Baldwin is an 79-year-old gentleman who was admitted through the emergency department with right upper quadrant abdominal pain and nausea secondary to acute cholecystitis. He had been hospitalized earlier in the week with symptoms of abdominal pain and chest pain. Symptoms resolved at that time in the emergency department and he was admitted to observation status to rule out myoca rdial infarction. Serial troponin levels remained within normal range and he was discharged home with follow-up exercise Myoview study scheduled. After discharged home he began experience recurrent symptoms of abdominal pain and nausea. He was seen and evaluated in outpatient clinic, ultrasound of the abdomen did show evidence of acute cholecystitis. He was tachycardic and borderline hypotensive, so he was referred to the emergency department. He was that more stable there and did receive IV fluids and was started on IV antibiotic therapy. He was admitted to the hospital and kept n.p.o. after midnight. He was seen and evaluated by Dr. Cervantes and taken to surgery for cholecystectomy. Because of significant infection in the gallbladder he was kept a few extra days for ongoing IV antibiotic therapy. By the time of discharge he was tolerating a regular diet and white blood cell count had normalized. Vital signs were stable and he had been afebrile since admission. Follow-up appointment will be scheduled with Dr. Cervantes in 1 week and he has received a prescription from Dr. Cervantes for additional antibiotic therapy for 1 week with Augmentin as well as pain medication. He will also be discharged home with Zofran as needed for nausea. He is instructed to avoid lifting more than 10 pounds, otherwise activity will be as tolerated and he will remain on a diabetic diet. Blood glucose levels were monitored throughout hospital stay and he was treated with sliding scale Humalog. - Patient Instructions Diet: Diabetic Diet Activity: As Tolerated, No Lifting Over 10 Pounds Other/Special Instructions: Please schedule follow-up appointment with Dr. Cervantes in 1 week. - Discharge Plan *PRESCRIPTION DRUG MONITORING PROGRAM REVIEWED*: Not Applicable *COPY OF PRESCRIPTION DRUG MONITORING REPORT IN PATIENT [place]: Not Applicable Prescriptions/Med Rec: Amoxicillin/Potassium Clav [Augmentin 875-125 Tablet] 1 each PO BID #14 tablet Ondansetron [Zofran ODT] 4 mg PO Q6H PRN #12 tab.dis PRN Reason: Nausea Home Medications: Home Meds Aspirin 81 mg PO DAILY 01/15/18 [History] Cetirizine HCl [Zyrtec] 10 mg PO BEDTIME PRN 01/15/18 [History] Lovastatin [Mevacor] 10 mg PO DAILY 01/15/18 [History] Multivitamin with Minerals [Multiple Vitamin] 1 tab PO DAILY 01/15/18 [History] lisinopriL [Prinivil] 10 mg PO DAILY 01/15/18 [History] metFORMIN HCl [Metformin HCl] 1,000 mg PO BID 01/15/18 [History] Albuterol/Ipratropium [Combivent Respimat] 1 puff IH Q4H PRN 04/06/20 [History] Levothyroxine Sodium [Euthyrox] 112 mcg PO DAILY 04/06/20 [History] Pantoprazole Sodium [Protonix] 40 mg PO BID #60 tablet. 06/08/20 [Rx] glipiZIDE [Glucotrol] 2.5 mg PO BID 06/08/20 [History] Amoxicillin/Potassium Clav [Augmentin 875-125 Tablet] 1 each PO BID #14 tablet 06/13/20 [Rx] Ondansetron [Zofran ODT] 4 mg PO Q6H PRN #12 tab.dis 06/13/20 [Rx] Patient Handouts: Laparoscopic Cholecystectomy, Preventing Problems After Surgery, Preventing Constipation After Surgery, Surgical Drain Home Care Referrals: Stephan Cervantes MD [Physician] - 06/17/20 12:40 pm - Discharge Summary/Plan Comment DC Time >30 min.: No - Patient Data Vitals - Most Recent: Last Vital Signs Temp 97.5 F 06/13/20 07:00 Pulse 88 06/13/20 07:00 Resp 18 06/13/20 07:00 BP 142/73 H 06/13/20 08:43 Pulse Ox 95 06/13/20 07:00 Weight - Most Recent: 164 lb 3.205 oz I&O - Last 24 hours: Intake & Output 06/12/20 06/13/20 06/13/20 22:59 06:59 14:59 Intake Total 600 100 400 Output Total 5 Balance 595 100 400 Lab Results - Last 24 hrs: Laboratory Results - last 24 hr 06/12/20 06/12/20 06/12/20 Range/Units 11:30 16:30 21:01 WBC (4.5-11.0) K/uL RBC (4.30-5.90) M/uL Hgb (12.0-15.0) g/dL Hct (40.0-54.0) % MCV (80-98) fL MCH (27-31) pg MCHC (32-36) % Plt Count (150-400) K/uL Neut % (Auto) (36-66) % Lymph % (Auto) (24-44) % [place] % (Auto) (2-6) % Eos % (Auto) (2-4) % Baso % (Auto) (0-1) % POC Glucose 227 H 179 H 193 H (74-106) MG/DL 06/13/20 06/13/20 06/13/20 Range/Units 01:22 04:36 07:30 WBC 7.8 (4.5-11.0) K/uL RBC 4.20 L (4.30-5.90) M/uL Hgb 12.1 (12.0-15.0) g/dL Hct 36.7 L (40.0-54.0) % MCV 87 (80-98) fL MCH 29 (27-31) pg MCHC 33 (32-36) % Plt Count 323 (150-400) K/uL Neut % (Auto) 66 (36-66) % Lymph % (Auto) 20 L (24-44) % [place] % (Auto) 10 H (2-6) % Eos % (Auto) 4 (2-4) % Baso % (Auto) 0 (0-1) % POC Glucose 135 H 185 H (74-106) MG/DL DEISI Results - Last 24 hrs: Microbiology 06/10/20 14:18 Gram Stain - Final Gallbladder Wound Culture - Final Gram Positive Rods Anaerobic Culture - Final NO GROWTH AFTER 3 DAYS 06/09/20 21:55 Aerobic Blood Culture - Preliminary Blood - Venous NO GROWTH AFTER 3 DAYS Anaerobic Blood Culture - Preliminary NO GROWTH AFTER 3 DAYS 06/09/20 22:06 Aerobic Blood Culture - Preliminary Blood - Venous - Lab Draw NO GROWTH AFTER 3 DAYS Anaerobic Blood Culture - Preliminary NO GROWTH AFTER 3 DAYS Med Orders - Current: Current Medications Acetaminophen (Acetaminophen 325 Mg Tab) 650 mg PO Q4H PRN PRN Reason: Pain (Mild 1-3)/fever Albuterol (Albuterol 0.083% 2.5 Mg/3 Ml Neb Soln) 2.5 mg NEB Q4H PRN PRN Reason: Shortness Of Breath/wheezing Last Admin: 06/10/20 11:30 Dose: 2.5 mg Documented by: Albuterol/Ipratropium (Albuterol/Ipratropium 4 Gm Inhalation [place]) 0 gm INH Q4H PRN PRN Reason: Dyspnea Aspirin (Aspirin 81 Mg Tab.Ec) 81 mg PO DAILY [facility] Last Admin: 06/13/20 08:43 Dose: 81 mg Documented by: Bisacodyl (Bisacodyl 5 Mg Tab) 5 mg PO DAILY PRN PRN Reason: Constipation Last Admin: 06/11/20 21:17 Dose: 5 mg Documented by: Cetirizine HCl (Cetirizine 10 Mg Tab) 10 mg PO BEDTIME PRN PRN Reason: Allergies Last Admin: 06/10/20 22:15 Dose: 10 mg Documented by: Diphenhydramine HCl (Diphenhydramine 25 Mg Cap) 25 mg PO BEDTIME [facility] Last Admin: 06/12/20 21:15 Dose: 25 mg Documented by: Docusate Sodium (Docusate Sodium 100 Mg Cap) 100 mg PO BID PRN PRN Reason: Constipation Last Admin: 06/11/20 21:17 Dose: 100 mg Documented by: Glipizide (Glipizide 5 Mg Tab) 2.5 mg PO BIDAC [facility] Last Admin: 06/13/20 07:50 Dose: 2.5 mg Documented by: Ampicillin Sodium/Sulbactam (Sodium 3 gm/ Sodium Chloride) 100 mls @ 200 mls/hr IV Q6H [facility] Last Admin: 06/13/20 07:48 Dose: 200 mls/hr Documented by: Insulin Human Lispro (Insulin Lispro 100 Unit/Ml 3 Ml Kwikpen) 0 unit SUBCUT QIDACANDBED [facility]; Protocol Last Admin: 06/13/20 07:50 Dose: 1 unit Documented by: Levothyroxine Sodium (Levothyroxine 112 Mcg Tab) 112 mcg PO ACBREAKFAST [facility] Last Admin: 06/13/20 07:49 Dose: 112 mcg Documented by: Lisinopril (Lisinopril 10 Mg Tab) 10 mg PO DAILY [facility] Last Admin: 06/13/20 08:43 Dose: 10 mg Documented by: Lovastatin (Lovastatin 20 Mg Tab) 10 mg PO DAILY [facility] Last Admin: 06/13/20 08:42 Dose: 10 mg Documented by: Metformin HCl (Metformin 500 Mg Tab) 1,000 mg PO BIDMEALS [facility] Last Admin: 06/13/20 07:49 Dose: 1,000 mg Documented by: Multivitamins/Minerals (Multivitamins With Iron/Calcium/Folic Acid/Minerals Tab) 1 tab PO DAILY [facility] Last Admin: 06/13/20 08:43 Dose: 1 tab Documented by: Ondansetron HCl (Ondansetron 4 Mg Tab.Dis) 4 mg PO Q6H PRN PRN Reason: Nausea able to take PO Last Admin: 06/13/20 09:06 Dose: 4 mg Documented by: Oxycodone HCl (Oxycodone 5 Mg Tab) 5 mg PO Q4H PRN PRN Reason: Pain (moderate 4-6) Last Admin: 06/11/20 20:59 Dose: 5 mg Documented by: Pantoprazole Sodium (Pantoprazole 40 Mg Tab.Cr) 40 mg PO BIDAC [facility] Last Admin: 06/13/20 07:49 Dose: 40 mg Documented by: Sodium Chloride (Sodium Chloride 0.9% 10 Ml Syringe) 10 ml FLUSH ASDIRECTED PRN PRN Reason: Keep Vein Open Discontinued Medications Aspirin (Aspirin 81 Mg Ec Ptom) 81 mg PO DAILY [facility] Last Admin: 06/11/20 08:42 Dose: 81 mg Documented by: Bupivacaine HCl (Bupivacaine 0.5% 50 Ml Mdv) Confirm Administered Dose 50 ml .ROUTE .STK-MED ONE Stop: 06/10/20 08:44 Ropivacaine 37 ml/Dexamethasone 8 mg/Epinephrine HCl 0.4 mg/ Sodium Chloride 40.6 ml 0 ml NERVRT ASDIRECTED [facility] Last Admin: 06/10/20 13:42 Dose: 80 syringe Documented by: Dexamethasone (Dexamethasone 4 Mg/Ml Sdv) Confirm Administered Dose 4 mg .ROUTE .STK-MED ONE Stop: 06/10/20 12:31 Ephedrine Sulfate (Ephedrine 50 Mg/Ml Sdv) Confirm Administered Dose 50 mg .ROUTE .STK-MED ONE Stop: 06/10/20 14:15 Fentanyl (Fentanyl 100 Mcg/2 Ml Sdv) Confirm Administered Dose 100 mcg .ROUTE .STK-MED ONE Stop: 06/10/20 07:43 Fentanyl (Fentanyl 100 Mcg/2 Ml Sdv) Confirm Administered Dose 100 mcg .ROUTE .STK-MED ONE Stop: 06/10/20 14:25 Glipizide (Glipizide 5 Mg Tab) 2.5 mg PO BIDAC [facility] Last Admin: 06/10/20 22:15 Dose: 2.5 mg Documented by: Glipizide (Glipizide 5 Mg Ptom) 2.5 mg PO BIDAC [facility] Last Admin: 06/11/20 08:41 Dose: 2.5 mg Documented by: Glycopyrrolate (Glycopyrrolate 0.2 Mg/Ml 5 Ml Mdv) Confirm Administered Dose 1 mg .ROUTE .STK-MED ONE Stop: 06/10/20 12:31 Hydromorphone HCl (Hydromorphone 0.5 Mg/0.5 Ml Syringe) 0.5 mg IVPUSH ONETIME ONE Stop: 06/09/20 17:20 Last Admin: 06/09/20 18:11 Dose: 0.5 mg Documented by: Metronidazole 500 mg/ Premix 100 mls @ 100 mls/hr IV ONETIME ONE Stop: 06/09/20 18:51 Last Admin: 06/09/20 18:12 Dose: 100 mls/hr Documented by: Lactated Ringer's (Ringers, Lactated) 1,000 mls @ 100 mls/hr IV ASDIRECTED [facility] Last Admin: 06/10/20 11:31 Dose: 100 mls/hr Documented by: Sodium Chloride (Normal Saline) 1,000 mls @ 250 mls/hr IV ASDIRECTED [facility] Last Admin: 06/09/20 19:56 Dose: 250 mls/hr Documented by: Sodium Chloride (Normal Saline) Confirm Administered Dose 10 mls @ as directed .ROUTE .STK-MED ONE Stop: 06/10/20 14:15 Lactated Ringer's (Ringers, Lactated) Confirm Administered Dose 1,000 mls @ as directed .ROUTE .STK-MED ONE Stop: 06/10/20 14:43 Lidocaine/Epinephrine (Lidocaine 1% With Epinephrine 1:100,000 50 Ml Mdv) Confirm Administered Dose 50 ml .ROUTE .STK-MED ONE Stop: 06/10/20 08:44 Lisinopril (Lisinopril 10 Mg Ptom) 10 mg PO DAILY [facility] Last Admin: 06/11/20 08:39 Dose: 10 mg Documented by: Metformin HCl (Metformin 500 Mg Tab) 1,000 mg PO BIDMEALS [facility] Last Admin: 06/10/20 22:14 Dose: 1,000 mg Documented by: Midazolam HCl (Midazolam 1 Mg/Ml 2 Ml Sdv) Confirm Administered Dose 2 mg .ROUTE .STK-MED ONE Stop: 06/10/20 07:43 Multivitamins/Minerals (Multivitamins Ptom) 1 tab PO DAILY [facility] Last Admin: 06/11/20 08:42 Dose: 1 tab Documented by: Neostigmine Methylsulfate (Neostigmine Methylsulfate 1 Mg/Ml 5 Ml Syringe) Confirm Administered Dose 5 mg .ROUTE .STK-MED ONE Stop: 06/10/20 12:31 Ondansetron HCl (Ondansetron 4 Mg/2 Ml Sdv) 4 mg IV ONETIME ONE Stop: 06/09/20 17:25 Last Admin: 06/09/20 18:10 Dose: 4 mg Documented by: Ondansetron HCl (Ondansetron 4 Mg/2 Ml Sdv) Confirm Administered Dose 4 mg .ROUTE .STK-MED ONE Stop: 06/10/20 12:31 Pantoprazole Sodium (Pantoprazole 40 Mg Vial) 40 mg IV DAILY [facility] Last Admin: 06/09/20 21:10 Dose: 40 mg Documented by: Pantoprazole Sodium (Pantoprazole 40 Mg Vial) 40 mg IV BEDTIME [facility] Last Admin: 06/10/20 22:20 Dose: Not Given Documented by: Pantoprazole Sodium (Pantoprazole 40 Mg Ptom) 40 mg PO BIDAC [facility] Last Admin: 06/11/20 08:43 Dose: 40 mg Documented by: Metformin 1000mg (Ptom) 0 each PO BIDMEALS [facility] Last Admin: 06/11/20 08:43 Dose: 1 each Documented by: Propofol (Propofol 200 Mg/20 Ml Sdv) Confirm Administered Dose 200 mg .ROUTE .STK-MED ONE Stop: 06/10/20 07:43 Propofol (Propofol 200 Mg/20 Ml Sdv) Confirm Administered Dose 200 mg .ROUTE .STK-MED ONE Stop: 06/10/20 12:31 Rocuronium [place] (Rocuronium 50 Mg/5 Ml Vial) Confirm Administered Dose 50 mg .ROUTE .STK-MED ONE Stop: 06/10/20 12:31 Succinylcholine Chloride (Succinylcholine 200 Mg/10 Ml Mdv) Confirm Administered Dose 200 mg .ROUTE .STK-MED ONE Stop: 06/10/20 12:31 - Exam General: Reports: Alert, Oriented, Cooperative, Mild Distress Lungs: Reports: Clear to Auscultation, Normal Respiratory Effort Cardiovascular: Reports: Regular Rate, Regular Rhythm, No Murmurs GI/Abdominal Exam: Soft, No Organomegaly, Tender. No: Distended, Guarding, Rigid, Rebound
--- NOTE | 2020-06-14 06:54 | PN ---
DATE OF SERVICE: 06/12/2020 SUBJECTIVE: The patient is doing well. Significantly improved overnight. Pain is well controlled. No nausea, vomiting, shortness of breath, or chest pain. OBJECTIVE: VITAL SIGNS: Stable. He is afebrile per nursing report. CARDIOVASCULAR: Regular rhythm and rate. RESPIRATORY: Lungs are clear to auscultation bilaterally. Incisions healing well. ASSESSMENT: Status post laparoscopic cholecystectomy. PLAN: The patient will be probably discharged in the a.m. as he is doing quite well. Followup, will check the patient again in a.m. Stephan Cervantes MD /[id number]
--- NOTE | 2020-06-14 07:04 | PN ---
DATE OF SERVICE: 06/13/2020 SUBJECTIVE: Patient is doing very well. Pain is well controlled. No nausea, vomiting, shortness of breath, or chest pain. OBJECTIVE: VITAL SIGNS: Stable. CARDIOVASCULAR: Regular rhythm and rate. RESPIRATORY: Lungs clear to auscultation bilaterally. Incision is healing well. Drain is serosanguineous. ASSESSMENT: Status post laparoscopic cholecystectomy. PLAN: The patient will have drain removed today. He will be sent home on Augmentin antibiotics if okay with Hospitalist Service. Please see their discharge summary for further details. Stephan Cervantes MD /[id number]
== END 2020-06-13 11:02 | disposition home or self-care (01) | DRG 854 ==
LOC: JP.ED 17:12 → JP.MS 18:50 → OBSVTOIN 06-11 11:27
PROVIDERS: ADMIT Hospitalist; ATTEND Surgery
PROC: 0FT44ZZ Resection of Gallbladder, Percutaneous Endoscopic Approach (ICD-10-PCS; principal; 2020-06-10)
DX: A41.9 Sepsis, unspecified organism (principal); K80.00 Calculus of gallbladder with acute cholecystitis without obstruction; I10 Essential (primary) hypertension; E11.9 Type 2 diabetes mellitus without complications; E78.00 Pure hypercholesterolemia, unspecified; K21.9 Gastro-esophageal reflux disease without esophagitis; E03.9 Hypothyroidism, unspecified; H54.7 Unspecified visual loss; Z85.46 Personal history of malignant neoplasm of prostate; Z86.16 Personal history of COVID-19; Z98.49 Cataract extraction status, unspecified eye; Z79.82 Long term (current) use of aspirin; Z79.84 Long term (current) use of oral hypoglycemic drugs; Z79.899 Other long term (current) drug therapy; Z20.822 Contact with and (suspected) exposure to COVID-19; Z79.890 Hormone replacement therapy
CPT/HCPCS: 0241U; 36415; 80048; 80053; 80076; 82962; 83605; 83690; 85025; 85027; 86140; 87040; 87070; 87075; 87205; 88304; 93005; 94640; 94762; 96365; 96366; 96367; 96375; 96376; 99219; 99225; 99232; 99238; 99285; 99285-25; A9270-GY; C9113; G0378; J0171; J0295; J0330; J1100; J1170; J1815; J2250; J2405; J2704; J2710; J2795; J3010; J3490; J7030; J7120

== ENCOUNTER 2021-04-30 12:40 | Emergency (ER) | payer MEDICARE ==
[2021-04-30] MEDS ORDERED: Pantoprazole 40 MG Tab.CR PO ONE (13:48)
[2021-04-30] MEDS ORDERED: Sucralfate Suspension 1 GM/10 ML Cup PO ONE (13:48)
[2021-04-30] MEDS ORDERED: Sodium Chloride 0.9% 500 ML IV ONE (14:34)
[2021-04-30] MEDS ORDERED: Sodium Chloride 0.9% 10 ML Syringe FLUSH PRN (14:34)
[2021-04-30] MEDS ORDERED: Iopamidol 612 MG/ML 100 ML Bottle IV PRN (14:53)
[2021-04-30] MEDS ORDERED: Sodium Chloride 0.9% 75 ML IV SCH (15:00)
== END 2021-04-30 17:19 | disposition home or self-care (01) ==
LOC: JP.ED 12:40
DX: K27.9 Peptic ulcer, site unspecified, unspecified as acute or chronic, without hemorrhage or perforation (principal); I10 Essential (primary) hypertension; E11.9 Type 2 diabetes mellitus without complications; E03.9 Hypothyroidism, unspecified; Z79.82 Long term (current) use of aspirin; Z79.899 Other long term (current) drug therapy; Z79.84 Long term (current) use of oral hypoglycemic drugs
CPT/HCPCS: 36415; 74175; 80048; 80076; 83690; 85025; 99283; 99284; A9270; J7040; Q9967

== ENCOUNTER 2021-11-04 18:25 | Emergency (ER) | payer MEDICARE ==
[2021-11-04] MEDS ORDERED: Sodium Chloride 0.9% 10 ML Syringe FLUSH PRN (18:34)
[2021-11-04] MEDS ORDERED: HYDROmorphone 1 MG/ML Syringe IVPUSH ONE (18:54)
[2021-11-04 19:07] LABS: ESTIMATED GFR 67 mL/min (>60); TROPONIN I HIGH SENSITIVITY 23.4 pg/mL (<=60.3)
[2021-11-04] MEDS ORDERED: Gabapentin 300 MG Cap PO ONE (21:41)
== END 2021-11-04 22:05 | disposition home or self-care (01) ==
LOC: JP.ED 18:25
DX: S22.070A Wedge compression fracture of T9-T10 vertebra, initial encounter for closed fracture (principal); R07.89 Other chest pain; E78.00 Pure hypercholesterolemia, unspecified; I10 Essential (primary) hypertension; K21.9 Gastro-esophageal reflux disease without esophagitis; E11.9 Type 2 diabetes mellitus without complications; E03.9 Hypothyroidism, unspecified; Z79.82 Long term (current) use of aspirin; Z79.84 Long term (current) use of oral hypoglycemic drugs; Z79.899 Other long term (current) drug therapy; Z86.16 Personal history of COVID-19; Z20.822 Contact with and (suspected) exposure to COVID-19; W18.30XA Fall on same level, unspecified, initial encounter
CPT/HCPCS: 36415; 71250; 80053; 84484; 85025; 85610; 85730; 93005; 96374; 99284; A9270; J1170; J3490; U0002

== ENCOUNTER 2021-11-29 01:03 | Emergency (ER) | payer MEDICARE ==
[2021-11-29 01:57] LABS: ESTIMATED GFR 67 mL/min (>60)
== END 2021-11-29 02:07 | disposition home or self-care (01) ==
LOC: JP.ED 01:03
DX: U07.1 COVID-19 (principal); E11.9 Type 2 diabetes mellitus without complications; I10 Essential (primary) hypertension; E03.9 Hypothyroidism, unspecified; E78.00 Pure hypercholesterolemia, unspecified; Z79.899 Other long term (current) drug therapy; Z79.84 Long term (current) use of oral hypoglycemic drugs
CPT/HCPCS: 36415; 71045; 80053; 85025; 86140; 99285; U0002

== ENCOUNTER 2023-04-12 08:07 | Emergency (ER) | payer MEDICARE | END 2023-04-12 09:36 | disposition home or self-care (01) | LOC: JP.ED 08:07 | DX: F43.9 Reaction to severe stress, unspecified (principal); I10 Essential (primary) hypertension; K21.9 Gastro-esophageal reflux disease without esophagitis; E11.9 Type 2 diabetes mellitus without complications; E03.9 Hypothyroidism, unspecified; E78.00 Pure hypercholesterolemia, unspecified; Z79.84 Long term (current) use of oral hypoglycemic drugs; Z79.899 Other long term (current) drug therapy; Z86.16 Personal history of COVID-19 | CPT/HCPCS: 99283 ==

== ENCOUNTER 2024-10-12 05:57 | Emergency (ER) | payer MEDICARE ==
[2024-10-12 06:37] LABS: BASOPHILS ABSOLUTE AUTO 0.04 K/uL (0.00-0.10); BASOPHILS PERCENT AUTO 0.7 % (0.1-1.3); EOSINOPHILS ABSOLUTE AUTO 0.15 K/uL (0.00-0.40); EOSINOPHILS PERCENT AUTO 2.8 % (0.0-5.4); IMMATURE GRAN PERCENT AUTO 0.2 % (0.0-0.7); LYMPHOCYTES ABSOLUTE AUTO 1.21 K/uL (0.8-3.3); LYMPHOCYTES PERCENT AUTO 22.5 % (11.4-47.7); MONOCYTES ABSOLUTE AUTO 0.51 K/uL (0.20-0.90); MONOCYTES PERCENT AUTO 9.5 % (3.3-12.6); NEUTROPHILS ABSOLUTE AUTO 3.45 K/uL (1.0-7.6); NEUTROPHILS PERCENT AUTO 64.3 % (40.0-78.1); PLATELET COUNT,PLT 234 K/uL (130-375); RED BLOOD CELL COUNT 4.40 M/uL (4.14-5.76); WHITE BLOOD CELL COUNT,WBC 5.4 K/uL (3.2-11.0)
[2024-10-12 06:41] LABS: IMMATURE GRAN ABSOLUTE AUTO 0.01 K/uL (0.00-0.23)
[2024-10-12 06:59] LABS: BLOOD UREA NITROGEN,BUN 19.0 mg/dL (7-18); CARBON DIOXIDE,CO2 30.0 mmol/L (21-32); CHLORIDE,CL 104.0 mmol/L (100-108); CREATININE 1.0 mg/dL (0.8-1.3); EST CRCL DRUG DOSING (CG) 51.3 mL/min; ESTIMATED GFR 73.0 mL/min (>60); GLUCOSE RANDOM 158.0 mg/dL (74-106); POTASSIUM,K 4.1 mmol/L (3.6-5.2); SODIUM,NA 141.0 mmol/L (140-148)
== END 2024-10-12 08:20 | disposition home or self-care (01) ==
LOC: JP.ED 05:57
DX: R25.2 Cramp and spasm (principal); R44.1 Visual hallucinations; I10 Essential (primary) hypertension; E83.42 Hypomagnesemia; E11.9 Type 2 diabetes mellitus without complications; Z86.16 Personal history of COVID-19; Z79.84 Long term (current) use of oral hypoglycemic drugs; Z79.890 Hormone replacement therapy; Z79.899 Other long term (current) drug therapy
CPT/HCPCS: 36415; 80048; 83735; 84484; 85025; 93005; 99284